=== PATIENT | male | born 1950 | race African-American/Black ===

== ENCOUNTER 2017-08-09 23:12 | Inpatient (IN) ==
[2017-08-10] MEDS ORDERED: ONDANSETRON 4 MG/2 ML VIAL IV STA (03:49)
[2017-08-10 03:51] LABS: Basophils # 0.1 10*3/uL (0.0-0.2); Basophils % 0.5 % (0.0-0.8); Eosinophils % 0.2 % (0.00-10.9); Hematocrit 39.3 VOL% (42.0-52.0); Hemoglobin 13.1 GM/DL (14.0-18.0); Immature Granulocytes % 0.5 %; Immature Granulocytes Absolute 0.07 #; Lymphocytes # 1.4 10*3/uL (1.4-4.0); Lymphocytes % 9.5 % (21.2-54.2); Mean Corpuscular HGB Conc 33.3 GM/DL (32-36); Mean Corpuscular Hemoglobin 33 PG (27-34); Mean Platelet Volume 10.8 FL (9.6-12.0); Monocytes # 1.4 10*3/uL (0.11-0.8); Monocytes % 9.2 % (1.7-12.7); Neutrophils # 12.1 10*3/uL (1.4-7.4); Neutrophils % 80.1 % (38.7-73.9); Platelet Count 334 T/CUMM (130-400); Red Blood Count 3.97 MC/CUMM (3.8-5.5); Red Cell Distribution Width 13.7 % (9.3-17.3); White Blood Count 15.1 T/CUMM (4-12)
[2017-08-10 04:19] LABS: Lactic Acid 1.2 MMOL/L (0.4-2.0)
[2017-08-10] MEDS ORDERED: MORPHINE 4 MG/1 ML VIAL IV STA (04:19)
[2017-08-10] MEDS ORDERED: ONDANSETRON 4 MG/2 ML VIAL ONE ×2 (04:25→14:38)
[2017-08-10] MEDS ORDERED: MORPHINE 4 MG/1 ML VIAL ONE (04:29)
[2017-08-10 05:28] LABS: Sedimentation Rate-Westergren 57 MM/HR (0-20)
[2017-08-10] MEDS ORDERED: ALBUTEROL/IPRATROPIUM 3 ML NEB RESP TX PRN (05:34)
[2017-08-10] MEDS ORDERED: DEXTROSE 50% 25 GM/50 ML VIAL IV PRN ×2 (05:39→14:20)
[2017-08-10] MEDS ORDERED: GLUCAGON 1 MG VIAL IM PRN ×2 (05:39→14:20)
[2017-08-10 05:41] LABS: Albumin 2.5 G/DL (3.4-5.0); Bilirubin,Total 0.5 MG/DL (0.2-1.0); Osmolality,Calculated 275.7 MOS/KG (273-304); Potassium 5.5 MMOL/L (3.5-5.1); Total Protein 8.6 G/DL (6.4-8.3)
[2017-08-10] MEDS ORDERED: LORATADINE 10 MG TABLET PO PRN (05:42)
[2017-08-10] MEDS: HEPARIN 5,000 UNIT/1 ML VIAL SUBCUT SCH ×3 (08:42→21:12)
[2017-08-10] MEDS: INSULIN LISPRO 100 UNIT/ML SUBCUT SCH ×4 (08:42→21:11)
[2017-08-10] MEDS: PIPERACILLIN/TAZOBACTAM 3,375 MG in SODIUM CHLORIDE 0.9% 100 ML IV SCH ×2 (09:07→21:12)
[2017-08-10] MEDS ORDERED: LIDOCAINE 1% 50 ML VIAL ONE (13:34)
[2017-08-10] MEDS ORDERED: BUPIVACAINE MPF 0.25% 30 ML VIAL ONE (13:34)
[2017-08-10] MEDS ORDERED: MIDAZOLAM 2 MG/2 ML VIAL ONE (14:38)
[2017-08-10] MEDS ORDERED: fentaNYL 100 MCG/2 ML VIAL ONE (14:38)
[2017-08-10] MEDS: BENZONATATE 100 MG CAPSULE PO PRN (18:27)
[2017-08-11] MEDS: BENZONATATE 100 MG CAPSULE PO PRN (03:01)
[2017-08-11] MEDS: HEPARIN 5,000 UNIT/1 ML VIAL SUBCUT SCH ×3 (05:55→22:26)
[2017-08-11 06:42] LABS: Basophils # 0.1 10*3/uL (0.0-0.2); Eosinophils # 0.2 10*3/uL (0.0-0.87); Eosinophils % 2.4 % (0.00-10.9); Hematocrit 38.1 VOL% (42.0-52.0); Hemoglobin 12.8 GM/DL (14.0-18.0); Immature Granulocytes % 0.7 %; Immature Granulocytes Absolute 0.06 #; Lymphocytes # 0.8 10*3/uL (1.4-4.0); Lymphocytes % 8.3 % (21.2-54.2); Mean Corpuscular HGB Conc 33.6 GM/DL (32-36); Mean Corpuscular Hemoglobin 33 PG (27-34); Mean Corpuscular Volume 98.2 FL (87-102); Mean Platelet Volume 10.9 FL (9.6-12.0); Monocytes # 0.9 10*3/uL (0.11-0.8); Monocytes % 9.6 % (1.7-12.7); Neutrophils # 7.2 10*3/uL (1.4-7.4); Platelet Count 330 T/CUMM (130-400); Red Blood Count 3.88 MC/CUMM (3.8-5.5); Red Cell Distribution Width 13.5 % (9.3-17.3); White Blood Count 9.2 T/CUMM (4-12)
[2017-08-11 08:50] LABS: Calcium 8.7 MG/DL (8.5-10.1); Osmolality,Calculated 288.7 MOS/KG (273-304)
[2017-08-11 08:53] LABS: Potassium 6.6 MMOL/L (3.5-5.1)
[2017-08-11] MEDS: ONDANSETRON 4 MG/2 ML VIAL IV PRN (09:33)
[2017-08-11] MEDS: PIPERACILLIN/TAZOBACTAM 3,375 MG in SODIUM CHLORIDE 0.9% 100 ML IV SCH ×2 (09:38→23:37)
[2017-08-11] MEDS: INSULIN LISPRO 100 UNIT/ML SUBCUT SCH ×4 (09:39→21:49)
[2017-08-11] MEDS ORDERED: HEPARIN 10,000 UNIT/10 ML VIAL IV SCH (15:30)
[2017-08-11] MEDS ORDERED: VANCOMYCIN INJ 1,000 MG in SODIUM CHLORIDE 0.9% 250 ML IV PRN (15:55)
[2017-08-11] MEDS ORDERED: VANCOMYCIN INJ 2,250 MG in SODIUM CHLORIDE 0.9% 500 ML IV ONE (17:00)
[2017-08-12] MEDS: HEPARIN 5,000 UNIT/1 ML VIAL SUBCUT SCH ×3 (06:50→22:10)
[2017-08-12 07:31] LABS: Basophils # 0.1 10*3/uL (0.0-0.2); Eosinophils # 0.4 10*3/uL (0.0-0.87); Eosinophils % 3.4 % (0.00-10.9); Hematocrit 36.9 VOL% (42.0-52.0); Hemoglobin 11.9 GM/DL (14.0-18.0); Immature Granulocytes % 0.6 %; Immature Granulocytes Absolute 0.08 #; Lymphocytes # 1.3 10*3/uL (1.4-4.0); Lymphocytes % 10.4 % (21.2-54.2); Mean Corpuscular HGB Conc 32.2 GM/DL (32-36); Mean Corpuscular Hemoglobin 32 PG (27-34); Mean Platelet Volume 10.8 FL (9.6-12.0); Monocytes # 1.4 10*3/uL (0.11-0.8); Monocytes % 11.3 % (1.7-12.7); Neutrophils # 9.3 10*3/uL (1.4-7.4); Neutrophils % 73.3 % (38.7-73.9); Platelet Count 336 T/CUMM (130-400); Red Blood Count 3.69 MC/CUMM (3.8-5.5); Red Cell Distribution Width 13.5 % (9.3-17.3); White Blood Count 12.6 T/CUMM (4-12)
[2017-08-12 08:00] LABS: Calcium 8.4 MG/DL (8.5-10.1)
[2017-08-12 08:03] LABS: Potassium 6.2 MMOL/L (3.5-5.1)
[2017-08-12] MEDS ORDERED: SODIUM POLYSTYRENE SULFATE 15 GM/60 ML BOTTLE PO ONE ×2 (08:39→15:00)
[2017-08-12] MEDS: INSULIN LISPRO 100 UNIT/ML SUBCUT SCH ×4 (09:09→22:22)
[2017-08-12] MEDS: PIPERACILLIN/TAZOBACTAM 3,375 MG in SODIUM CHLORIDE 0.9% 100 ML IV SCH (09:09)
[2017-08-12] MEDS: ASPIRIN EC 81 MG TABLET PO SCH (11:40)
[2017-08-12] MEDS: ERGOCALCIFEROL 50,000 UNIT CAPSULE PO SCH (11:40)
[2017-08-12] MEDS ORDERED: INSULIN GLARGINE 100 UNIT/ML SUBCUT SCH ×2 (19:00→21:00)
[2017-08-12] MEDS ORDERED: INSULIN DETEMIR 100 UNIT/ML SUBCUT SCH (19:00)
[2017-08-12] MEDS: METOPROLOL TARTRATE 25 MG TABLET PO SCH (22:10)
[2017-08-12] MEDS: GABAPENTIN 300 MG CAPSULE PO SCH (22:11)
[2017-08-13] MEDS: HEPARIN 5,000 UNIT/1 ML VIAL SUBCUT SCH ×3 (05:36→21:22)
[2017-08-13] MEDS: ASPIRIN EC 81 MG TABLET PO SCH (08:11)
[2017-08-13] MEDS: METOPROLOL TARTRATE 25 MG TABLET PO SCH ×2 (08:11→21:18)
[2017-08-13] MEDS: INSULIN GLARGINE 100 UNIT/ML SUBCUT SCH ×2 (08:13→21:21)
[2017-08-13] MEDS: INSULIN LISPRO 100 UNIT/ML SUBCUT SCH ×4 (08:13→21:20)
[2017-08-13] MEDS ORDERED: VANCOMYCIN INJ 1,000 MG in SODIUM CHLORIDE 0.9% 250 ML IV ONE (16:00)
[2017-08-13] MEDS: GABAPENTIN 300 MG CAPSULE PO SCH (21:19)
[2017-08-14] MEDS: HEPARIN 5,000 UNIT/1 ML VIAL SUBCUT SCH ×3 (06:25→22:42)
[2017-08-14] MEDS ORDERED: BUPIVACAINE MPF 0.25% 30 ML VIAL ONE (07:50)
[2017-08-14] MEDS ORDERED: LIDOCAINE 1%/EPI INJ 20 ML VIAL ONE (07:50)
[2017-08-14] MEDS: ASPIRIN EC 81 MG TABLET PO SCH (08:04)
[2017-08-14] MEDS: INSULIN LISPRO 100 UNIT/ML SUBCUT SCH ×4 (08:04→22:42)
[2017-08-14] MEDS: INSULIN GLARGINE 100 UNIT/ML SUBCUT SCH ×2 (08:04→21:53)
[2017-08-14] MEDS: METOPROLOL TARTRATE 25 MG TABLET PO SCH ×2 (08:05→21:53)
[2017-08-14] MEDS ORDERED: PROPOFOL 200 MG/20 ML VIAL IV ONE (09:36)
[2017-08-14 10:43] LABS: Basophils # 0.1 10*3/uL (0.0-0.2); Basophils % 0.8 % (0.0-0.8); Eosinophils # 0.8 10*3/uL (0.0-0.87); Eosinophils % 6.3 % (0.00-10.9); Hematocrit 37.6 VOL% (42.0-52.0); Hemoglobin 12.3 GM/DL (14.0-18.0); Immature Granulocytes % 0.6 %; Immature Granulocytes Absolute 0.07 #; Lymphocytes # 1.4 10*3/uL (1.4-4.0); Lymphocytes % 11.1 % (21.2-54.2); Mean Corpuscular HGB Conc 32.7 GM/DL (32-36); Mean Corpuscular Hemoglobin 33 PG (27-34); Mean Corpuscular Volume 99.7 FL (87-102); Mean Platelet Volume 10.8 FL (9.6-12.0); Monocytes # 1.5 10*3/uL (0.11-0.8); Monocytes % 12.3 % (1.7-12.7); Neutrophils # 8.4 10*3/uL (1.4-7.4); Neutrophils % 68.9 % (38.7-73.9); Platelet Count 363 T/CUMM (130-400); Red Blood Count 3.77 MC/CUMM (3.8-5.5); Red Cell Distribution Width 13.4 % (9.3-17.3); White Blood Count 12.2 T/CUMM (4-12)
[2017-08-14 10:53] LABS: Calcium 8.6 MG/DL (8.5-10.1)
[2017-08-14 10:54] LABS: Osmolality,Calculated 283.4 MOS/KG (273-304); Potassium 4.6 MMOL/L (3.5-5.1)
[2017-08-14] MEDS: GABAPENTIN 300 MG CAPSULE PO SCH (21:53)
[2017-08-15 04:50] LABS: Basophils # 0.1 10*3/uL (0.0-0.2); Basophils % 0.8 % (0.0-0.8); Eosinophils # 0.6 10*3/uL (0.0-0.87); Eosinophils % 6.1 % (0.00-10.9); Hematocrit 36.2 VOL% (42.0-52.0); Hemoglobin 12.3 GM/DL (14.0-18.0); Immature Granulocytes % 0.6 %; Immature Granulocytes Absolute 0.06 #; Lymphocytes # 1.5 10*3/uL (1.4-4.0); Lymphocytes % 14.3 % (21.2-54.2); Mean Corpuscular Hemoglobin 33 PG (27-34); Mean Platelet Volume 10.6 FL (9.6-12.0); Monocytes # 1.3 10*3/uL (0.11-0.8); Monocytes % 12.3 % (1.7-12.7); Neutrophils # 6.8 10*3/uL (1.4-7.4); Neutrophils % 65.9 % (38.7-73.9); Platelet Count 356 T/CUMM (130-400); Red Blood Count 3.77 MC/CUMM (3.8-5.5); Red Cell Distribution Width 13.3 % (9.3-17.3); White Blood Count 10.4 T/CUMM (4-12)
[2017-08-15 05:34] LABS: Alanine Aminotransferase 42 U/L (16-61); Albumin 1.9 G/DL (3.4-5.0); Alkaline Phosphatase 174 U/L (45-117); Aspartate Amino Transferase 51 U/L (0-37); Bilirubin,Total < 0.39 MG/DL (0.2-1.0); Blood Urea Nitrogen 56 MG/DL (7-18); Calcium 7.9 MG/DL (8.5-10.1); Total Protein 6.9 G/DL (6.4-8.3)
[2017-08-15 05:35] LABS: Glucose 205 MG/DL (74-106); Osmolality,Calculated 291.1 MOS/KG (273-304); Potassium 4.8 MMOL/L (3.5-5.1); Sodium 135 MMOL/L (136-145)
[2017-08-15] MEDS: HEPARIN 5,000 UNIT/1 ML VIAL SUBCUT SCH ×3 (06:21→21:55)
[2017-08-15] MEDS: INSULIN GLARGINE 100 UNIT/ML SUBCUT SCH (09:00)
[2017-08-15] MEDS: ASPIRIN EC 81 MG TABLET PO SCH (09:00)
[2017-08-15] MEDS: INSULIN LISPRO 100 UNIT/ML SUBCUT SCH ×4 (09:00→21:45)
[2017-08-15] MEDS: METOPROLOL TARTRATE 25 MG TABLET PO SCH ×2 (09:00→21:44)
[2017-08-15] MEDS ORDERED: INSULIN GLARGINE 100 UNIT/ML SUBCUT SCH (13:44)
[2017-08-15] MEDS: GABAPENTIN 300 MG CAPSULE PO SCH (21:44)
[2017-08-16 02:26] LABS: Basophils # 0.1 10*3/uL (0.0-0.2); Basophils % 0.9 % (0.0-0.8); Eosinophils # 0.6 10*3/uL (0.0-0.87); Eosinophils % 5.5 % (0.00-10.9); Hematocrit 33.3 VOL% (42.0-52.0); Hemoglobin 11.4 GM/DL (14.0-18.0); Immature Granulocytes % 0.6 %; Immature Granulocytes Absolute 0.06 #; Lymphocytes # 1.5 10*3/uL (1.4-4.0); Lymphocytes % 15.1 % (21.2-54.2); Mean Corpuscular HGB Conc 34.2 GM/DL (32-36); Mean Corpuscular Hemoglobin 33 PG (27-34); Mean Corpuscular Volume 95.7 FL (87-102); Mean Platelet Volume 10.6 FL (9.6-12.0); Monocytes # 1.2 10*3/uL (0.11-0.8); Neutrophils # 6.7 10*3/uL (1.4-7.4); Neutrophils % 65.9 % (38.7-73.9); Platelet Count 350 T/CUMM (130-400); Red Blood Count 3.48 MC/CUMM (3.8-5.5); Red Cell Distribution Width 13.2 % (9.3-17.3); White Blood Count 10.2 T/CUMM (4-12)
[2017-08-16 02:50] LABS: Calcium 7.7 MG/DL (8.5-10.1); Osmolality,Calculated 292.4 MOS/KG (273-304); Potassium 4.6 MMOL/L (3.5-5.1)
[2017-08-16] MEDS: HEPARIN 5,000 UNIT/1 ML VIAL SUBCUT SCH ×3 (06:00→22:03)
[2017-08-16] MEDS: INSULIN LISPRO 100 UNIT/ML SUBCUT SCH ×4 (09:17→22:04)
[2017-08-16] MEDS: ASPIRIN EC 81 MG TABLET PO SCH (09:17)
[2017-08-16] MEDS: INSULIN GLARGINE 100 UNIT/ML SUBCUT SCH ×2 (09:17→22:02)
[2017-08-16] MEDS: METOPROLOL TARTRATE 25 MG TABLET PO SCH ×2 (09:17→22:02)
[2017-08-16] MEDS: GABAPENTIN 300 MG CAPSULE PO SCH (22:02)
[2017-08-17 04:51] LABS: Basophils # 0.1 10*3/uL (0.0-0.2); Eosinophils # 0.6 10*3/uL (0.0-0.87); Eosinophils % 6.2 % (0.00-10.9); Hematocrit 33.7 VOL% (42.0-52.0); Hemoglobin 11.7 GM/DL (14.0-18.0); Immature Granulocytes % 0.9 %; Immature Granulocytes Absolute 0.08 #; Lymphocytes % 21.2 % (21.2-54.2); Mean Corpuscular HGB Conc 34.7 GM/DL (32-36); Mean Corpuscular Hemoglobin 33 PG (27-34); Mean Corpuscular Volume 95.2 FL (87-102); Mean Platelet Volume 10.6 FL (9.6-12.0); Neutrophils # 5.5 10*3/uL (1.4-7.4); Neutrophils % 59.7 % (38.7-73.9); Platelet Count 364 T/CUMM (130-400); Red Blood Count 3.54 MC/CUMM (3.8-5.5); Red Cell Distribution Width 13.2 % (9.3-17.3); White Blood Count 9.3 T/CUMM (4-12)
[2017-08-17] MEDS: HEPARIN 5,000 UNIT/1 ML VIAL SUBCUT SCH ×3 (06:26→21:26)
[2017-08-17] MEDS ORDERED: ceFAZolin 1,000 MG in SYRINGE 1 EACH IV ONE (07:17)
[2017-08-17] MEDS: INSULIN LISPRO 100 UNIT/ML SUBCUT SCH ×4 (09:15→20:50)
[2017-08-17] MEDS: INSULIN GLARGINE 100 UNIT/ML SUBCUT SCH ×2 (09:15→20:50)
[2017-08-17] MEDS: ASPIRIN EC 81 MG TABLET PO SCH (10:51)
[2017-08-17] MEDS: METOPROLOL TARTRATE 25 MG TABLET PO SCH ×3 (10:51→20:50)
[2017-08-17] MEDS ORDERED: METOPROLOL TARTRATE 25 MG TABLET ONE (12:11)
[2017-08-17] MEDS ORDERED: HEPARIN 5,000 UNIT/1 ML VIAL ONE (12:15)
[2017-08-17] MEDS ORDERED: BUPIVACAINE 0.5% /EPI 10 ML VIAL ONE (12:15)
[2017-08-17] MEDS ORDERED: LIDOCAINE 1%/EPI INJ 20 ML VIAL ONE (12:15)
[2017-08-17] MEDS ORDERED: DIAZEPAM 5 MG TABLET PO ONE (13:40)
[2017-08-17] MEDS ORDERED: PROPOFOL 200 MG/20 ML VIAL IV ONE (14:03)
[2017-08-17] MEDS ORDERED: MIDAZOLAM 2 MG/2 ML VIAL ONE (14:03)
[2017-08-17] MEDS ORDERED: fentaNYL 100 MCG/2 ML VIAL ONE (14:04)
[2017-08-17] MEDS: GABAPENTIN 300 MG CAPSULE PO SCH (20:50)
[2017-08-18] MEDS ORDERED: ceFAZolin 1,000 MG in SYRINGE 1 EACH IV ONE ×2 (00:01→13:00)
[2017-08-18] MEDS: HEPARIN 5,000 UNIT/1 ML VIAL SUBCUT SCH ×3 (05:55→21:04)
[2017-08-18] MEDS: INSULIN GLARGINE 100 UNIT/ML SUBCUT SCH ×2 (08:16→20:36)
[2017-08-18] MEDS: INSULIN LISPRO 100 UNIT/ML SUBCUT SCH ×4 (08:16→20:36)
[2017-08-18] MEDS: ASPIRIN EC 81 MG TABLET PO SCH (08:49)
[2017-08-18] MEDS: METOPROLOL TARTRATE 25 MG TABLET PO SCH ×2 (08:49→20:37)
[2017-08-18] MEDS ORDERED: TISSUE ADHESIVE 1 EACH APPLICATOR TOP ONE (13:32)
[2017-08-18] MEDS ORDERED: HEPARIN LOCK FLUSH 500 UNIT/5 ML SYRINGE IV ONE (13:40)
[2017-08-18] MEDS: MORPHINE 4 MG/1 ML VIAL IV PRN ×2 (14:55→18:27)
[2017-08-18] MEDS: GABAPENTIN 300 MG CAPSULE PO SCH (20:37)
[2017-08-19] MEDS: MORPHINE 4 MG/1 ML VIAL IV PRN ×2 (04:21→12:49)
[2017-08-19 05:13] LABS: Calcium 8.4 MG/DL (8.5-10.1); Osmolality,Calculated 294.5 MOS/KG (273-304)
[2017-08-19 05:22] LABS: Potassium 6.7 MMOL/L (3.5-5.1)
[2017-08-19] MEDS ORDERED: SODIUM POLYSTYRENE SULFATE 15 GM/60 ML BOTTLE PO ONE (05:30)
[2017-08-19] MEDS: HEPARIN 5,000 UNIT/1 ML VIAL SUBCUT SCH ×3 (05:38→22:47)
[2017-08-19] MEDS: ONDANSETRON 4 MG/2 ML VIAL IV PRN (06:15)
[2017-08-19] MEDS: INSULIN LISPRO 100 UNIT/ML SUBCUT SCH ×4 (07:30→20:00)
[2017-08-19] MEDS: INSULIN GLARGINE 100 UNIT/ML SUBCUT SCH ×2 (07:30→20:00)
[2017-08-19] MEDS: METOPROLOL TARTRATE 25 MG TABLET PO SCH ×2 (09:00→20:00)
[2017-08-19] MEDS: SODIUM HYPOCHLORITE 0.25% IRRIG 473 ML BOTTLE TOP SCH (14:15)
[2017-08-19] MEDS: ERGOCALCIFEROL 50,000 UNIT CAPSULE PO SCH (15:02)
[2017-08-19] MEDS: ASPIRIN EC 81 MG TABLET PO SCH (15:03)
[2017-08-19] MEDS: GABAPENTIN 300 MG CAPSULE PO SCH (20:00)
[2017-08-20] MEDS: MORPHINE 4 MG/1 ML VIAL IV PRN (01:45)
[2017-08-20 04:43] LABS: Basophils # 0.1 10*3/uL (0.0-0.2); Basophils % 0.8 % (0.0-0.8); Eosinophils # 0.3 10*3/uL (0.0-0.87); Eosinophils % 2.5 % (0.00-10.9); Hematocrit 32.1 VOL% (42.0-52.0); Hemoglobin 11.1 GM/DL (14.0-18.0); Immature Granulocytes % 1.1 %; Immature Granulocytes Absolute 0.14 #; Lymphocytes # 1.6 10*3/uL (1.4-4.0); Lymphocytes % 12.3 % (21.2-54.2); Mean Corpuscular HGB Conc 34.6 GM/DL (32-36); Mean Corpuscular Hemoglobin 33 PG (27-34); Mean Corpuscular Volume 93.9 FL (87-102); Mean Platelet Volume 10.2 FL (9.6-12.0); Monocytes # 1.2 10*3/uL (0.11-0.8); Neutrophils # 9.9 10*3/uL (1.4-7.4); Neutrophils % 74.3 % (38.7-73.9); Platelet Count 415 T/CUMM (130-400); Red Blood Count 3.42 MC/CUMM (3.8-5.5); Red Cell Distribution Width 13.3 % (9.3-17.3); White Blood Count 13.3 T/CUMM (4-12)
[2017-08-20 05:12] LABS: Calcium 8.3 MG/DL (8.5-10.1); Osmolality,Calculated 283.8 MOS/KG (273-304); Potassium 5.9 MMOL/L (3.5-5.1)
[2017-08-20] MEDS: HEPARIN 5,000 UNIT/1 ML VIAL SUBCUT SCH ×3 (05:28→23:16)
[2017-08-20] MEDS: ASPIRIN EC 81 MG TABLET PO SCH (08:22)
[2017-08-20] MEDS: METOPROLOL TARTRATE 25 MG TABLET PO SCH ×2 (08:22→22:29)
[2017-08-20] MEDS: INSULIN LISPRO 100 UNIT/ML SUBCUT SCH ×4 (08:24→22:28)
[2017-08-20] MEDS: INSULIN GLARGINE 100 UNIT/ML SUBCUT SCH ×2 (08:24→22:28)
[2017-08-20] MEDS: ONDANSETRON 4 MG/2 ML VIAL IV PRN (10:31)
[2017-08-20] MEDS: SODIUM HYPOCHLORITE 0.25% IRRIG 473 ML BOTTLE TOP SCH (18:30)
[2017-08-20] MEDS: GABAPENTIN 300 MG CAPSULE PO SCH (22:29)
[2017-08-21] MEDS: HEPARIN 5,000 UNIT/1 ML VIAL SUBCUT SCH ×3 (05:38→21:32)
[2017-08-21] MEDS: INSULIN LISPRO 100 UNIT/ML SUBCUT SCH ×4 (09:16→21:32)
[2017-08-21] MEDS: INSULIN GLARGINE 100 UNIT/ML SUBCUT SCH ×2 (09:41→21:32)
[2017-08-21] MEDS: METOPROLOL TARTRATE 25 MG TABLET PO SCH ×2 (09:42→21:31)
[2017-08-21] MEDS: ASPIRIN EC 81 MG TABLET PO SCH (09:42)
[2017-08-21] MEDS: SODIUM HYPOCHLORITE 0.25% IRRIG 473 ML BOTTLE TOP SCH (09:42)
[2017-08-21] MEDS: GABAPENTIN 300 MG CAPSULE PO SCH (21:31)
[2017-08-22] MEDS: HEPARIN 5,000 UNIT/1 ML VIAL SUBCUT SCH ×3 (06:26→21:21)
[2017-08-22] MEDS: INSULIN LISPRO 100 UNIT/ML SUBCUT SCH ×4 (09:16→20:28)
[2017-08-22] MEDS: INSULIN GLARGINE 100 UNIT/ML SUBCUT SCH ×2 (09:17→20:30)
[2017-08-22] MEDS: SODIUM HYPOCHLORITE 0.25% IRRIG 473 ML BOTTLE TOP SCH (09:17)
[2017-08-22] MEDS: ASPIRIN EC 81 MG TABLET PO SCH (09:17)
[2017-08-22] MEDS: METOPROLOL TARTRATE 25 MG TABLET PO SCH ×2 (09:17→20:30)
[2017-08-22] MEDS: MORPHINE 4 MG/1 ML VIAL IV PRN (14:30)
[2017-08-22] MEDS: GABAPENTIN 300 MG CAPSULE PO SCH (20:30)
[2017-08-23] MEDS: HEPARIN 5,000 UNIT/1 ML VIAL SUBCUT SCH (06:13)
[2017-08-23] MEDS: ASPIRIN EC 81 MG TABLET PO SCH (10:18)
[2017-08-23] MEDS: INSULIN LISPRO 100 UNIT/ML SUBCUT SCH ×2 (10:18→13:32)
[2017-08-23] MEDS: INSULIN GLARGINE 100 UNIT/ML SUBCUT SCH (10:18)
[2017-08-23] MEDS: SODIUM HYPOCHLORITE 0.25% IRRIG 473 ML BOTTLE TOP SCH (10:18)
[2017-08-23] MEDS: METOPROLOL TARTRATE 25 MG TABLET PO SCH (10:19)
[2017-08-23 12:51] VITALS: BP 113/49
== END 2017-08-23 13:10 | DRG 853 ==
LOC: N.ED 23:12 → SUATTDRO 08-10 05:31 → N.EDINP 08-10 05:31 → N.3E 08-10 06:58
PROVIDERS: ADMIT Family Medicine; ATTEND Hospitalist

== ENCOUNTER 2017-08-28 10:53 | Inpatient (IN) ==
[2017-08-28 11:52] LABS: Basophils % 0.5 % (0.0-0.8); Eosinophils # 0.1 10*3/uL (0.0-0.87); Eosinophils % 0.7 % (0.00-10.9); Hematocrit 36.5 VOL% (42.0-52.0); Hemoglobin 12.3 GM/DL (14.0-18.0); Lymphocytes # 0.9 10*3/uL (1.4-4.0); Lymphocytes % 11.4 % (21.2-54.2); Mean Corpuscular HGB Conc 33.7 GM/DL (32-36); Mean Corpuscular Hemoglobin 32 PG (27-34); Mean Corpuscular Volume 94.8 FL (87-102); Mean Platelet Volume 10.7 FL (9.6-12.0); Monocytes # 0.6 10*3/uL (0.11-0.8); Monocytes % 7.8 % (1.7-12.7); Neutrophils # 5.7 10*3/uL (1.4-7.4); Neutrophils % 75.6 % (38.7-73.9); Platelet Count 446 T/CUMM (130-400); Red Blood Count 3.85 MC/CUMM (3.8-5.5); Red Cell Distribution Width 13.9 % (9.3-17.3); White Blood Count 7.5 T/CUMM (4-12)
[2017-08-28 12:04] LABS: Partial Thromboplastin Time 29.4 SECS (0-40)
[2017-08-28] MEDS ORDERED: HEPARIN LOCK FLUSH 500 UNIT/5 ML SYRINGE IV ONE ×2 (12:23→13:40)
[2017-08-28 13:07] LABS: Sedimentation Rate-Westergren 30 MM/HR (0-20)
[2017-08-28 13:14] LABS: Albumin 1.8 G/DL (3.4-5.0); Bilirubin,Total 0.4 MG/DL (0.2-1.0); Calcium 7.4 MG/DL (8.5-10.1); Osmolality,Calculated 287.9 MOS/KG (273-304)
[2017-08-28 13:16] LABS: Potassium 6.2 MMOL/L (3.5-5.1)
[2017-08-28] MEDS ORDERED: CALCIUM CHLORIDE 1,000 MG/10 ML SYRINGE IV STA (13:19)
[2017-08-28] MEDS ORDERED: ALBUTEROL NEB SOLN 5 MG/ML 20 ML/BOTTLE CONT NEB STA (13:19)
[2017-08-28] MEDS ORDERED: DEXTROSE 50% 25 GM/50 ML VIAL IV STA (13:19)
[2017-08-28] MEDS ORDERED: INSULIN REGULAR 100 UNIT/ML IV STA (13:19)
[2017-08-28] MEDS ORDERED: DEXTROSE 50% 25 GM/50 ML SYRINGE IV ONE (13:39)
[2017-08-28] MEDS ORDERED: DEXTROSE 50% 25 GM/50 ML VIAL IV PRN (14:13)
[2017-08-28] MEDS ORDERED: GLUCAGON 1 MG VIAL IM PRN (14:13)
[2017-08-28] MEDS ORDERED: LORATADINE 10 MG TABLET PO PRN (14:20)
[2017-08-28] MEDS ORDERED: HEPARIN 10,000 UNIT/10 ML VIAL IV SCH (14:30)
[2017-08-28] MEDS ORDERED: MEPERIDINE 25 MG/1 ML VIAL ONE (15:14)
[2017-08-28] MEDS ORDERED: ONDANSETRON 4 MG/2 ML VIAL IV ONE (15:22)
[2017-08-28] MEDS ORDERED: MEPERIDINE 25 MG/1 ML VIAL IV ONE (15:22)
[2017-08-28] MEDS ORDERED: DAPTOmycin 500 MG VIAL IV SCH ×2 (15:30)
[2017-08-28] MEDS ORDERED: VANCOMYCIN INJ 1,000 MG in SODIUM CHLORIDE 0.9% 250 ML IV PRN (16:48)
[2017-08-28] MEDS: diphenhydrAMINE CAP 25 MG CAPSULE PO SCH ×2 (17:00→21:12)
[2017-08-28] MEDS ORDERED: CLINDAMYCIN INJ 900 MG in PREMIX 1 EACH IV SCH (17:00)
[2017-08-28] MEDS: INSULIN REGULAR 100 UNIT/ML SUBCUT SCH ×2 (17:01→21:22)
[2017-08-28] MEDS ORDERED: VANCOMYCIN INJ 2,500 MG in SODIUM CHLORIDE 0.9% 500 ML IV ONE (20:00)
[2017-08-28] MEDS ORDERED: INSULIN GLARGINE 100 UNIT/ML SUBCUT SCH (21:00)
[2017-08-28] MEDS: METOPROLOL TARTRATE 25 MG TABLET PO SCH (21:12)
[2017-08-28] MEDS: MORPHINE 4 MG/1 ML VIAL IV PRN (22:42)
[2017-08-28] MEDS ORDERED: AMIODARONE INJ 450 MG in DEXTROSE 5% 241 ML IV SCH (23:30)
[2017-08-28] MEDS ORDERED: AMIODARONE INJ 150 MG in DEXTROSE 5% 100 ML IV ONE (23:30)
[2017-08-29] MEDS ORDERED: methylPREDNISolone SOD SUC 40 MG/1 ML VIAL IV SCH
[2017-08-29] MEDS: MORPHINE 4 MG/1 ML VIAL IV PRN ×3 (01:30→16:17)
[2017-08-29] MEDS ORDERED: methylPREDNISolone SOD SUC 40 MG/1 ML VIAL IV ONE (01:30)
[2017-08-29] MEDS: CEFTAROLINE 400 MG in SODIUM CHLORIDE 0.9% 100 ML IV SCH ×2 (01:37→13:25)
[2017-08-29] MEDS ORDERED: AMIODARONE INJ 450 MG in DEXTROSE 5% 241 ML IV SCH (05:30)
[2017-08-29] MEDS ORDERED: INSULIN GLARGINE 100 UNIT/ML SUBCUT SCH (07:30)
[2017-08-29 07:56] LABS: Basophils % 0.3 % (0.0-0.8); Hematocrit 29.8 VOL% (42.0-52.0); Immature Granulocytes % 2.5 %; Immature Granulocytes Absolute 0.27 #; Lymphocytes # 0.3 10*3/uL (1.4-4.0); Lymphocytes % 2.6 % (21.2-54.2); Mean Corpuscular HGB Conc 33.6 GM/DL (32-36); Mean Corpuscular Hemoglobin 32 PG (27-34); Mean Corpuscular Volume 95.2 FL (87-102); Monocytes # 0.2 10*3/uL (0.11-0.8); Monocytes % 1.6 % (1.7-12.7); Neutrophils # 10.2 10*3/uL (1.4-7.4); Platelet Count 420 T/CUMM (130-400); Red Blood Count 3.13 MC/CUMM (3.8-5.5); Red Cell Distribution Width 13.9 % (9.3-17.3); White Blood Count 10.9 T/CUMM (4-12)
[2017-08-29 08:04] LABS: Calcium 7.5 MG/DL (8.5-10.1); Osmolality,Calculated 284.4 MOS/KG (273-304); Potassium 5.8 MMOL/L (3.5-5.1)
[2017-08-29] MEDS ORDERED: predniSONE 10 MG TABLET PO SCH (09:00)
[2017-08-29] MEDS ORDERED: CLOPIDOGREL 75 MG TABLET PO SCH (09:00)
[2017-08-29] MEDS ORDERED: ERGOCALCIFEROL 50,000 UNIT CAPSULE PO SCH (09:00)
[2017-08-29] MEDS: INSULIN REGULAR 100 UNIT/ML SUBCUT SCH ×4 (10:47→21:28)
[2017-08-29] MEDS ORDERED: EPOETIN ALFA 10,000 UNIT/1 ML VIAL IV PRN (11:16)
[2017-08-29] MEDS: INSULIN GLARGINE 100 UNIT/ML SUBCUT SCH ×2 (11:36→21:29)
[2017-08-29] MEDS: diphenhydrAMINE CAP 25 MG CAPSULE PO SCH ×3 (13:25→21:28)
[2017-08-29] MEDS: predniSONE 20 MG TABLET PO SCH ×2 (13:25→21:28)
[2017-08-29] MEDS: PANTOPRAZOLE 40 MG TABLET PO SCH (13:26)
[2017-08-29] MEDS: METOPROLOL TARTRATE 25 MG TABLET PO SCH ×2 (13:26→22:15)
[2017-08-29] MEDS: ASPIRIN EC 81 MG TABLET PO SCH (13:26)
[2017-08-29] MEDS: CALCIUM ACETATE 667 MG CAPSULE PO SCH ×2 (13:28→17:39)
[2017-08-29 13:46] LABS: Thyroid Stimulating Hormone 0.882 uIU/ml (0.358-3.74)
[2017-08-29] MEDS: ENOXAPARIN 30 MG/0.3 ML SYRINGE SUBCUT SCH (16:16)
[2017-08-29] MEDS: SODIUM HYPOCHLORITE 0.25% IRRIG 473 ML BOTTLE TOP SCH (16:46)
[2017-08-29] MEDS ORDERED: WARFARIN 5 MG TABLET PO SCH (18:00)
[2017-08-30] MEDS: ENOXAPARIN 30 MG/0.3 ML SYRINGE SUBCUT SCH ×2 (01:54→14:49)
[2017-08-30] MEDS: CEFTAROLINE 400 MG in SODIUM CHLORIDE 0.9% 100 ML IV SCH ×2 (01:54→13:08)
[2017-08-30 05:57] LABS: Basophils % 0.1 % (0.0-0.8); Eosinophils % 0.3 % (0.00-10.9); Hematocrit 29.3 VOL% (42.0-52.0); Hemoglobin 9.7 GM/DL (14.0-18.0); Immature Granulocytes % 2.4 %; Immature Granulocytes Absolute 0.31 #; Lymphocytes # 0.8 10*3/uL (1.4-4.0); Lymphocytes % 6.1 % (21.2-54.2); Mean Corpuscular HGB Conc 33.1 GM/DL (32-36); Mean Corpuscular Hemoglobin 32 PG (27-34); Mean Platelet Volume 10.1 FL (9.6-12.0); Monocytes # 0.9 10*3/uL (0.11-0.8); Monocytes % 7.2 % (1.7-12.7); Neutrophils # 10.8 10*3/uL (1.4-7.4); Neutrophils % 83.9 % (38.7-73.9); Platelet Count 446 T/CUMM (130-400); Red Blood Count 2.99 MC/CUMM (3.8-5.5); Red Cell Distribution Width 13.9 % (9.3-17.3); White Blood Count 12.9 T/CUMM (4-12)
[2017-08-30 06:30] LABS: Calcium 7.8 MG/DL (8.5-10.1); Osmolality,Calculated 291.2 MOS/KG (273-304); Potassium 5.6 MMOL/L (3.5-5.1)
[2017-08-30] MEDS: INSULIN GLARGINE 100 UNIT/ML SUBCUT SCH ×2 (08:22→22:45)
[2017-08-30] MEDS: CALCIUM ACETATE 667 MG CAPSULE PO SCH ×3 (08:23→17:25)
[2017-08-30] MEDS: INSULIN REGULAR 100 UNIT/ML SUBCUT SCH ×4 (08:23→22:45)
[2017-08-30] MEDS: ASPIRIN EC 81 MG TABLET PO SCH (08:23)
[2017-08-30] MEDS: METOPROLOL TARTRATE 25 MG TABLET PO SCH ×2 (08:24→21:41)
[2017-08-30] MEDS: predniSONE 20 MG TABLET PO SCH ×2 (08:24→21:41)
[2017-08-30] MEDS: PANTOPRAZOLE 40 MG TABLET PO SCH (08:24)
[2017-08-30] MEDS: diphenhydrAMINE CAP 25 MG CAPSULE PO SCH ×3 (08:24→21:41)
[2017-08-30] MEDS: SODIUM HYPOCHLORITE 0.25% IRRIG 473 ML BOTTLE TOP SCH (08:25)
[2017-08-30] MEDS: MORPHINE 4 MG/1 ML VIAL IV PRN ×3 (08:25→17:25)
[2017-08-30] MEDS: CALCITRIOL 0.25 MCG CAPSULE PO SCH (10:45)
[2017-08-30] MEDS: ONDANSETRON 4 MG/2 ML VIAL IV PRN ×2 (14:49→18:45)
[2017-08-31] MEDS: CEFTAROLINE 400 MG in SODIUM CHLORIDE 0.9% 100 ML IV SCH ×2 (02:01→15:51)
[2017-08-31] MEDS: ONDANSETRON 4 MG/2 ML VIAL IV PRN (07:32)
[2017-08-31] MEDS: INSULIN REGULAR 100 UNIT/ML SUBCUT SCH ×4 (09:02→21:34)
[2017-08-31] MEDS: CALCIUM ACETATE 667 MG CAPSULE PO SCH ×3 (09:03→18:03)
[2017-08-31] MEDS: INSULIN GLARGINE 100 UNIT/ML SUBCUT SCH ×2 (09:03→21:34)
[2017-08-31] MEDS: METOPROLOL TARTRATE 25 MG TABLET PO SCH ×2 (09:11→20:59)
[2017-08-31] MEDS: ASPIRIN EC 81 MG TABLET PO SCH (09:11)
[2017-08-31] MEDS: CALCITRIOL 0.25 MCG CAPSULE PO SCH (09:12)
[2017-08-31] MEDS: diphenhydrAMINE CAP 25 MG CAPSULE PO SCH ×3 (09:13→20:59)
[2017-08-31] MEDS: PANTOPRAZOLE 40 MG TABLET PO SCH (09:13)
[2017-08-31] MEDS: predniSONE 20 MG TABLET PO SCH ×2 (09:13→20:59)
[2017-08-31] MEDS: SODIUM HYPOCHLORITE 0.25% IRRIG 473 ML BOTTLE TOP SCH (10:25)
[2017-08-31] MEDS ORDERED: MIDAZOLAM 2 MG/2 ML VIAL ONE (10:29)
[2017-08-31] MEDS ORDERED: fentaNYL 100 MCG/2 ML VIAL ONE (10:29)
[2017-08-31] MEDS ORDERED: DIAZEPAM 5 MG TABLET PO ONE (10:33)
[2017-08-31] MEDS ORDERED: MIDAZOLAM 2 MG/2 ML VIAL IV ONE (10:33)
[2017-08-31] MEDS ORDERED: fentaNYL 100 MCG/2 ML VIAL IV ONE (10:33)
[2017-08-31] MEDS ORDERED: HEPARIN 5,000 UNIT/1 ML VIAL ONE (11:13)
[2017-08-31] MEDS ORDERED: HEPARIN 5,000 UNIT/1 ML VIAL IV ONE (11:18)
[2017-08-31] MEDS ORDERED: PROTAMINE SULFATE 50 MG/5 ML VIAL IV ONE (12:10)
[2017-08-31] MEDS ORDERED: HEPARIN/NACL 0.9% 2 UNITS/ML 3,000 ML IV ONE (13:11)
[2017-08-31] MEDS: ENOXAPARIN 30 MG/0.3 ML SYRINGE SUBCUT SCH (15:51)
[2017-08-31] MEDS: MORPHINE 4 MG/1 ML VIAL IV PRN (20:59)
[2017-08-31] MEDS ORDERED: VANCOMYCIN INJ 1,000 MG in SODIUM CHLORIDE 0.9% 250 ML IV ONE (21:00)
[2017-09-01] MEDS: CEFTAROLINE 400 MG in SODIUM CHLORIDE 0.9% 100 ML IV SCH ×2 (01:50→14:12)
[2017-09-01 06:07] LABS: Basophils % 0.2 % (0.0-0.8); Eosinophils % 0.1 % (0.00-10.9); Hematocrit 29.5 VOL% (42.0-52.0); Hemoglobin 9.9 GM/DL (14.0-18.0); Immature Granulocytes Absolute 0.23 #; Lymphocytes # 0.6 10*3/uL (1.4-4.0); Mean Corpuscular HGB Conc 33.6 GM/DL (32-36); Mean Corpuscular Hemoglobin 32 PG (27-34); Mean Corpuscular Volume 95.5 FL (87-102); Monocytes # 0.7 10*3/uL (0.11-0.8); Monocytes % 6.2 % (1.7-12.7); Neutrophils # 9.9 10*3/uL (1.4-7.4); Neutrophils % 86.5 % (38.7-73.9); Platelet Count 425 T/CUMM (130-400); Red Blood Count 3.09 MC/CUMM (3.8-5.5); Red Cell Distribution Width 14.1 % (9.3-17.3); White Blood Count 11.5 T/CUMM (4-12)
[2017-09-01 06:27] LABS: Calcium 7.1 MG/DL (8.5-10.1); Osmolality,Calculated 289.2 MOS/KG (273-304); Potassium 5.4 MMOL/L (3.5-5.1)
[2017-09-01] MEDS: INSULIN REGULAR 100 UNIT/ML SUBCUT SCH ×4 (08:00→21:39)
[2017-09-01] MEDS: ONDANSETRON 4 MG/2 ML VIAL IV PRN (09:22)
[2017-09-01] MEDS: INSULIN GLARGINE 100 UNIT/ML SUBCUT SCH ×2 (09:23→21:31)
[2017-09-01] MEDS: CALCIUM ACETATE 667 MG CAPSULE PO SCH ×3 (12:20→17:22)
[2017-09-01] MEDS: ASPIRIN EC 81 MG TABLET PO SCH (12:20)
[2017-09-01] MEDS: diphenhydrAMINE CAP 25 MG CAPSULE PO SCH ×3 (12:20→21:30)
[2017-09-01] MEDS: METOPROLOL TARTRATE 25 MG TABLET PO SCH ×2 (12:20→21:30)
[2017-09-01] MEDS: SODIUM HYPOCHLORITE 0.25% IRRIG 473 ML BOTTLE TOP SCH (12:20)
[2017-09-01] MEDS: PANTOPRAZOLE 40 MG TABLET PO SCH (12:21)
[2017-09-01] MEDS: CALCITRIOL 0.25 MCG CAPSULE PO SCH (12:21)
[2017-09-01] MEDS: predniSONE 20 MG TABLET PO SCH ×2 (12:21→21:30)
[2017-09-01] MEDS: ENOXAPARIN 30 MG/0.3 ML SYRINGE SUBCUT SCH (14:13)
[2017-09-01 15:51] LABS: Risk Ratio 2.75; VLDL CHOLESTEROL 19.4 MG/DL
[2017-09-01] MEDS: MORPHINE 4 MG/1 ML VIAL IV PRN ×2 (17:21→21:32)
[2017-09-02] MEDS: CEFTAROLINE 400 MG in SODIUM CHLORIDE 0.9% 100 ML IV SCH ×2 (00:38→13:04)
[2017-09-02 05:17] LABS: Basophils % 0.1 % (0.0-0.8); Eosinophils % 0.1 % (0.00-10.9); Hematocrit 28.2 VOL% (42.0-52.0); Hemoglobin 9.5 GM/DL (14.0-18.0); Immature Granulocytes % 1.2 %; Immature Granulocytes Absolute 0.14 #; Lymphocytes # 0.7 10*3/uL (1.4-4.0); Lymphocytes % 5.8 % (21.2-54.2); Mean Corpuscular HGB Conc 33.7 GM/DL (32-36); Mean Corpuscular Hemoglobin 32 PG (27-34); Mean Corpuscular Volume 94.9 FL (87-102); Mean Platelet Volume 10.1 FL (9.6-12.0); Monocytes # 0.9 10*3/uL (0.11-0.8); Monocytes % 7.7 % (1.7-12.7); Neutrophils % 85.1 % (38.7-73.9); Platelet Count 415 T/CUMM (130-400); Red Blood Count 2.97 MC/CUMM (3.8-5.5); White Blood Count 11.7 T/CUMM (4-12)
[2017-09-02 05:59] LABS: Calcium 7.2 MG/DL (8.5-10.1); Osmolality,Calculated 295.4 MOS/KG (273-304); Potassium 5.7 MMOL/L (3.5-5.1)
[2017-09-02] MEDS: INSULIN REGULAR 100 UNIT/ML SUBCUT SCH ×4 (08:07→21:52)
[2017-09-02] MEDS: CALCIUM ACETATE 667 MG CAPSULE PO SCH ×3 (08:10→16:58)
[2017-09-02] MEDS: SODIUM CHLORIDE 0.9% 250 ML IV SCH ×2 (08:10→21:52)
[2017-09-02] MEDS: diphenhydrAMINE CAP 25 MG CAPSULE PO SCH ×3 (08:10→21:35)
[2017-09-02] MEDS: INSULIN GLARGINE 100 UNIT/ML SUBCUT SCH ×2 (08:11→21:53)
[2017-09-02] MEDS ORDERED: LIDOCAINE 1% 20 ML VIAL ONE (09:41)
[2017-09-02] MEDS: PANTOPRAZOLE 40 MG TABLET PO SCH (13:04)
[2017-09-02] MEDS: METOPROLOL TARTRATE 25 MG TABLET PO SCH ×2 (13:04→21:35)
[2017-09-02] MEDS: predniSONE 20 MG TABLET PO SCH ×2 (13:04→21:35)
[2017-09-02] MEDS: SODIUM HYPOCHLORITE 0.25% IRRIG 473 ML BOTTLE TOP SCH (13:04)
[2017-09-02] MEDS: CALCITRIOL 0.25 MCG CAPSULE PO SCH (13:05)
[2017-09-02] MEDS: ASPIRIN EC 81 MG TABLET PO SCH (13:05)
[2017-09-02] MEDS: ATORVASTATIN 40 MG TABLET PO SCH (13:06)
[2017-09-02] MEDS ORDERED: PROPOFOL 200 MG/20 ML VIAL IV ONE (13:32)
[2017-09-02] MEDS ORDERED: fentaNYL 100 MCG/2 ML VIAL ONE (13:33)
[2017-09-02] MEDS ORDERED: MIDAZOLAM 2 MG/2 ML VIAL ONE (13:34)
[2017-09-02] MEDS: ONDANSETRON 4 MG/2 ML VIAL IV PRN ×2 (14:10→18:26)
[2017-09-02] MEDS: MORPHINE 4 MG/1 ML VIAL IV PRN ×3 (14:11→23:54)
[2017-09-02] MEDS: ENOXAPARIN 30 MG/0.3 ML SYRINGE SUBCUT SCH (14:12)
[2017-09-02] MEDS ORDERED: VANCOMYCIN INJ 1,000 MG in SODIUM CHLORIDE 0.9% 250 ML IV ONE (21:00)
[2017-09-03 05:38] LABS: Basophils % 0.2 % (0.0-0.8); Eosinophils # 0.2 10*3/uL (0.0-0.87); Eosinophils % 1.7 % (0.00-10.9); Hematocrit 29.7 VOL% (42.0-52.0); Hemoglobin 9.6 GM/DL (14.0-18.0); Immature Granulocytes Absolute 0.21 #; Lymphocytes # 0.8 10*3/uL (1.4-4.0); Lymphocytes % 7.8 % (21.2-54.2); Mean Corpuscular HGB Conc 32.3 GM/DL (32-36); Mean Corpuscular Hemoglobin 32 PG (27-34); Mean Corpuscular Volume 97.7 FL (87-102); Mean Platelet Volume 9.9 FL (9.6-12.0); Monocytes # 0.9 10*3/uL (0.11-0.8); Monocytes % 8.6 % (1.7-12.7); Neutrophils # 8.3 10*3/uL (1.4-7.4); Neutrophils % 79.7 % (38.7-73.9); Platelet Count 406 T/CUMM (130-400); Red Blood Count 3.04 MC/CUMM (3.8-5.5); Red Cell Distribution Width 13.9 % (9.3-17.3); White Blood Count 10.4 T/CUMM (4-12)
[2017-09-03 06:11] LABS: Calcium 7.3 MG/DL (8.5-10.1); Osmolality,Calculated 289.1 MOS/KG (273-304); Potassium 4.7 MMOL/L (3.5-5.1)
[2017-09-03] MEDS: ONDANSETRON 4 MG/2 ML VIAL IV PRN ×4 (06:24→20:14)
[2017-09-03] MEDS: INSULIN REGULAR 100 UNIT/ML SUBCUT SCH ×4 (08:02→22:26)
[2017-09-03] MEDS: CALCIUM ACETATE 667 MG CAPSULE PO SCH ×3 (09:26→17:26)
[2017-09-03] MEDS: INSULIN GLARGINE 100 UNIT/ML SUBCUT SCH ×2 (09:26→22:26)
[2017-09-03] MEDS: SODIUM CHLORIDE 0.9% 250 ML IV SCH ×2 (09:26→13:18)
[2017-09-03] MEDS: MORPHINE 4 MG/1 ML VIAL IV PRN (10:27)
[2017-09-03] MEDS: diphenhydrAMINE CAP 25 MG CAPSULE PO SCH ×3 (12:04→22:25)
[2017-09-03] MEDS ORDERED: ONDANSETRON 4 MG/2 ML VIAL ONE ×3 (12:54→16:14)
[2017-09-03] MEDS ORDERED: ONDANSETRON 4 MG/2 ML VIAL IV ONE (13:08)
[2017-09-03] MEDS: predniSONE 20 MG TABLET PO SCH ×2 (13:36→22:26)
[2017-09-03] MEDS: METOPROLOL TARTRATE 25 MG TABLET PO SCH ×2 (13:36→22:26)
[2017-09-03] MEDS: SODIUM HYPOCHLORITE 0.25% IRRIG 473 ML BOTTLE TOP SCH (13:36)
[2017-09-03] MEDS: CEFTAROLINE 400 MG in SODIUM CHLORIDE 0.9% 100 ML IV SCH ×2 (13:37)
[2017-09-03 15:15] LABS: Hematocrit 30.6 VOL% (42.0-52.0); Hemoglobin 9.7 GM/DL (14.0-18.0)
[2017-09-03] MEDS ORDERED: ALBUMIN 5% 12.5 GM/250 ML VIAL IV ONE (15:53)
[2017-09-03] MEDS ORDERED: LIDOCAINE 1% 5 ML VIAL ONE (15:53)
[2017-09-03] MEDS ORDERED: MIDAZOLAM 2 MG/2 ML VIAL ONE (15:53)
[2017-09-03] MEDS ORDERED: PROPOFOL 200 MG/20 ML VIAL IV ONE (15:53)
[2017-09-03] MEDS ORDERED: SODIUM CHLORIDE 0.9% 500 ML IV ONE (15:54)
[2017-09-03] MEDS ORDERED: PHENYLEPHRINE 10 MG/1 ML VIAL IV ONE (15:54)
[2017-09-03] MEDS ORDERED: ETOMIDATE 40 MG/20 ML VIAL IV ONE (15:54)
[2017-09-03] MEDS ORDERED: fentaNYL 100 MCG/2 ML VIAL ONE (15:54)
[2017-09-03] MEDS ORDERED: ROCURONIUM 100 MG/10 ML VIAL IV ONE (15:54)
[2017-09-03] MEDS ORDERED: GLYCOPYRROLATE 0.4 MG/2 ML VIAL ONE (15:54)
[2017-09-03] MEDS ORDERED: KETOROLAC 30 MG/1 ML VIAL ONE (15:54)
[2017-09-03] MEDS ORDERED: NEOSTIGMINE 10 MG/10 ML VIAL ONE (15:54)
[2017-09-03 16:08] LABS: Hematocrit 26.6 VOL% (42.0-52.0); Hemoglobin 8.9 GM/DL (14.0-18.0)
[2017-09-03] MEDS: ENOXAPARIN 30 MG/0.3 ML SYRINGE SUBCUT SCH (16:34)
[2017-09-03] MEDS: PANTOPRAZOLE 40 MG TABLET PO SCH (17:26)
[2017-09-03] MEDS: ASPIRIN EC 81 MG TABLET PO SCH (17:26)
[2017-09-03] MEDS: ATORVASTATIN 40 MG TABLET PO SCH (17:26)
[2017-09-03] MEDS: CALCITRIOL 0.25 MCG CAPSULE PO SCH (17:26)
[2017-09-03 17:58] LABS: Hematocrit 24.6 VOL% (42.0-52.0)
[2017-09-03] MEDS ORDERED: PHENYLEPHRINE DRIP 40 MG/250 ML PREMIX IV PRN (19:41)
[2017-09-03] MEDS ORDERED: NALOXONE 0.4 MG/ML VIAL IV ONE (19:43)
[2017-09-03] MEDS ORDERED: SODIUM CHLORIDE 0.9% 250 ML IV ONE (19:46)
[2017-09-03] MEDS ORDERED: NOREPINEPHRINE 4 MG/4 ML VIAL IV ONE (19:59)
[2017-09-03] MEDS ORDERED: NOREPINEPHRINE 8 MG in SODIUM CHLORIDE 0.9% 242 ML IV PRN (20:02)
[2017-09-03] MEDS ORDERED: NOREPINEPHRINE 16 MG in SODIUM CHLORIDE 0.9% 234 ML IV PRN (20:03)
[2017-09-03 20:23] LABS: ABG Base Excess -7.1 MMOL/L (-2.5-2.5); ABG HCO3 18.6 MMOL/L (20-26); ABG Oxygen Saturation 97.9 % (95-100); ABG PCO2 37.1 MM HG (35-48); ABG PH 7.308 (7.35-7.45); ABG TCO2 17.4 MMOL/L (23-27); Allen Test Positive
[2017-09-04] MEDS: CEFTAROLINE 400 MG in SODIUM CHLORIDE 0.9% 100 ML IV SCH ×2 (00:20→13:50)
[2017-09-04] MEDS: ONDANSETRON 4 MG/2 ML VIAL IV PRN ×3 (04:30→19:56)
[2017-09-04 05:21] LABS: Basophils % 0.1 % (0.0-0.8); Eosinophils # 0.1 10*3/uL (0.0-0.87); Eosinophils % 0.3 % (0.00-10.9); Hematocrit 23.4 VOL% (42.0-52.0); Hemoglobin 7.5 GM/DL (14.0-18.0); Immature Granulocytes % 3.1 %; Immature Granulocytes Absolute 0.55 #; Lymphocytes # 0.8 10*3/uL (1.4-4.0); Lymphocytes % 4.4 % (21.2-54.2); Mean Corpuscular HGB Conc 32.1 GM/DL (32-36); Mean Corpuscular Hemoglobin 32 PG (27-34); Mean Corpuscular Volume 98.7 FL (87-102); Mean Platelet Volume 10.3 FL (9.6-12.0); Monocytes # 1.2 10*3/uL (0.11-0.8); Monocytes % 6.9 % (1.7-12.7); Neutrophils # 15.2 10*3/uL (1.4-7.4); Neutrophils % 85.2 % (38.7-73.9); Platelet Count 356 T/CUMM (130-400); Red Blood Count 2.37 MC/CUMM (3.8-5.5); Red Cell Distribution Width 14.2 % (9.3-17.3); White Blood Count 17.8 T/CUMM (4-12)
[2017-09-04 05:33] LABS: Calcium 6.6 MG/DL (8.5-10.1); Osmolality,Calculated 300.1 MOS/KG (273-304); Potassium 5.7 MMOL/L (3.5-5.1)
[2017-09-04] MEDS: SODIUM CHLORIDE 0.9% 250 ML IV SCH ×2 (06:34→06:35)
[2017-09-04 06:54] LABS: Band Neutrophils 2 % (0-10); Hypochromasia 2+; Lymphocytes 3 % (20-55); Microcytosis 1+; Platelet Estimate Adequate; Segmented Neutrophils 92 % (50-85); Total Cells Counted 100
[2017-09-04] MEDS ORDERED: SODIUM CHLORIDE 0.9% 1,000 ML IV PRN (08:03)
[2017-09-04] MEDS ORDERED: GLUCAGON 1 MG VIAL IM PRN (08:09)
[2017-09-04] MEDS: INSULIN REGULAR 100 UNIT/ML SUBCUT SCH ×5 (10:01→22:24)
[2017-09-04] MEDS: INSULIN GLARGINE 100 UNIT/ML SUBCUT SCH ×2 (10:02→22:25)
[2017-09-04] MEDS: ASPIRIN EC 81 MG TABLET PO SCH (11:21)
[2017-09-04] MEDS: CALCIUM ACETATE 667 MG CAPSULE PO SCH ×3 (11:21→18:04)
[2017-09-04] MEDS: ATORVASTATIN 40 MG TABLET PO SCH (11:21)
[2017-09-04] MEDS: METOPROLOL TARTRATE 25 MG TABLET PO SCH ×2 (11:21→22:23)
[2017-09-04] MEDS: predniSONE 20 MG TABLET PO SCH ×2 (11:23→22:24)
[2017-09-04] MEDS: CALCITRIOL 0.25 MCG CAPSULE PO SCH (11:23)
[2017-09-04] MEDS: PANTOPRAZOLE 40 MG TABLET PO SCH (11:23)
[2017-09-04] MEDS: diphenhydrAMINE CAP 25 MG CAPSULE PO SCH ×3 (11:23→20:00)
[2017-09-04] MEDS ORDERED: CALCIUM GLUCONATE 1,000 MG/10 ML VIAL IV ONE (11:31)
[2017-09-04] MEDS: ENOXAPARIN 30 MG/0.3 ML SYRINGE SUBCUT SCH (13:44)
[2017-09-04] MEDS ORDERED: VANCOMYCIN INJ 1,000 MG in SODIUM CHLORIDE 0.9% 250 ML IV ONE (15:00)
[2017-09-04] MEDS: DEXTROSE 50% 25 GM/50 ML VIAL IV PRN ×3 (15:31→19:37)
[2017-09-04] MEDS: SODIUM HYPOCHLORITE 0.25% IRRIG 473 ML BOTTLE TOP SCH (18:04)
[2017-09-04] MEDS: MORPHINE 4 MG/1 ML VIAL IV PRN (18:11)
[2017-09-04] MEDS ORDERED: HYDROmorphone 2 MG/1 ML VIAL IV PRN (19:29)
[2017-09-04] MEDS ORDERED: MEPERIDINE 50 MG TABLET PO PRN (19:32)
[2017-09-04] MEDS ORDERED: METOPROLOL TARTRATE 5 MG/5 ML VIAL IV PRN (19:48)
[2017-09-04] MEDS ORDERED: PROMETHAZINE 25 MG/1 ML VIAL IM PRN (22:09)
[2017-09-04] MEDS: METOCLOPRAMIDE 10 MG/2 ML VIAL IV PRN (22:21)
[2017-09-04] MEDS: GABAPENTIN 100 MG CAPSULE PO SCH (22:24)
[2017-09-04] MEDS ORDERED: ONDANSETRON 4 MG/2 ML VIAL IV ONE (22:30)
[2017-09-04] MEDS ORDERED: MORPHINE 4 MG/1 ML VIAL IV ONE (22:30)
[2017-09-05] MEDS ORDERED: SODIUM CHLORIDE 0.9% 500 ML IV ONE (00:17)
[2017-09-05] MEDS ORDERED: DILTIAZEM INJ 100 MG in SODIUM CHLORIDE 0.9% 100 ML IV PRN (00:20)
[2017-09-05] MEDS: INSULIN REGULAR 100 UNIT/ML SUBCUT SCH ×6 (00:26→20:03)
[2017-09-05] MEDS: CEFTAROLINE 400 MG in SODIUM CHLORIDE 0.9% 100 ML IV SCH ×2 (01:47→16:34)
[2017-09-05] MEDS: MORPHINE 4 MG/1 ML VIAL IV PRN (05:00)
[2017-09-05] MEDS: ONDANSETRON 4 MG/2 ML VIAL IV PRN ×3 (05:00→20:28)
[2017-09-05 05:32] LABS: Basophils % 0.1 % (0.0-0.8); Eosinophils # 0.1 10*3/uL (0.0-0.87); Eosinophils % 0.8 % (0.00-10.9); Hemoglobin 7.9 GM/DL (14.0-18.0); Immature Granulocytes % 2.6 %; Immature Granulocytes Absolute 0.48 #; Lymphocytes # 0.8 10*3/uL (1.4-4.0); Lymphocytes % 4.3 % (21.2-54.2); Mean Corpuscular HGB Conc 32.9 GM/DL (32-36); Mean Corpuscular Hemoglobin 32 PG (27-34); Mean Corpuscular Volume 96.4 FL (87-102); Mean Platelet Volume 10.3 FL (9.6-12.0); Monocytes # 1.4 10*3/uL (0.11-0.8); Monocytes % 7.6 % (1.7-12.7); Neutrophils # 15.4 10*3/uL (1.4-7.4); Neutrophils % 84.6 % (38.7-73.9); Platelet Count 302 T/CUMM (130-400); Red Blood Count 2.49 MC/CUMM (3.8-5.5); Red Cell Distribution Width 15.3 % (9.3-17.3); White Blood Count 18.2 T/CUMM (4-12)
[2017-09-05 06:15] LABS: Calcium 6.9 MG/DL (8.5-10.1); Osmolality,Calculated 290.7 MOS/KG (273-304); Potassium 4.4 MMOL/L (3.5-5.1)
[2017-09-05 07:36] LABS: Eosinophils 1 % (0-10); Hypochromasia 1+; Lymphocytes 3 % (20-55); Microcytosis Slight; Platelet Estimate Adequate; Segmented Neutrophils 88 % (50-85); Total Cells Counted 100
[2017-09-05] MEDS: CALCIUM ACETATE 667 MG CAPSULE PO SCH ×3 (10:26→16:48)
[2017-09-05] MEDS: diphenhydrAMINE CAP 25 MG CAPSULE PO SCH ×3 (10:27→21:40)
[2017-09-05] MEDS: INSULIN GLARGINE 100 UNIT/ML SUBCUT SCH ×2 (10:28→20:29)
[2017-09-05] MEDS: GABAPENTIN 100 MG CAPSULE PO SCH ×3 (10:32→20:28)
[2017-09-05] MEDS: METOPROLOL TARTRATE 25 MG TABLET PO SCH ×2 (10:32→10:57)
[2017-09-05] MEDS: predniSONE 20 MG TABLET PO SCH ×2 (10:33→20:28)
[2017-09-05] MEDS: CALCITRIOL 0.25 MCG CAPSULE PO SCH (10:33)
[2017-09-05] MEDS: PANTOPRAZOLE 40 MG TABLET PO SCH (10:41)
[2017-09-05] MEDS: ATORVASTATIN 40 MG TABLET PO SCH (10:51)
[2017-09-05] MEDS: ASPIRIN EC 81 MG TABLET PO SCH (10:53)
[2017-09-05] MEDS: SODIUM HYPOCHLORITE 0.25% IRRIG 473 ML BOTTLE TOP SCH (11:03)
[2017-09-05] MEDS: MORPHINE 10 MG/1 ML VIAL IV PRN ×2 (12:18→21:40)
[2017-09-05] MEDS: METOCLOPRAMIDE 10 MG/2 ML VIAL IV PRN (12:42)
[2017-09-05] MEDS: COLLAGENASE OINT 30 GM TUBE TOP SCH (12:47)
[2017-09-05] MEDS ORDERED: MORPHINE 10 MG/1 ML VIAL IV SCH (14:00)
[2017-09-05] MEDS: ENOXAPARIN 30 MG/0.3 ML SYRINGE SUBCUT SCH (14:58)
[2017-09-05] MEDS: METOPROLOL SUCCINATE XL 25 MG TABLET PO SCH ×2 (14:58→20:28)
[2017-09-06] MEDS: INSULIN REGULAR 100 UNIT/ML SUBCUT SCH ×5 (00:35→21:12)
[2017-09-06] MEDS: CEFTAROLINE 400 MG in SODIUM CHLORIDE 0.9% 100 ML IV SCH ×3 (00:37→15:41)
[2017-09-06 05:35] LABS: Basophils % 0.1 % (0.0-0.8); Eosinophils # 0.2 10*3/uL (0.0-0.87); Eosinophils % 1.4 % (0.00-10.9); Hematocrit 23.2 VOL% (42.0-52.0); Hemoglobin 7.8 GM/DL (14.0-18.0); Immature Granulocytes Absolute 0.31 #; Lymphocytes # 0.8 10*3/uL (1.4-4.0); Lymphocytes % 5.2 % (21.2-54.2); Mean Corpuscular HGB Conc 33.6 GM/DL (32-36); Mean Corpuscular Hemoglobin 32 PG (27-34); Mean Corpuscular Volume 95.5 FL (87-102); Mean Platelet Volume 10.5 FL (9.6-12.0); Monocytes # 1.4 10*3/uL (0.11-0.8); Monocytes % 9.1 % (1.7-12.7); Neutrophils # 12.9 10*3/uL (1.4-7.4); Neutrophils % 82.2 % (38.7-73.9); Platelet Count 318 T/CUMM (130-400); Red Blood Count 2.43 MC/CUMM (3.8-5.5); Red Cell Distribution Width 15.6 % (9.3-17.3); White Blood Count 15.6 T/CUMM (4-12)
[2017-09-06 06:05] LABS: Calcium 7.4 MG/DL (8.5-10.1); Osmolality,Calculated 290.8 MOS/KG (273-304); Potassium 4.4 MMOL/L (3.5-5.1)
[2017-09-06 06:17] LABS: Albumin 1.7 G/DL (3.4-5.0); Bilirubin,Total 0.7 MG/DL (0.2-1.0); Calcium 7.3 MG/DL (8.5-10.1); Osmolality,Calculated 293.5 MOS/KG (273-304); Potassium 4.7 MMOL/L (3.5-5.1); Thyroid Stimulating Hormone 2.1 uIU/ml (0.358-3.74); Total Protein 6.1 G/DL (6.4-8.3)
[2017-09-06] MEDS: ASPIRIN EC 81 MG TABLET PO SCH (09:12)
[2017-09-06] MEDS: CALCITRIOL 0.25 MCG CAPSULE PO SCH (09:12)
[2017-09-06] MEDS: METOPROLOL SUCCINATE XL 25 MG TABLET PO SCH ×2 (09:12→21:12)
[2017-09-06] MEDS: GABAPENTIN 100 MG CAPSULE PO SCH ×3 (09:12→21:11)
[2017-09-06] MEDS: CALCIUM ACETATE 667 MG CAPSULE PO SCH ×3 (09:13→17:30)
[2017-09-06] MEDS: predniSONE 20 MG TABLET PO SCH (09:13)
[2017-09-06] MEDS: INSULIN GLARGINE 100 UNIT/ML SUBCUT SCH ×2 (09:14→21:12)
[2017-09-06] MEDS: PANTOPRAZOLE 40 MG TABLET PO SCH (09:19)
[2017-09-06] MEDS: COLLAGENASE OINT 30 GM TUBE TOP SCH (09:19)
[2017-09-06] MEDS: ROSUVASTATIN 20 MG TABLET PO SCH ×2 (09:19→21:11)
[2017-09-06] MEDS: diphenhydrAMINE CAP 25 MG CAPSULE PO SCH ×3 (09:20→21:12)
[2017-09-06] MEDS: MORPHINE 10 MG/1 ML VIAL IV PRN (09:43)
[2017-09-06] MEDS: SODIUM HYPOCHLORITE 0.25% IRRIG 473 ML BOTTLE TOP SCH (11:59)
[2017-09-06] MEDS: ENOXAPARIN 30 MG/0.3 ML SYRINGE SUBCUT SCH (14:45)
[2017-09-07] MEDS: CEFTAROLINE 400 MG in SODIUM CHLORIDE 0.9% 100 ML IV SCH ×2 (03:11→14:06)
[2017-09-07] MEDS: COLLAGENASE OINT 30 GM TUBE TOP SCH (09:30)
[2017-09-07] MEDS: INSULIN REGULAR 100 UNIT/ML SUBCUT SCH ×4 (10:52→21:23)
[2017-09-07] MEDS: CALCIUM ACETATE 667 MG CAPSULE PO SCH ×3 (10:53→16:40)
[2017-09-07] MEDS: INSULIN GLARGINE 100 UNIT/ML SUBCUT SCH ×2 (10:53→21:22)
[2017-09-07] MEDS: SODIUM HYPOCHLORITE 0.25% IRRIG 473 ML BOTTLE TOP SCH (10:53)
[2017-09-07] MEDS: ASPIRIN EC 81 MG TABLET PO SCH (10:53)
[2017-09-07] MEDS: diphenhydrAMINE CAP 25 MG CAPSULE PO SCH ×3 (10:53→21:24)
[2017-09-07] MEDS: GABAPENTIN 100 MG CAPSULE PO SCH ×3 (10:54→21:23)
[2017-09-07] MEDS: METOPROLOL SUCCINATE XL 25 MG TABLET PO SCH ×2 (10:54→21:24)
[2017-09-07] MEDS: predniSONE 20 MG TABLET PO SCH (10:54)
[2017-09-07] MEDS: SILVER SULFADIAZINE 1% CREAM 25 GM TUBE TOP SCH (10:54)
[2017-09-07] MEDS: CALCITRIOL 0.25 MCG CAPSULE PO SCH (10:54)
[2017-09-07] MEDS: PANTOPRAZOLE 40 MG TABLET PO SCH (10:54)
[2017-09-07] MEDS: ENOXAPARIN 30 MG/0.3 ML SYRINGE SUBCUT SCH (14:05)
[2017-09-07] MEDS ORDERED: VANCOMYCIN INJ 1,000 MG in SODIUM CHLORIDE 0.9% 250 ML IV ONE (21:00)
[2017-09-07] MEDS: ZINC OXIDE PASTE 113 GM TUBE TOP SCH (21:23)
[2017-09-07] MEDS: ROSUVASTATIN 20 MG TABLET PO SCH (21:24)
[2017-09-08] MEDS: CEFTAROLINE 400 MG in SODIUM CHLORIDE 0.9% 100 ML IV SCH ×4 (03:28→23:42)
[2017-09-08 05:38] LABS: Calcium 7.4 MG/DL (8.5-10.1); Osmolality,Calculated 287.5 MOS/KG (273-304); Potassium 4.9 MMOL/L (3.5-5.1)
[2017-09-08 06:53] LABS: Basophils % 0.1 % (0.0-0.8); Eosinophils # 0.1 10*3/uL (0.0-0.87); Eosinophils % 1.3 % (0.00-10.9); Hematocrit 24.9 VOL% (42.0-52.0); Immature Granulocytes % 1.8 %; Immature Granulocytes Absolute 0.18 #; Lymphocytes # 0.9 10*3/uL (1.4-4.0); Lymphocytes % 8.6 % (21.2-54.2); Mean Corpuscular HGB Conc 32.1 GM/DL (32-36); Mean Corpuscular Hemoglobin 32 PG (27-34); Mean Corpuscular Volume 98.8 FL (87-102); Mean Platelet Volume 10.4 FL (9.6-12.0); Monocytes # 1.1 10*3/uL (0.11-0.8); Monocytes % 10.7 % (1.7-12.7); Neutrophils # 7.8 10*3/uL (1.4-7.4); Neutrophils % 77.5 % (38.7-73.9); Platelet Count 299 T/CUMM (130-400); Red Blood Count 2.52 MC/CUMM (3.8-5.5); Red Cell Distribution Width 15.8 % (9.3-17.3); White Blood Count 10.1 T/CUMM (4-12)
[2017-09-08] MEDS: INSULIN REGULAR 100 UNIT/ML SUBCUT SCH ×4 (07:30→21:43)
[2017-09-08] MEDS: CALCIUM ACETATE 667 MG CAPSULE PO SCH ×3 (08:30→17:10)
[2017-09-08] MEDS: CALCITRIOL 0.25 MCG CAPSULE PO SCH (08:30)
[2017-09-08] MEDS: diphenhydrAMINE CAP 25 MG CAPSULE PO SCH ×3 (08:30→22:27)
[2017-09-08] MEDS: predniSONE 20 MG TABLET PO SCH (08:30)
[2017-09-08] MEDS: METOPROLOL SUCCINATE XL 25 MG TABLET PO SCH ×2 (08:30→22:27)
[2017-09-08] MEDS: GABAPENTIN 100 MG CAPSULE PO SCH ×3 (08:30→22:27)
[2017-09-08] MEDS: INSULIN GLARGINE 100 UNIT/ML SUBCUT SCH ×2 (08:30→22:26)
[2017-09-08] MEDS: PANTOPRAZOLE 40 MG TABLET PO SCH (08:30)
[2017-09-08] MEDS: ASPIRIN EC 81 MG TABLET PO SCH (08:30)
[2017-09-08] MEDS: ENOXAPARIN 30 MG/0.3 ML SYRINGE SUBCUT SCH (13:10)
[2017-09-08] MEDS: ZINC OXIDE PASTE 113 GM TUBE TOP SCH ×2 (17:10→22:32)
[2017-09-08] MEDS: SODIUM HYPOCHLORITE 0.25% IRRIG 473 ML BOTTLE TOP SCH (17:10)
[2017-09-08] MEDS: SILVER SULFADIAZINE 1% CREAM 25 GM TUBE TOP SCH (17:10)
[2017-09-08] MEDS: COLLAGENASE OINT 30 GM TUBE TOP SCH (17:10)
[2017-09-08] MEDS: oxyCODONE/ACETAMINOPHEN 5-325 MG TABLET PO PRN (17:10)
[2017-09-08] MEDS: ROSUVASTATIN 20 MG TABLET PO SCH (22:27)
[2017-09-09] MEDS: CEFTAROLINE 400 MG in SODIUM CHLORIDE 0.9% 100 ML IV SCH ×2 (03:10→18:32)
[2017-09-09] MEDS: ZINC OXIDE PASTE 113 GM TUBE TOP SCH ×2 (09:00→20:31)
[2017-09-09] MEDS: INSULIN REGULAR 100 UNIT/ML SUBCUT SCH ×4 (09:07→20:30)
[2017-09-09] MEDS: CALCITRIOL 0.25 MCG CAPSULE PO SCH (11:05)
[2017-09-09] MEDS: PANTOPRAZOLE 40 MG TABLET PO SCH (11:06)
[2017-09-09] MEDS: CALCIUM ACETATE 667 MG CAPSULE PO SCH ×3 (11:06→17:00)
[2017-09-09] MEDS: METOPROLOL SUCCINATE XL 25 MG TABLET PO SCH ×2 (11:07→20:32)
[2017-09-09] MEDS: GABAPENTIN 100 MG CAPSULE PO SCH ×3 (11:07→20:30)
[2017-09-09] MEDS: predniSONE 20 MG TABLET PO SCH (11:07)
[2017-09-09] MEDS: INSULIN GLARGINE 100 UNIT/ML SUBCUT SCH ×2 (11:08→21:30)
[2017-09-09] MEDS: ASPIRIN EC 81 MG TABLET PO SCH (11:08)
[2017-09-09] MEDS: diphenhydrAMINE CAP 25 MG CAPSULE PO SCH ×3 (11:08→20:30)
[2017-09-09] MEDS: SILVER SULFADIAZINE 1% CREAM 25 GM TUBE TOP SCH (12:10)
[2017-09-09] MEDS: COLLAGENASE OINT 30 GM TUBE TOP SCH (13:31)
[2017-09-09] MEDS: SODIUM HYPOCHLORITE 0.25% IRRIG 473 ML BOTTLE TOP SCH (13:32)
[2017-09-09] MEDS: ENOXAPARIN 30 MG/0.3 ML SYRINGE SUBCUT SCH (14:00)
[2017-09-09] MEDS: ROSUVASTATIN 20 MG TABLET PO SCH (20:30)
[2017-09-09] MEDS ORDERED: VANCOMYCIN INJ 1,000 MG in SODIUM CHLORIDE 0.9% 250 ML IV ONE (21:00)
[2017-09-10] MEDS: CEFTAROLINE 400 MG in SODIUM CHLORIDE 0.9% 100 ML IV SCH (07:42)
[2017-09-10] MEDS: INSULIN REGULAR 100 UNIT/ML SUBCUT SCH ×2 (09:07→13:13)
[2017-09-10] MEDS ORDERED: MICAFUNGIN 100 MG in SODIUM CHLORIDE 0.9% 100 ML IV SCH (10:00)
[2017-09-10] MEDS ORDERED: FLUCONAZOLE INJ 200 MG in PREMIX 1 EACH IV SCH (10:00)
[2017-09-10] MEDS: diphenhydrAMINE CAP 25 MG CAPSULE PO SCH (10:14)
[2017-09-10] MEDS: GABAPENTIN 100 MG CAPSULE PO SCH (10:14)
[2017-09-10] MEDS: ASPIRIN EC 81 MG TABLET PO SCH (10:15)
[2017-09-10] MEDS: INSULIN GLARGINE 100 UNIT/ML SUBCUT SCH (10:15)
[2017-09-10] MEDS: CALCITRIOL 0.25 MCG CAPSULE PO SCH (10:15)
[2017-09-10] MEDS: PANTOPRAZOLE 40 MG TABLET PO SCH (10:15)
[2017-09-10] MEDS: ZINC OXIDE PASTE 113 GM TUBE TOP SCH (10:15)
[2017-09-10] MEDS: CALCIUM ACETATE 667 MG CAPSULE PO SCH ×2 (10:15→13:14)
[2017-09-10] MEDS: predniSONE 20 MG TABLET PO SCH (10:15)
[2017-09-10] MEDS: METOPROLOL SUCCINATE XL 25 MG TABLET PO SCH (10:15)
[2017-09-10] MEDS: oxyCODONE/ACETAMINOPHEN 5-325 MG TABLET PO PRN (10:16)
[2017-09-10 12:00] VITALS: BP 111/43
[2017-09-10] MEDS: ENOXAPARIN 30 MG/0.3 ML SYRINGE SUBCUT SCH (13:10)
[2017-09-10] MEDS: SILVER SULFADIAZINE 1% CREAM 25 GM TUBE TOP SCH (15:02)
[2017-09-10] MEDS: SODIUM HYPOCHLORITE 0.25% IRRIG 473 ML BOTTLE TOP SCH (15:17)
[2017-09-10] MEDS: COLLAGENASE OINT 30 GM TUBE TOP SCH (15:17)
== END 2017-09-10 15:50 | DRG 239 ==
LOC: N.ED 10:53 → SUATTDRO 14:13 → N.EDINP 14:13 → N.3E 14:59 → N.TELEN 23:33 → N.CC 09-03 17:26 → N.3E 09-06 20:40

== ENCOUNTER 2017-09-22 16:42 | Inpatient (IN) ==
[2017-09-23 05:55] LABS: Basophils % 0.3 % (0.0-0.8); Eosinophils # 0.2 10*3/uL (0.0-0.87); Eosinophils % 2.2 % (0.00-10.9); Hematocrit 19.2 VOL% (42.0-52.0); Immature Granulocytes % 0.5 %; Immature Granulocytes Absolute 0.04 #; Lymphocytes # 1.2 10*3/uL (1.4-4.0); Lymphocytes % 15.5 % (21.2-54.2); Mean Corpuscular HGB Conc 32.3 GM/DL (32-36); Mean Corpuscular Hemoglobin 31 PG (27-34); Mean Corpuscular Volume 94.6 FL (87-102); Mean Platelet Volume 10.8 FL (9.6-12.0); Monocytes # 0.7 10*3/uL (0.11-0.8); Monocytes % 8.9 % (1.7-12.7); Neutrophils # 5.7 10*3/uL (1.4-7.4); Neutrophils % 72.6 % (38.7-73.9); Platelet Count 238 T/CUMM (130-400); Red Blood Count 2.03 MC/CUMM (3.8-5.5); Red Cell Distribution Width 14.5 % (9.3-17.3); White Blood Count 7.8 T/CUMM (4-12)
[2017-09-23 06:07] LABS: Calcium 7.8 MG/DL (8.5-10.1); Osmolality,Calculated 296.5 MOS/KG (273-304)
[2017-09-23 16:45] LABS: Hematocrit 23.4 VOL% (42.0-52.0); Hemoglobin 7.4 GM/DL (14.0-18.0)
[2017-09-23 17:31] LABS: Basophils # 0.1 10*3/uL (0.0-0.2); Basophils % 0.6 % (0.0-0.8); Eosinophils # 0.2 10*3/uL (0.0-0.87); Eosinophils % 1.9 % (0.00-10.9); Hematocrit 23.7 VOL% (42.0-52.0); Hemoglobin 7.4 GM/DL (14.0-18.0); Immature Granulocytes % 0.9 %; Immature Granulocytes Absolute 0.07 #; Lymphocytes % 12.6 % (21.2-54.2); Mean Corpuscular HGB Conc 31.2 GM/DL (32-36); Mean Corpuscular Hemoglobin 29 PG (27-34); Mean Corpuscular Volume 92.6 FL (87-102); Mean Platelet Volume 10.9 FL (9.6-12.0); Monocytes # 0.7 10*3/uL (0.11-0.8); Monocytes % 9.1 % (1.7-12.7); Neutrophils % 74.9 % (38.7-73.9); Platelet Count 190 T/CUMM (130-400); Red Blood Count 2.56 MC/CUMM (3.8-5.5); Red Cell Distribution Width 16.4 % (9.3-17.3)
[2017-09-23 18:12] LABS: Basophils # 0.1 10*3/uL (0.0-0.2); Basophils % 0.7 % (0.0-0.8); Eosinophils # 0.1 10*3/uL (0.0-0.87); Eosinophils % 1.4 % (0.00-10.9); Hematocrit 23.1 VOL% (42.0-52.0); Hemoglobin 7.4 GM/DL (14.0-18.0); Immature Granulocytes % 0.7 %; Immature Granulocytes Absolute 0.06 #; Lymphocytes % 11.6 % (21.2-54.2); Mean Corpuscular Hemoglobin 30 PG (27-34); Mean Corpuscular Volume 92.4 FL (87-102); Mean Platelet Volume 10.2 FL (9.6-12.0); Monocytes # 0.6 10*3/uL (0.11-0.8); Monocytes % 7.2 % (1.7-12.7); Neutrophils # 6.8 10*3/uL (1.4-7.4); Neutrophils % 78.4 % (38.7-73.9); Platelet Count 194 T/CUMM (130-400); Red Cell Distribution Width 16.6 % (9.3-17.3); White Blood Count 8.7 T/CUMM (4-12)
[2017-09-23 23:45] LABS: Basophils # 0.1 10*3/uL (0.0-0.2); Basophils % 0.6 % (0.0-0.8); Eosinophils # 0.1 10*3/uL (0.0-0.87); Eosinophils % 0.8 % (0.00-10.9); Hematocrit 27.6 VOL% (42.0-52.0); Hemoglobin 8.9 GM/DL (14.0-18.0); Immature Granulocytes % 0.8 %; Immature Granulocytes Absolute 0.09 #; Lymphocytes # 0.7 10*3/uL (1.4-4.0); Lymphocytes % 6.3 % (21.2-54.2); Mean Corpuscular HGB Conc 32.2 GM/DL (32-36); Mean Corpuscular Hemoglobin 29 PG (27-34); Mean Corpuscular Volume 89.6 FL (87-102); Mean Platelet Volume 10.8 FL (9.6-12.0); Monocytes # 0.8 10*3/uL (0.11-0.8); Monocytes % 7.6 % (1.7-12.7); Neutrophils # 8.9 10*3/uL (1.4-7.4); Neutrophils % 83.9 % (38.7-73.9); Platelet Count 170 T/CUMM (130-400); Red Blood Count 3.08 MC/CUMM (3.8-5.5); Red Cell Distribution Width 16.2 % (9.3-17.3); White Blood Count 10.6 T/CUMM (4-12)
[2017-09-24 06:00] LABS: Basophils # 0.1 10*3/uL (0.0-0.2); Basophils % 0.5 % (0.0-0.8); Eosinophils # 0.3 10*3/uL (0.0-0.87); Eosinophils % 2.4 % (0.00-10.9); Hematocrit 36.9 VOL% (42.0-52.0); Hemoglobin 12.2 GM/DL (14.0-18.0); Immature Granulocytes % 0.8 %; Lymphocytes # 1.7 10*3/uL (1.4-4.0); Lymphocytes % 12.9 % (21.2-54.2); Mean Corpuscular HGB Conc 33.1 GM/DL (32-36); Mean Corpuscular Hemoglobin 29 PG (27-34); Mean Corpuscular Volume 87.2 FL (87-102); Mean Platelet Volume 10.6 FL (9.6-12.0); Monocytes # 1.5 10*3/uL (0.11-0.8); Monocytes % 11.5 % (1.7-12.7); NRBC # 0.02 10*3/uL; Neutrophils # 9.6 10*3/uL (1.4-7.4); Neutrophils % 71.9 % (38.7-73.9); Platelet Count 190 T/CUMM (130-400); Red Blood Count 4.23 MC/CUMM (3.8-5.5); Red Cell Distribution Width 15.9 % (9.3-17.3); White Blood Count 13.3 T/CUMM (4-12)
[2017-09-24 06:20] LABS: Calcium 7.6 MG/DL (8.5-10.1); Osmolality,Calculated 299.4 MOS/KG (273-304); Potassium 4.1 MMOL/L (3.5-5.1)
[2017-09-24 15:06] LABS: Hematocrit 33.1 VOL% (42.0-52.0); Hemoglobin 11.2 GM/DL (14.0-18.0)
[2017-09-25 03:58] LABS: Basophils # 0.1 10*3/uL (0.0-0.2); Basophils % 0.6 % (0.0-0.8); Eosinophils # 0.2 10*3/uL (0.0-0.87); Eosinophils % 2.6 % (0.00-10.9); Hematocrit 32.6 VOL% (42.0-52.0); Hemoglobin 10.7 GM/DL (14.0-18.0); Immature Granulocytes % 1.3 %; Immature Granulocytes Absolute 0.11 #; Lymphocytes # 0.9 10*3/uL (1.4-4.0); Lymphocytes % 10.6 % (21.2-54.2); Mean Corpuscular HGB Conc 32.8 GM/DL (32-36); Mean Corpuscular Hemoglobin 29 PG (27-34); Mean Corpuscular Volume 88.8 FL (87-102); Mean Platelet Volume 10.5 FL (9.6-12.0); Monocytes # 0.8 10*3/uL (0.11-0.8); Monocytes % 9.4 % (1.7-12.7); Neutrophils # 6.6 10*3/uL (1.4-7.4); Neutrophils % 75.5 % (38.7-73.9); Platelet Count 154 T/CUMM (130-400); Red Blood Count 3.67 MC/CUMM (3.8-5.5); Red Cell Distribution Width 16.3 % (9.3-17.3); White Blood Count 8.8 T/CUMM (4-12)
[2017-09-25 04:20] LABS: Albumin 1.5 G/DL (3.4-5.0); Bilirubin,Total 0.4 MG/DL (0.2-1.0); Calcium 7.3 MG/DL (8.5-10.1); Osmolality,Calculated 307.3 MOS/KG (273-304); Potassium 4.8 MMOL/L (3.5-5.1); Total Protein 5.2 G/DL (6.4-8.3)
[2017-09-26 05:15] LABS: Basophils # 0.1 10*3/uL (0.0-0.2); Basophils % 0.7 % (0.0-0.8); Eosinophils # 0.4 10*3/uL (0.0-0.87); Eosinophils % 5.1 % (0.00-10.9); Hematocrit 32.8 VOL% (42.0-52.0); Hemoglobin 10.7 GM/DL (14.0-18.0); Immature Granulocytes % 0.7 %; Immature Granulocytes Absolute 0.06 #; Lymphocytes # 1.1 10*3/uL (1.4-4.0); Lymphocytes % 12.5 % (21.2-54.2); Mean Corpuscular HGB Conc 32.6 GM/DL (32-36); Mean Corpuscular Hemoglobin 29 PG (27-34); Mean Corpuscular Volume 88.2 FL (87-102); Mean Platelet Volume 10.7 FL (9.6-12.0); Monocytes # 0.7 10*3/uL (0.11-0.8); Monocytes % 8.1 % (1.7-12.7); Neutrophils # 6.2 10*3/uL (1.4-7.4); Neutrophils % 72.9 % (38.7-73.9); Platelet Count 182 T/CUMM (130-400); Red Blood Count 3.72 MC/CUMM (3.8-5.5); Red Cell Distribution Width 16.5 % (9.3-17.3); White Blood Count 8.5 T/CUMM (4-12)
[2017-09-26 19:55] LABS: Hematocrit 32.9 VOL% (42.0-52.0); Hemoglobin 10.4 GM/DL (14.0-18.0)
[2017-09-26 19:59] LABS: Basophils % 0.3 % (0.0-0.8); Eosinophils % 0.3 % (0.00-10.9); Immature Granulocytes Absolute 0.09 #; Lymphocytes # 0.3 10*3/uL (1.4-4.0); Lymphocytes % 3.1 % (21.2-54.2); Mean Corpuscular HGB Conc 32.1 GM/DL (32-36); Mean Corpuscular Hemoglobin 29 PG (27-34); Mean Corpuscular Volume 91.3 FL (87-102); Mean Platelet Volume 10.6 FL (9.6-12.0); Monocytes # 0.5 10*3/uL (0.11-0.8); Monocytes % 5.2 % (1.7-12.7); Neutrophils # 7.9 10*3/uL (1.4-7.4); Neutrophils % 90.1 % (38.7-73.9); Platelet Count 178 T/CUMM (130-400); Red Blood Count 3.58 MC/CUMM (3.8-5.5); Red Cell Distribution Width 16.2 % (9.3-17.3); White Blood Count 8.8 T/CUMM (4-12)
[2017-09-26 20:12] LABS: Albumin 1.5 G/DL (3.4-5.0); Bilirubin,Total 0.5 MG/DL (0.2-1.0); Calcium 7.8 MG/DL (8.5-10.1); Osmolality,Calculated 290.4 MOS/KG (273-304); Potassium 4.3 MMOL/L (3.5-5.1); Total Protein 5.9 G/DL (6.4-8.3)
[2017-09-26 20:22] LABS: Basophils % 0.3 % (0.0-0.8); Eosinophils % 0.2 % (0.00-10.9); Hematocrit 31.1 VOL% (42.0-52.0); Immature Granulocytes % 1.1 %; Lymphocytes # 0.4 10*3/uL (1.4-4.0); Lymphocytes % 4.4 % (21.2-54.2); Mean Corpuscular HGB Conc 32.2 GM/DL (32-36); Mean Corpuscular Hemoglobin 29 PG (27-34); Mean Corpuscular Volume 90.9 FL (87-102); Mean Platelet Volume 10.3 FL (9.6-12.0); Monocytes # 0.6 10*3/uL (0.11-0.8); Monocytes % 6.4 % (1.7-12.7); Neutrophils # 7.9 10*3/uL (1.4-7.4); Neutrophils % 87.6 % (38.7-73.9); Platelet Count 174 T/CUMM (130-400); Red Blood Count 3.42 MC/CUMM (3.8-5.5); Red Cell Distribution Width 16.3 % (9.3-17.3); White Blood Count 9.1 T/CUMM (4-12)
[2017-09-26 20:35] LABS: Anisocytosis 1+; Lymphocytes 2 % (20-55); Poikilocytosis 1+; Segmented Neutrophils 95 % (50-85); Total Cells Counted 100
[2017-09-26 20:36] LABS: Acanthocytes 2+; Platelet Estimate Adequate; Polychromasia Few
[2017-09-26 20:37] LABS: Anisocytosis 1+; Lymphocytes 5 % (20-55); Poikilocytosis 1+; Segmented Neutrophils 93 % (50-85); Total Cells Counted 100
[2017-09-26 20:38] LABS: Acanthocytes 1+; Ovalocytes Few; Platelet Estimate Adequate; Polychromasia Slight
[2017-09-26 20:43] LABS: Troponin I Only 0.034 NG/ML (0.00-0.045)
[2017-09-28 04:49] LABS: Basophils % 0.5 % (0.0-0.8); Eosinophils # 0.4 10*3/uL (0.0-0.87); Eosinophils % 4.8 % (0.00-10.9); Hematocrit 28.4 VOL% (42.0-52.0); Hemoglobin 8.9 GM/DL (14.0-18.0); Immature Granulocytes % 0.6 %; Immature Granulocytes Absolute 0.05 #; Lymphocytes % 13.4 % (21.2-54.2); Mean Corpuscular HGB Conc 31.3 GM/DL (32-36); Mean Corpuscular Hemoglobin 29 PG (27-34); Mean Corpuscular Volume 91.6 FL (87-102); Monocytes # 0.6 10*3/uL (0.11-0.8); Monocytes % 7.8 % (1.7-12.7); Neutrophils # 5.6 10*3/uL (1.4-7.4); Neutrophils % 72.9 % (38.7-73.9); Platelet Count 177 T/CUMM (130-400); Red Cell Distribution Width 16.5 % (9.3-17.3); White Blood Count 7.7 T/CUMM (4-12)
[2017-09-28 05:04] LABS: Calcium 8.1 MG/DL (8.5-10.1); Osmolality,Calculated 301.3 MOS/KG (273-304); Potassium 4.5 MMOL/L (3.5-5.1)
[2017-09-29 04:38] LABS: Basophils % 0.5 % (0.0-0.8); Eosinophils # 0.3 10*3/uL (0.0-0.87); Eosinophils % 4.3 % (0.00-10.9); Hematocrit 28.8 VOL% (42.0-52.0); Hemoglobin 8.9 GM/DL (14.0-18.0); Immature Granulocytes % 0.9 %; Immature Granulocytes Absolute 0.07 #; Lymphocytes # 0.8 10*3/uL (1.4-4.0); Lymphocytes % 10.9 % (21.2-54.2); Mean Corpuscular HGB Conc 30.9 GM/DL (32-36); Mean Corpuscular Hemoglobin 29 PG (27-34); Mean Corpuscular Volume 93.8 FL (87-102); Mean Platelet Volume 10.3 FL (9.6-12.0); Monocytes # 0.7 10*3/uL (0.11-0.8); Monocytes % 8.5 % (1.7-12.7); Neutrophils # 5.8 10*3/uL (1.4-7.4); Neutrophils % 74.9 % (38.7-73.9); Platelet Count 169 T/CUMM (130-400); Red Blood Count 3.07 MC/CUMM (3.8-5.5); Red Cell Distribution Width 16.8 % (9.3-17.3); White Blood Count 7.7 T/CUMM (4-12)
[2017-09-29 05:23] LABS: Albumin 1.7 G/DL (3.4-5.0); Bilirubin,Direct 0.24 MG/DL (0.0-0.20); Bilirubin,Indirect 1.1 MG/DL (0.0-1.0); Bilirubin,Total 1.3 MG/DL (0.2-1.0); Calcium 8.2 MG/DL (8.5-10.1); Osmolality,Calculated 305.3 MOS/KG (273-304); Potassium 4.7 MMOL/L (3.5-5.1); Total Protein 5.4 G/DL (6.4-8.3)
[2017-09-29 05:44] LABS: Vitamin B12 1925 PG/ML (211-911)
[2017-09-30 05:00] LABS: Basophils % 0.4 % (0.0-0.8); Eosinophils # 0.2 10*3/uL (0.0-0.87); Eosinophils % 2.8 % (0.00-10.9); Hematocrit 28.9 VOL% (42.0-52.0); Hemoglobin 8.9 GM/DL (14.0-18.0); Immature Granulocytes Absolute 0.08 #; Lymphocytes # 0.8 10*3/uL (1.4-4.0); Mean Corpuscular HGB Conc 30.8 GM/DL (32-36); Mean Corpuscular Hemoglobin 29 PG (27-34); Mean Corpuscular Volume 93.2 FL (87-102); Mean Platelet Volume 10.5 FL (9.6-12.0); Monocytes # 0.7 10*3/uL (0.11-0.8); Monocytes % 8.6 % (1.7-12.7); Neutrophils # 6.4 10*3/uL (1.4-7.4); Neutrophils % 77.2 % (38.7-73.9); Platelet Count 175 T/CUMM (130-400); Red Cell Distribution Width 16.5 % (9.3-17.3); White Blood Count 8.3 T/CUMM (4-12)
[2017-09-30 05:30] LABS: Albumin 1.5 G/DL (3.4-5.0); Bilirubin,Direct 0.22 MG/DL (0.0-0.20); Bilirubin,Indirect 0.8 MG/DL (0.0-1.0); Calcium 8.2 MG/DL (8.5-10.1); Osmolality,Calculated 292.4 MOS/KG (273-304); Potassium 4.2 MMOL/L (3.5-5.1)
[2017-10-01 05:02] LABS: Potassium 3.9 MMOL/L (3.5-5.1); Prealbumin 11.7 MG/DL (20-40)
[2017-10-02 04:03] LABS: Basophils % 0.5 % (0.0-0.8); Eosinophils # 0.5 10*3/uL (0.0-0.87); Eosinophils % 6.6 % (0.00-10.9); Hematocrit 28.8 VOL% (42.0-52.0); Hemoglobin 9.2 GM/DL (14.0-18.0); Immature Granulocytes % 0.5 %; Immature Granulocytes Absolute 0.04 #; Lymphocytes # 0.9 10*3/uL (1.4-4.0); Lymphocytes % 12.3 % (21.2-54.2); Mean Corpuscular HGB Conc 31.9 GM/DL (32-36); Mean Corpuscular Hemoglobin 29 PG (27-34); Mean Corpuscular Volume 91.1 FL (87-102); Mean Platelet Volume 10.3 FL (9.6-12.0); Monocytes # 0.6 10*3/uL (0.11-0.8); Monocytes % 8.6 % (1.7-12.7); Neutrophils # 5.3 10*3/uL (1.4-7.4); Neutrophils % 71.5 % (38.7-73.9); Platelet Count 167 T/CUMM (130-400); Red Blood Count 3.16 MC/CUMM (3.8-5.5); Red Cell Distribution Width 16.3 % (9.3-17.3); White Blood Count 7.4 T/CUMM (4-12)
[2017-10-02 04:20] LABS: Calcium 7.9 MG/DL (8.5-10.1); Osmolality,Calculated 284.5 MOS/KG (273-304); Potassium 4.2 MMOL/L (3.5-5.1)
[2017-10-04 03:48] LABS: Basophils % 0.5 % (0.0-0.8); Eosinophils # 0.3 10*3/uL (0.0-0.87); Eosinophils % 3.4 % (0.00-10.9); Hematocrit 26.8 VOL% (42.0-52.0); Hemoglobin 8.8 GM/DL (14.0-18.0); Immature Granulocytes % 0.9 %; Immature Granulocytes Absolute 0.08 #; Lymphocytes % 11.6 % (21.2-54.2); Mean Corpuscular HGB Conc 32.8 GM/DL (32-36); Mean Corpuscular Hemoglobin 29 PG (27-34); Mean Corpuscular Volume 88.7 FL (87-102); Mean Platelet Volume 10.8 FL (9.6-12.0); Monocytes # 0.7 10*3/uL (0.11-0.8); Monocytes % 8.2 % (1.7-12.7); Neutrophils # 6.6 10*3/uL (1.4-7.4); Neutrophils % 75.4 % (38.7-73.9); Platelet Count 185 T/CUMM (130-400); Red Blood Count 3.02 MC/CUMM (3.8-5.5); Red Cell Distribution Width 16.3 % (9.3-17.3); White Blood Count 8.7 T/CUMM (4-12)
[2017-10-04 04:10] LABS: Calcium 7.7 MG/DL (8.5-10.1); Osmolality,Calculated 285.5 MOS/KG (273-304); Potassium 3.7 MMOL/L (3.5-5.1)
[2017-10-04 08:59] LABS: Hemoglobin 6.2 GM/DL (14.0-18.0)
[2017-10-05 16:12] LABS: Basophils % 0.5 % (0.0-0.8); Eosinophils % 0.4 % (0.00-10.9); Hematocrit 26.4 VOL% (42.0-52.0); Hemoglobin 8.4 GM/DL (14.0-18.0); Immature Granulocytes % 1.1 %; Immature Granulocytes Absolute 0.09 #; Lymphocytes # 0.7 10*3/uL (1.4-4.0); Mean Corpuscular HGB Conc 31.8 GM/DL (32-36); Mean Corpuscular Hemoglobin 29 PG (27-34); Mean Corpuscular Volume 90.7 FL (87-102); Mean Platelet Volume 11.2 FL (9.6-12.0); Monocytes # 0.7 10*3/uL (0.11-0.8); Monocytes % 8.8 % (1.7-12.7); Neutrophils # 6.3 10*3/uL (1.4-7.4); Neutrophils % 80.2 % (38.7-73.9); Platelet Count 217 T/CUMM (130-400); Red Blood Count 2.91 MC/CUMM (3.8-5.5); Red Cell Distribution Width 16.9 % (9.3-17.3); White Blood Count 7.9 T/CUMM (4-12)
[2017-10-05 16:38] LABS: Calcium 8.1 MG/DL (8.5-10.1); Osmolality,Calculated 301.5 MOS/KG (273-304); Potassium 4.3 MMOL/L (3.5-5.1)
[2017-10-06 06:28] LABS: Basophils # 0.1 10*3/uL (0.0-0.2); Basophils % 0.6 % (0.0-0.8); Eosinophils # 0.2 10*3/uL (0.0-0.87); Eosinophils % 2.5 % (0.00-10.9); Hematocrit 26.2 VOL% (42.0-52.0); Hemoglobin 8.2 GM/DL (14.0-18.0); Immature Granulocytes % 0.8 %; Immature Granulocytes Absolute 0.07 #; Lymphocytes # 1.1 10*3/uL (1.4-4.0); Lymphocytes % 13.4 % (21.2-54.2); Mean Corpuscular HGB Conc 31.3 GM/DL (32-36); Mean Corpuscular Hemoglobin 29 PG (27-34); Mean Corpuscular Volume 91.6 FL (87-102); Mean Platelet Volume 11.2 FL (9.6-12.0); Monocytes # 0.9 10*3/uL (0.11-0.8); Monocytes % 11.2 % (1.7-12.7); Neutrophils # 5.9 10*3/uL (1.4-7.4); Neutrophils % 71.5 % (38.7-73.9); Platelet Count 197 T/CUMM (130-400); Red Blood Count 2.86 MC/CUMM (3.8-5.5); Red Cell Distribution Width 16.7 % (9.3-17.3); White Blood Count 8.3 T/CUMM (4-12)
[2017-10-06 06:36] LABS: INR 1.1
[2017-10-06 06:53] LABS: Calcium 7.8 MG/DL (8.5-10.1); Osmolality,Calculated 302.3 MOS/KG (273-304); Potassium 4.3 MMOL/L (3.5-5.1)
[2017-10-07 05:57] LABS: Basophils % 0.5 % (0.0-0.8); Eosinophils # 0.5 10*3/uL (0.0-0.87); Eosinophils % 6.4 % (0.00-10.9); Hematocrit 25.5 VOL% (42.0-52.0); Hemoglobin 8.1 GM/DL (14.0-18.0); Immature Granulocytes % 0.9 %; Immature Granulocytes Absolute 0.07 #; Lymphocytes # 0.9 10*3/uL (1.4-4.0); Lymphocytes % 11.4 % (21.2-54.2); Mean Corpuscular HGB Conc 31.8 GM/DL (32-36); Mean Corpuscular Hemoglobin 29 PG (27-34); Mean Corpuscular Volume 90.1 FL (87-102); Monocytes # 0.9 10*3/uL (0.11-0.8); Monocytes % 12.5 % (1.7-12.7); Neutrophils # 5.2 10*3/uL (1.4-7.4); Neutrophils % 68.3 % (38.7-73.9); Platelet Count 176 T/CUMM (130-400); Red Blood Count 2.83 MC/CUMM (3.8-5.5); Red Cell Distribution Width 16.7 % (9.3-17.3); White Blood Count 7.6 T/CUMM (4-12)
[2017-10-07 06:22] LABS: Calcium 7.8 MG/DL (8.5-10.1); Osmolality,Calculated 280.7 MOS/KG (273-304); Potassium 3.7 MMOL/L (3.5-5.1)
[2017-10-08 06:52] LABS: Basophils % 0.6 % (0.0-0.8); Eosinophils # 0.4 10*3/uL (0.0-0.87); Eosinophils % 6.1 % (0.00-10.9); Hematocrit 25.4 VOL% (42.0-52.0); Hemoglobin 7.9 GM/DL (14.0-18.0); Immature Granulocytes Absolute 0.07 #; Lymphocytes # 1.1 10*3/uL (1.4-4.0); Lymphocytes % 15.8 % (21.2-54.2); Mean Corpuscular HGB Conc 31.1 GM/DL (32-36); Mean Corpuscular Hemoglobin 29 PG (27-34); Mean Platelet Volume 11.1 FL (9.6-12.0); Monocytes # 0.7 10*3/uL (0.11-0.8); Monocytes % 10.2 % (1.7-12.7); Neutrophils # 4.7 10*3/uL (1.4-7.4); Neutrophils % 66.3 % (38.7-73.9); Platelet Count 173 T/CUMM (130-400); Red Blood Count 2.76 MC/CUMM (3.8-5.5); Red Cell Distribution Width 17.1 % (9.3-17.3); White Blood Count 7.1 T/CUMM (4-12)
[2017-10-08 07:08] LABS: Albumin 1.2 G/DL (3.4-5.0); Calcium 7.9 MG/DL (8.5-10.1); Osmolality,Calculated 289.3 MOS/KG (273-304); Potassium 3.9 MMOL/L (3.5-5.1)
[2017-10-08 12:17] LABS: ABG HCO3 13.1 MMOL/L (20-26); ABG PCO2 31.1 MM HG (35-48); ABG PH 7.243 (7.35-7.45); ABG PO2 200.8 MM HG (80-95); ABG TCO2 14.1 MMOL/L (23-27)
[2017-10-09 04:26] LABS: Pt O2 Delivery Device Ventilator
[2017-10-09 04:27] LABS: ABG Base Excess -3.2 MMOL/L (-2.5-2.5); ABG HCO3 19.8 MMOL/L (20-26); ABG PCO2 26.5 MM HG (35-48); ABG PH 7.491 (7.35-7.45); ABG PO2 186.3 MM HG (80-95); ABG TCO2 20.6 MMOL/L (23-27)
[2017-10-09 04:28] LABS: Basophils # 0.1 10*3/uL (0.0-0.2); Basophils % 0.7 % (0.0-0.8); Eosinophils # 0.4 10*3/uL (0.0-0.87); Eosinophils % 5.5 % (0.00-10.9); Hematocrit 23.9 VOL% (42.0-52.0); Hemoglobin 7.5 GM/DL (14.0-18.0); Immature Granulocytes Absolute 0.08 #; Lymphocytes # 0.9 10*3/uL (1.4-4.0); Lymphocytes % 11.9 % (21.2-54.2); Mean Corpuscular HGB Conc 31.4 GM/DL (32-36); Mean Corpuscular Hemoglobin 29 PG (27-34); Mean Corpuscular Volume 91.2 FL (87-102); Mean Platelet Volume 11.1 FL (9.6-12.0); Monocytes # 0.8 10*3/uL (0.11-0.8); Monocytes % 10.2 % (1.7-12.7); Neutrophils # 5.4 10*3/uL (1.4-7.4); Neutrophils % 70.7 % (38.7-73.9); Platelet Count 184 T/CUMM (130-400); Red Blood Count 2.62 MC/CUMM (3.8-5.5); Red Cell Distribution Width 17.2 % (9.3-17.3); White Blood Count 7.6 T/CUMM (4-12)
[2017-10-09 05:03] LABS: Albumin 1.2 G/DL (3.4-5.0); Calcium 8.2 MG/DL (8.5-10.1); Osmolality,Calculated 292.1 MOS/KG (273-304); Potassium 3.6 MMOL/L (3.5-5.1); Potassium 3.7 MMOL/L (3.5-5.1)
[2017-10-10 03:40] LABS: ABG Base Excess -0.9 MMOL/L (-2.5-2.5); ABG HCO3 23.7 MMOL/L (20-26); ABG Oxygen Saturation 96.5 % (95-100); ABG PH 7.463 (7.35-7.45); ABG PO2 79.7 MM HG (80-95); Allen Test Positive; Pt O2 Delivery Device Ventilator
[2017-10-10 03:53] LABS: Basophils # 0.1 10*3/uL (0.0-0.2); Basophils % 0.7 % (0.0-0.8); Eosinophils # 0.2 10*3/uL (0.0-0.87); Eosinophils % 2.5 % (0.00-10.9); Immature Granulocytes % 1.1 %; Lymphocytes # 1.2 10*3/uL (1.4-4.0); Lymphocytes % 12.5 % (21.2-54.2); Mean Corpuscular HGB Conc 33.2 GM/DL (32-36); Mean Corpuscular Hemoglobin 29 PG (27-34); Mean Corpuscular Volume 88.2 FL (87-102); Mean Platelet Volume 10.8 FL (9.6-12.0); Monocytes # 0.6 10*3/uL (0.11-0.8); Monocytes % 6.3 % (1.7-12.7); Neutrophils # 7.1 10*3/uL (1.4-7.4); Neutrophils % 76.9 % (38.7-73.9); Platelet Count 159 T/CUMM (130-400); Red Cell Distribution Width 16.6 % (9.3-17.3); White Blood Count 9.2 T/CUMM (4-12)
[2017-10-10 03:55] LABS: Hemoglobin 10.4 GM/DL (14.0-18.0); Red Blood Count 3.55 MC/CUMM (3.8-5.5)
[2017-10-10 03:56] LABS: Hematocrit 31.3 VOL% (42.0-52.0)
[2017-10-10 04:09] LABS: Albumin 1.3 G/DL (3.4-5.0); Calcium 7.6 MG/DL (8.5-10.1); Osmolality,Calculated 286.5 MOS/KG (273-304); Potassium 3.5 MMOL/L (3.5-5.1)
[2017-10-10 10:32] LABS: ABG Base Excess -5.2 MMOL/L (-2.5-2.5); ABG HCO3 20.1 MMOL/L (20-26); ABG Oxygen Saturation 96.6 % (95-100); ABG PCO2 36.1 MM HG (35-48); ABG PH 7.349 (7.35-7.45); ABG PO2 87.9 MM HG (80-95)
[2017-10-10 12:49] LABS: ABG Base Excess -1.9 MMOL/L (-2.5-2.5); ABG HCO3 22.5 MMOL/L (20-26); ABG Oxygen Saturation 98.2 % (95-100); ABG PCO2 37.1 MM HG (35-48); ABG PH 7.401 (7.35-7.45); ABG PO2 122.8 MM HG (80-95); ABG TCO2 23.7 MMOL/L (23-27)
[2017-10-11 04:03] LABS: ABG Base Excess -1.1 MMOL/L (-2.5-2.5); ABG HCO3 23.5 MMOL/L (20-26); ABG Oxygen Saturation 98.3 % (95-100); ABG TCO2 21.2 MMOL/L (23-27)
[2017-10-11 04:20] LABS: Basophils # 0.1 10*3/uL (0.0-0.2); Basophils % 0.8 % (0.0-0.8); Eosinophils # 0.4 10*3/uL (0.0-0.87); Eosinophils % 4.7 % (0.00-10.9); Hematocrit 33.2 VOL% (42.0-52.0); Hemoglobin 10.6 GM/DL (14.0-18.0); Immature Granulocytes % 1.1 %; Lymphocytes # 0.9 10*3/uL (1.4-4.0); Lymphocytes % 9.9 % (21.2-54.2); Mean Corpuscular HGB Conc 31.9 GM/DL (32-36); Mean Corpuscular Hemoglobin 29 PG (27-34); Mean Corpuscular Volume 89.5 FL (87-102); Mean Platelet Volume 11.1 FL (9.6-12.0); Monocytes # 0.5 10*3/uL (0.11-0.8); Monocytes % 5.2 % (1.7-12.7); Neutrophils # 6.9 10*3/uL (1.4-7.4); Neutrophils % 78.3 % (38.7-73.9); Platelet Count 189 T/CUMM (130-400); Red Blood Count 3.71 MC/CUMM (3.8-5.5); Red Cell Distribution Width 16.9 % (9.3-17.3); White Blood Count 8.8 T/CUMM (4-12)
[2017-10-11 04:47] LABS: Calcium 7.5 MG/DL (8.5-10.1); Osmolality,Calculated 284.7 MOS/KG (273-304); Potassium 3.4 MMOL/L (3.5-5.1)
[2017-10-11 04:49] LABS: Albumin 1.2 G/DL (3.4-5.0); Calcium 7.4 MG/DL (8.5-10.1); Osmolality,Calculated 286.5 MOS/KG (273-304); Potassium 3.5 MMOL/L (3.5-5.1)
[2017-10-12 05:23] LABS: Basophils # 0.1 10*3/uL (0.0-0.2); Basophils % 0.8 % (0.0-0.8); Eosinophils # 0.2 10*3/uL (0.0-0.87); Eosinophils % 2.4 % (0.00-10.9); Hematocrit 30.4 VOL% (42.0-52.0); Hemoglobin 9.8 GM/DL (14.0-18.0); Immature Granulocytes % 0.9 %; Immature Granulocytes Absolute 0.06 #; Lymphocytes # 0.6 10*3/uL (1.4-4.0); Lymphocytes % 8.9 % (21.2-54.2); Mean Corpuscular HGB Conc 32.2 GM/DL (32-36); Mean Corpuscular Hemoglobin 29 PG (27-34); Mean Corpuscular Volume 89.4 FL (87-102); Mean Platelet Volume 11.1 FL (9.6-12.0); Monocytes # 0.5 10*3/uL (0.11-0.8); Neutrophils # 5.3 10*3/uL (1.4-7.4); Platelet Count 172 T/CUMM (130-400); Red Cell Distribution Width 17.2 % (9.3-17.3); White Blood Count 6.6 T/CUMM (4-12)
[2017-10-12 06:11] LABS: Albumin 1.2 G/DL (3.4-5.0); Calcium 7.4 MG/DL (8.5-10.1); Osmolality,Calculated 289.7 MOS/KG (273-304); Potassium 3.3 MMOL/L (3.5-5.1)
[2017-10-12 06:17] LABS: Calcium 7.4 MG/DL (8.5-10.1); Osmolality,Calculated 287.8 MOS/KG (273-304); Potassium 3.4 MMOL/L (3.5-5.1); Prealbumin 10.1 MG/DL (20-40)
[2017-10-14 07:59] LABS: Basophils % 0.5 % (0.0-0.8); Eosinophils # 0.3 10*3/uL (0.0-0.87); Eosinophils % 5.3 % (0.00-10.9); Hematocrit 28.8 VOL% (42.0-52.0); Hemoglobin 9.4 GM/DL (14.0-18.0); Immature Granulocytes % 0.6 %; Immature Granulocytes Absolute 0.04 #; Lymphocytes # 1.1 10*3/uL (1.4-4.0); Lymphocytes % 16.7 % (21.2-54.2); Mean Corpuscular HGB Conc 32.6 GM/DL (32-36); Mean Corpuscular Hemoglobin 29 PG (27-34); Mean Corpuscular Volume 89.2 FL (87-102); Mean Platelet Volume 11.4 FL (9.6-12.0); Monocytes # 0.6 10*3/uL (0.11-0.8); NRBC # 0.02 10*3/uL; Neutrophils # 4.4 10*3/uL (1.4-7.4); Neutrophils % 67.9 % (38.7-73.9); Platelet Count 133 T/CUMM (130-400); Red Blood Count 3.23 MC/CUMM (3.8-5.5); Red Cell Distribution Width 16.9 % (9.3-17.3); White Blood Count 6.5 T/CUMM (4-12)
[2017-10-14 08:11] LABS: Band Neutrophils 1 % (0-10); Hypochromasia 1+; Lymphocytes 17 % (20-55); Platelet Estimate Normal; Segmented Neutrophils 78 % (50-85); Total Cells Counted 100
[2017-10-15 07:09] LABS: Calcium 7.7 MG/DL (8.5-10.1); Osmolality,Calculated 285.7 MOS/KG (273-304); Potassium 3.5 MMOL/L (3.5-5.1); Prealbumin 10.1 MG/DL (20-40)
[2017-10-17 11:13] LABS: Basophils # 0.1 10*3/uL (0.0-0.2); Basophils % 0.7 % (0.0-0.8); Eosinophils # 0.2 10*3/uL (0.0-0.87); Eosinophils % 3.2 % (0.00-10.9); Hematocrit 29.2 VOL% (42.0-52.0); Hemoglobin 9.4 GM/DL (14.0-18.0); Immature Granulocytes % 1.1 %; Immature Granulocytes Absolute 0.08 #; Lymphocytes # 1.3 10*3/uL (1.4-4.0); Lymphocytes % 16.4 % (21.2-54.2); Mean Corpuscular HGB Conc 32.2 GM/DL (32-36); Mean Corpuscular Hemoglobin 29 PG (27-34); Mean Corpuscular Volume 89.6 FL (87-102); Mean Platelet Volume 11.8 FL (9.6-12.0); Monocytes # 0.5 10*3/uL (0.11-0.8); Monocytes % 6.4 % (1.7-12.7); Neutrophils # 5.5 10*3/uL (1.4-7.4); Neutrophils % 72.2 % (38.7-73.9); Red Blood Count 3.26 MC/CUMM (3.8-5.5); Red Cell Distribution Width 16.7 % (9.3-17.3); White Blood Count 7.6 T/CUMM (4-12)
[2017-10-17 11:17] LABS: Platelet Count 96 T/CUMM (130-400)
[2017-10-17 11:35] LABS: Eosinophils 4 % (0-10); Hypochromasia 1+; Lymphocytes 12 % (20-55); Platelet Estimate Decreased; Segmented Neutrophils 79 % (50-85); Total Cells Counted 100
[2017-10-17 11:48] LABS: Calcium 7.1 MG/DL (8.5-10.1); Osmolality,Calculated 286.8 MOS/KG (273-304); Potassium 4.1 MMOL/L (3.5-5.1)
[2017-10-19 04:53] LABS: Basophils # 0.1 10*3/uL (0.0-0.2); Eosinophils # 0.6 10*3/uL (0.0-0.87); Eosinophils % 8.4 % (0.00-10.9); Hematocrit 24.8 VOL% (42.0-52.0); Hemoglobin 7.7 GM/DL (14.0-18.0); Immature Granulocytes % 1.7 %; Immature Granulocytes Absolute 0.12 #; Lymphocytes # 1.5 10*3/uL (1.4-4.0); Lymphocytes % 20.9 % (21.2-54.2); Mean Corpuscular Hemoglobin 28 PG (27-34); Mean Corpuscular Volume 90.8 FL (87-102); Mean Platelet Volume 12.1 FL (9.6-12.0); Monocytes # 0.7 10*3/uL (0.11-0.8); Monocytes % 9.5 % (1.7-12.7); NRBC # 0.02 10*3/uL; Neutrophils # 4.1 10*3/uL (1.4-7.4); Neutrophils % 58.5 % (38.7-73.9); Platelet Count 65 T/CUMM (130-400); Red Blood Count 2.73 MC/CUMM (3.8-5.5); Red Cell Distribution Width 16.5 % (9.3-17.3); White Blood Count 6.9 T/CUMM (4-12)
[2017-10-19 05:16] LABS: Albumin 1.1 G/DL (3.4-5.0); Calcium 7.4 MG/DL (8.5-10.1); Osmolality,Calculated 296.7 MOS/KG (273-304); Potassium 5.1 MMOL/L (3.5-5.1)
[2017-10-19 05:21] LABS: Prealbumin 12.9 MG/DL (20-40)
[2017-10-19 05:29] LABS: Anisocytosis 1+; Band Neutrophils 21 % (0-10); Eosinophils 11 % (0-10); Lymphocytes 8 % (20-55); Platelet Estimate Decreased; Segmented Neutrophils 52 % (50-85); Total Cells Counted 100
[2017-10-20 01:48] LABS: Basophils # 0.1 10*3/uL (0.0-0.2); Basophils % 0.7 % (0.0-0.8); Eosinophils # 0.7 10*3/uL (0.0-0.87); Eosinophils % 9.6 % (0.00-10.9); Hemoglobin 8.1 GM/DL (14.0-18.0); Immature Granulocytes % 1.9 %; Immature Granulocytes Absolute 0.13 #; Lymphocytes % 14.7 % (21.2-54.2); Mean Corpuscular HGB Conc 32.4 GM/DL (32-36); Mean Corpuscular Hemoglobin 29 PG (27-34); Mean Corpuscular Volume 89.6 FL (87-102); Mean Platelet Volume 12.1 FL (9.6-12.0); Monocytes # 0.6 10*3/uL (0.11-0.8); Monocytes % 8.4 % (1.7-12.7); Neutrophils # 4.5 10*3/uL (1.4-7.4); Neutrophils % 64.7 % (38.7-73.9); Platelet Count 68 T/CUMM (130-400); Red Blood Count 2.79 MC/CUMM (3.8-5.5); Red Cell Distribution Width 16.1 % (9.3-17.3); White Blood Count 6.9 T/CUMM (4-12)
[2017-10-20 02:11] LABS: Albumin 1.1 G/DL (3.4-5.0); Calcium 7.2 MG/DL (8.5-10.1); Osmolality,Calculated 284.5 MOS/KG (273-304); Potassium 4.2 MMOL/L (3.5-5.1)
[2017-10-20 02:24] LABS: Band Neutrophils 1 % (0-10); Eosinophils 12 % (0-10); Lymphocytes 10 % (20-55); Platelet Estimate Decreased; Segmented Neutrophils 75 % (50-85); Total Cells Counted 100
[2017-10-20 02:26] LABS: Microcytosis Slight; Target Cells Slight
[2017-10-20 10:06] LABS: Basophils # 0.1 10*3/uL (0.0-0.2); Eosinophils # 0.7 10*3/uL (0.0-0.87); Eosinophils % 9.2 % (0.00-10.9); Immature Granulocytes Absolute 0.16 #; Lymphocytes # 1.2 10*3/uL (1.4-4.0); Mean Corpuscular Hemoglobin 29 PG (27-34); Mean Corpuscular Volume 90.9 FL (87-102); Mean Platelet Volume 12.3 FL (9.6-12.0); Monocytes # 0.6 10*3/uL (0.11-0.8); Monocytes % 7.8 % (1.7-12.7); Neutrophils # 5.1 10*3/uL (1.4-7.4); Platelet Count 75 T/CUMM (130-400); Red Blood Count 2.75 MC/CUMM (3.8-5.5); Red Cell Distribution Width 16.2 % (9.3-17.3); White Blood Count 7.8 T/CUMM (4-12)
[2017-10-20 10:24] LABS: Band Neutrophils 3 % (0-10); Eosinophils 9 % (0-10); Hypochromasia 1+; Lymphocytes 9 % (20-55); Platelet Estimate Decreased; Segmented Neutrophils 68 % (50-85); Total Cells Counted 100
[2017-10-20 10:25] LABS: Microcytosis Slight
[2017-10-20 12:38] VITALS: BP 126/69
== END 2017-10-20 15:10 | DRG 239 ==
LOC: SUATTDRO 16:42 → N.3E 16:42 → EDSTATUS 09-23 07:30 → N.ICU 09-23 15:05 → N.3E 09-25 17:03 → N.CC 09-26 20:07 → N.5E 10-02 16:16 → N.ICU 10-08 12:49 → N.3E 10-13 19:32
PROVIDERS: ADMIT Surgery; ATTEND Internal Medicine

== ENCOUNTER 2019-01-23 15:25 | Inpatient (IN) ==
[2019-01-23 16:25] LABS: Basophils # 0.1 10*3/uL (0.0-0.2); Eosinophils # 0.4 10*3/uL (0.0-0.87); Eosinophils % 3.4 % (0.00-10.9); Hematocrit 32.1 VOL% (42.0-52.0); Hemoglobin 9.9 GM/DL (14.0-18.0); Immature Granulocytes % 1.4 %; Immature Granulocytes Absolute 0.17 #; Lymphocytes # 2.5 10*3/uL (1.4-4.0); Lymphocytes % 20.9 % (21.2-54.2); Mean Corpuscular HGB Conc 30.8 GM/DL (32-36); Mean Corpuscular Volume 100.3 FL (87-102); Mean Platelet Volume 10.7 FL (9.6-12.0); Monocytes % 10.2 % (1.7-12.7); Neutrophils % 63.1 % (38.7-73.9); Platelet Count 313 T/CUMM (130-400); Red Cell Distribution Width 15.1 % (9.3-17.3); White Blood Count 11.7 T/CUMM (4-12)
[2019-01-23 16:32] LABS: INR 1.1; PT Patient Result 11.9 SECS (9.6-12.2)
[2019-01-23 17:01] LABS: Apearance,Urine CLOUDY (Clear); Bacteria,Urine Moderate /HPF (Few); Bilirubin,Urine Negative (Negative); Blood, Urine Large mg/dL (Negative); Glucose,Urine (UA) Negative (Negative); Ketones,Urine Negative (Negative); Nitrite,Urine Negative (Negative); Protein,Urine >=500 MG/DL; RBC,Urine 264 /HPF (0-4); Urine Color Amber (Yellow); Urine Specific Gravity 1.011 (1.001-1.035); Urine Urobilinogen < 2.0 EU/DL (0.2-1.0)
[2019-01-23 17:03] LABS: Alanine Aminotransferase 199 U/L (16-61); Alkaline Phosphatase 419 U/L (45-117); Aspartate Amino Transferase 237 U/L (0-37); Bilirubin,Total < 0.39 MG/DL (0.2-1.0); Blood Urea Nitrogen 94 MG/DL (7-18); Calcium 9.2 MG/DL (8.5-10.1); Estimated Glom Filtration Rate 15 ML/MIN; Glucose 179 MG/DL (74-106); Osmolality,Calculated 300.2 MOS/KG (273-304); Total Protein 8.6 G/DL (6.4-8.3)
[2019-01-23] MEDS ORDERED: SODIUM CHLORIDE 0.9% 1,000 ML IV SCH (18:00)
[2019-01-23] MEDS: ALBUTEROL/IPRATROPIUM 3 ML NEB RESP TX SCH ×2 (19:54→23:41)
[2019-01-23] MEDS ORDERED: APIXABAN 2.5 MG TABLET PEG SCH (21:00)
[2019-01-23] MEDS ORDERED: ENOXAPARIN 40 MG/0.4 ML SYRINGE SUBCUT SCH (21:00)
[2019-01-23] MEDS: cefTRIAXone 1,000 MG in SYRINGE 1 EACH IV SCH (21:14)
[2019-01-23] MEDS: METOPROLOL TARTRATE 25 MG TABLET PEG SCH (21:14)
[2019-01-23] MEDS: AMIODARONE 200 MG TABLET PEG SCH (21:15)
[2019-01-23] MEDS: METOCLOPRAMIDE 10 MG TABLET PEG SCH (21:15)
[2019-01-24] MEDS: ALBUTEROL/IPRATROPIUM 3 ML NEB RESP TX SCH ×6 (03:20→23:20)
[2019-01-24 05:35] LABS: Hematocrit 29.3 VOL% (42.0-52.0); Hemoglobin 9.3 GM/DL (14.0-18.0); Red Blood Count 2.96 MC/CUMM (3.8-5.5); White Blood Count 13.1 T/CUMM (4-12)
[2019-01-24 05:36] LABS: Basophils # 0.1 10*3/uL (0.0-0.2); Basophils % 0.6 % (0.0-0.8); Eosinophils # 0.3 10*3/uL (0.0-0.87); Eosinophils % 2.5 % (0.00-10.9); Immature Granulocytes % 1.1 %; Immature Granulocytes Absolute 0.15 #; Lymphocytes # 2.4 10*3/uL (1.4-4.0); Mean Corpuscular HGB Conc 31.7 GM/DL (32-36); Mean Platelet Volume 10.4 FL (9.6-12.0); Monocytes % 11.6 % (1.7-12.7); Neutrophils % 66.2 % (38.7-73.9); Platelet Count 311 T/CUMM (130-400); Red Cell Distribution Width 15.1 % (9.3-17.3)
[2019-01-24 06:05] LABS: Albumin 1.9 G/DL (3.4-5.0); Bilirubin,Total 0.5 MG/DL (0.2-1.0); Calcium 9.3 MG/DL (8.5-10.1); Osmolality,Calculated 304.7 MOS/KG (273-304); Risk Ratio 1.73; Thyroid Stimulating Hormone 92.2 uIU/ml (0.358-3.74); Total Protein 8.4 G/DL (6.4-8.3)
[2019-01-24] MEDS ORDERED: DESITIN 4OZ/NYSTATIN 15 GRAM MIXTURE PASTE TOP SCH (09:00)
[2019-01-24] MEDS ORDERED: [UNRECOGNIZED DRUG - OTHER] TOP SCH (09:00)
[2019-01-24] MEDS ORDERED: DEXTROSE 50% 25 GM/50 ML VIAL IV PRN (09:13)
[2019-01-24] MEDS ORDERED: GLUCAGON 1 MG VIAL IM PRN (09:13)
[2019-01-24] MEDS: METOPROLOL TARTRATE 25 MG TABLET PEG SCH ×2 (09:45→21:31)
[2019-01-24] MEDS: AMIODARONE 200 MG TABLET PEG SCH ×2 (09:45→21:31)
[2019-01-24] MEDS: METOCLOPRAMIDE 10 MG TABLET PEG SCH ×4 (09:45→21:31)
[2019-01-24] MEDS ORDERED: HEPARIN 10,000 UNIT/10 ML VIAL IV SCH (12:00)
[2019-01-24] MEDS: INSULIN REGULAR 100 UNIT/ML SUBCUT SCH ×2 (15:50→18:35)
[2019-01-24] MEDS: SODIUM HYPOCHLORITE 0.25% IRRIG 473 ML BOTTLE TOP SCH (15:55)
[2019-01-24 16:00] LABS: Hepatitis B Core IgM Quant 0.09 Index; Hepatitis B Surface Ag Quant < 0.10 Index; Hepatitis B Surface Ag Result Negative (Negative); Hepatitis C Virus Ab Quant < 0.02 Index; Hepatitis C Virus Ab Result Negative (Negative)
[2019-01-24] MEDS: PANTOPRAZOLE 40 MG VIAL IV SCH (21:30)
[2019-01-24] MEDS: cefTRIAXone 1,000 MG in SYRINGE 1 EACH IV SCH (21:31)
[2019-01-25] MEDS: INSULIN REGULAR 100 UNIT/ML SUBCUT SCH ×4 (00:33→17:58)
[2019-01-25] MEDS: ALBUTEROL/IPRATROPIUM 3 ML NEB RESP TX SCH ×5 (03:15→19:18)
[2019-01-25 05:11] LABS: Basophils # 0.1 10*3/uL (0.0-0.2); Basophils % 0.7 % (0.0-0.8); Eosinophils # 0.1 10*3/uL (0.0-0.87); Hematocrit 31.4 VOL% (42.0-52.0); Hemoglobin 9.7 GM/DL (14.0-18.0); Immature Granulocytes % 1.4 %; Immature Granulocytes Absolute 0.14 #; Lymphocytes # 1.7 10*3/uL (1.4-4.0); Lymphocytes % 16.8 % (21.2-54.2); Mean Corpuscular HGB Conc 30.9 GM/DL (32-36); Mean Corpuscular Volume 101.6 FL (87-102); Mean Platelet Volume 10.2 FL (9.6-12.0); Monocytes % 12.1 % (1.7-12.7); Platelet Count 303 T/CUMM (130-400); Red Blood Count 3.09 MC/CUMM (3.8-5.5); Red Cell Distribution Width 15.6 % (9.3-17.3); White Blood Count 10.3 T/CUMM (4-12)
[2019-01-25 05:35] LABS: Albumin 1.9 G/DL (3.4-5.0); Bilirubin,Total 0.9 MG/DL (0.2-1.0); Calcium 8.8 MG/DL (8.5-10.1); Osmolality,Calculated 299.4 MOS/KG (273-304); Total Protein 8.4 G/DL (6.4-8.3)
[2019-01-25 05:43] LABS: Alanine Aminotransferase 190 U/L (16-61); Albumin 1.9 G/DL (3.4-5.0); Alkaline Phosphatase 423 U/L (45-117); Aspartate Amino Transferase 246 U/L (0-37); Bilirubin,Indirect 0.3 MG/DL (0.0-1.0); Bilirubin,Total < 0.39 MG/DL (0.2-1.0); Total Protein 8.4 G/DL (6.4-8.3)
[2019-01-25] MEDS ORDERED: INSULIN REGULAR 100 UNIT/ML IV ONE (08:54)
[2019-01-25] MEDS: AMIODARONE 200 MG TABLET PEG SCH ×2 (09:45→21:01)
[2019-01-25] MEDS: METOPROLOL TARTRATE 25 MG TABLET PEG SCH ×2 (09:45→21:01)
[2019-01-25] MEDS: PANTOPRAZOLE 40 MG VIAL IV SCH ×2 (09:45→21:01)
[2019-01-25] MEDS: METOCLOPRAMIDE 10 MG TABLET PEG SCH ×4 (09:45→21:02)
[2019-01-25] MEDS: SODIUM HYPOCHLORITE 0.25% IRRIG 473 ML BOTTLE TOP SCH (09:46)
[2019-01-25 12:00] LABS: Free T4 (Free Thyroxine) 0.28 NG/DL (0.76-1.46)
[2019-01-25] MEDS ORDERED: INSULIN NPH 100 UNIT/ML SUBCUT ONE (18:00)
[2019-01-25] MEDS ORDERED: POLYETHYLENE GLYCOL 3350/ELECTROLYTES 4,000 ML BOTTLE PEG ONE (18:00)
[2019-01-25] MEDS: cefTRIAXone 1,000 MG in SYRINGE 1 EACH IV SCH (21:02)
[2019-01-26] MEDS: ALBUTEROL/IPRATROPIUM 3 ML NEB RESP TX SCH ×5 (00:09→15:54)
[2019-01-26] MEDS: INSULIN REGULAR 100 UNIT/ML SUBCUT SCH ×3 (00:19→13:09)
[2019-01-26 04:24] LABS: Basophils # 0.1 10*3/uL (0.0-0.2); Eosinophils # 0.3 10*3/uL (0.0-0.87); Eosinophils % 2.6 % (0.00-10.9); Hematocrit 31.1 VOL% (42.0-52.0); Hemoglobin 9.6 GM/DL (14.0-18.0); Immature Granulocytes Absolute 0.12 #; Lymphocytes # 1.9 10*3/uL (1.4-4.0); Lymphocytes % 16.5 % (21.2-54.2); Mean Corpuscular HGB Conc 30.9 GM/DL (32-36); Mean Platelet Volume 9.9 FL (9.6-12.0); Monocytes % 10.3 % (1.7-12.7); Neutrophils % 68.6 % (38.7-73.9); Platelet Count 324 T/CUMM (130-400); Red Blood Count 3.11 MC/CUMM (3.8-5.5); Red Cell Distribution Width 15.5 % (9.3-17.3); White Blood Count 11.7 T/CUMM (4-12)
[2019-01-26 04:48] LABS: Albumin 1.9 G/DL (3.4-5.0); Bilirubin,Total 0.7 MG/DL (0.2-1.0); Calcium 9.2 MG/DL (8.5-10.1); Osmolality,Calculated 299.7 MOS/KG (273-304); Total Protein 8.4 G/DL (6.4-8.3)
[2019-01-26 06:09] LABS: Bilirubin,Direct 0.11 MG/DL (0.0-0.20); Bilirubin,Indirect 0.6 MG/DL (0.0-1.0); Bilirubin,Total 0.7 MG/DL (0.2-1.0); Total Protein 7.6 G/DL (6.4-8.3)
[2019-01-26] MEDS ORDERED: LEVOTHYROXINE 100 MCG TABLET PO SCH (06:30)
[2019-01-26] MEDS ORDERED: LACTATED RINGERS 1,000 ML IV SCH (07:00)
[2019-01-26] MEDS ORDERED: KETAMINE 500 MG/10 ML VIAL ONE (07:47)
[2019-01-26] MEDS ORDERED: SODIUM CHLORIDE 0.9% 1,000 ML IV SCH (08:00)
[2019-01-26] MEDS ORDERED: LANSOPRAZOLE ODT 30 MG TABLET PEG SCH (09:00)
[2019-01-26] MEDS ORDERED: PROPOFOL 200 MG/20 ML VIAL IV ONE (09:00)
[2019-01-26] MEDS ORDERED: ETOMIDATE 20 MG/10 ML VIAL IV ONE (09:00)
[2019-01-26] MEDS ORDERED: POLYETHYLENE GLYCOL POWDER 17 GM PACK PEG SCH (09:00)
[2019-01-26] MEDS ORDERED: PHENYLEPHRINE 1 MG/10 ML SYRINGE IV ONE (09:00)
[2019-01-26] MEDS ORDERED: LIDOCAINE 2% 5 ML VIAL ONE (09:00)
[2019-01-26] MEDS: METOPROLOL TARTRATE 25 MG TABLET PEG SCH (09:08)
[2019-01-26] MEDS: AMIODARONE 200 MG TABLET PEG SCH (09:08)
[2019-01-26] MEDS: METOCLOPRAMIDE 10 MG TABLET PEG SCH ×2 (10:52→17:59)
[2019-01-26] MEDS: SODIUM HYPOCHLORITE 0.25% IRRIG 473 ML BOTTLE TOP SCH (13:08)
[2019-01-26 17:51] VITALS: BP 115/55
== END 2019-01-26 17:58 | disposition home or self-care (01) | DRG 441 ==
LOC: EDUNIT# → EDBD → N.ED 15:25 → N.EDINP 17:44 → N.5E 18:53
PROVIDERS: ADMIT Internal Medicine; ATTEND Internal Medicine
PROC: COLONBX (2019-01-26 06:35)

== ENCOUNTER 2019-02-01 18:41 | Inpatient (IN) ==
[2019-02-01] MEDS ORDERED: PIPERACILLIN/TAZOBACTAM 3,375 MG in SODIUM CHLORIDE 0.9% 100 ML IV STA (19:06)
[2019-02-01] MEDS ORDERED: INSULIN REGULAR 100 UNIT/ML IV STA (19:06)
[2019-02-01 19:22] LABS: Basophils # 0.1 10*3/uL (0.0-0.2); Basophils % 0.6 % (0.0-0.8); Eosinophils # 0.2 10*3/uL (0.0-0.87); Eosinophils % 1.6 % (0.00-10.9); Hematocrit 29.4 VOL% (42.0-52.0); Immature Granulocytes % 1.1 %; Immature Granulocytes Absolute 0.13 #; Lymphocytes # 1.5 10*3/uL (1.4-4.0); Lymphocytes % 12.7 % (21.2-54.2); Mean Corpuscular HGB Conc 30.6 GM/DL (32-36); Mean Corpuscular Volume 98.3 FL (87-102); Mean Platelet Volume 10.1 FL (9.6-12.0); Monocytes % 8.2 % (1.7-12.7); Neutrophils % 75.8 % (38.7-73.9); Platelet Count 260 T/CUMM (130-400); Red Blood Count 2.99 MC/CUMM (3.8-5.5); White Blood Count 12.1 T/CUMM (4-12)
[2019-02-01 19:33] LABS: PT Patient Result 10.9 SECS (9.6-12.2)
[2019-02-01 19:42] LABS: Alanine Aminotransferase 76 U/L (16-61); Albumin 1.7 G/DL (3.4-5.0); Alkaline Phosphatase 293 U/L (45-117); Aspartate Amino Transferase 74 U/L (0-37); Bilirubin,Total < 0.39 MG/DL (0.2-1.0); Blood Urea Nitrogen 67 MG/DL (7-18); Calcium 9.2 MG/DL (8.5-10.1); Glucose 450 MG/DL (74-106); Osmolality,Calculated 308.1 MOS/KG (273-304); Total Protein 8.4 G/DL (6.4-8.3)
[2019-02-01 19:46] LABS: Estimated Glom Filtration Rate 0 ML/MIN
[2019-02-01 20:13] LABS: ABG Base Excess 3.8 MMOL/L (-2.5-2.5); ABG HCO3 27.9 MMOL/L (20-26); ABG Oxygen Saturation 98.5 % (95-100); ABG PCO2 33.7 MM HG (35-48); ABG PH 7.508 (7.35-7.45); ABG TCO2 24.7 MMOL/L (23-27); Allen Test Positive; Pt O2 Delivery Device Room Air
[2019-02-01 20:47] LABS: Sedimentation Rate-Westergren 120 MM/HR (0-20)
[2019-02-01] MEDS ORDERED: INSULIN REGULAR 100 UNIT/ML SUBCUT STA (22:04)
[2019-02-01] MEDS ORDERED: ALBUTEROL/IPRATROPIUM 3 ML NEB RESP TX PRN (23:05)
[2019-02-01] MEDS ORDERED: ACETAMINOPHEN 325 MG TABLET PO PRN (23:05)
[2019-02-01] MEDS ORDERED: ONDANSETRON 4 MG/2 ML VIAL IV PRN (23:05)
[2019-02-01] MEDS ORDERED: VANCOMYCIN INJ 2,000 MG in SODIUM CHLORIDE 0.9% 500 ML IV ONE (23:30)
[2019-02-01] MEDS ORDERED: GLUCAGON 1 MG VIAL IM PRN (23:32)
[2019-02-01] MEDS ORDERED: DEXTROSE 50% 25 GM/50 ML VIAL IV PRN (23:32)
[2019-02-02] MEDS: INSULIN REGULAR 100 UNIT/ML SUBCUT SCH ×4 (00:09→19:47)
[2019-02-02] MEDS: METOPROLOL TARTRATE 25 MG TABLET PEG SCH ×3 (00:38→20:52)
[2019-02-02] MEDS ORDERED: INFLUENZA VIRUS VACCINE 0.5 ML SYRINGE IM ONE (00:56)
[2019-02-02] MEDS ORDERED: MEROPENEM 500 MG in SODIUM CHLORIDE 0.9% 100 ML IV SCH (03:00)
[2019-02-02] MEDS: LEVOTHYROXINE 100 MCG TABLET PEG SCH (05:36)
[2019-02-02 05:49] LABS: Basophils # 0.1 10*3/uL (0.0-0.2); Basophils % 0.5 % (0.0-0.8); Eosinophils # 0.3 10*3/uL (0.0-0.87); Eosinophils % 2.3 % (0.00-10.9); Hemoglobin 8.8 GM/DL (14.0-18.0); Immature Granulocytes % 1.1 %; Immature Granulocytes Absolute 0.13 #; Lymphocytes # 1.6 10*3/uL (1.4-4.0); Lymphocytes % 13.5 % (21.2-54.2); Mean Corpuscular HGB Conc 31.4 GM/DL (32-36); Mean Corpuscular Volume 97.6 FL (87-102); Mean Platelet Volume 10.5 FL (9.6-12.0); Neutrophils % 73.6 % (38.7-73.9); Platelet Count 247 T/CUMM (130-400); Red Blood Count 2.87 MC/CUMM (3.8-5.5); Red Cell Distribution Width 15.9 % (9.3-17.3); White Blood Count 11.7 T/CUMM (4-12)
[2019-02-02 06:16] LABS: Calcium 8.8 MG/DL (8.5-10.1)
[2019-02-02] MEDS ORDERED: NON-FORMULARY MEDICATION (Dexlansoprazole [Dexilant] 30 MG) PEG SCH (09:00)
[2019-02-02] MEDS ORDERED: APIXABAN 2.5 MG TABLET PEG SCH (09:00)
[2019-02-02] MEDS ORDERED: MULTIVITAMIN (CENTRUM) TABLET PO SCH (09:00)
[2019-02-02] MEDS: POLYETHYLENE GLYCOL POWDER 17 GM PACK PEG SCH ×2 (09:20→20:52)
[2019-02-02] MEDS: AMIODARONE 200 MG TABLET PEG SCH ×2 (09:20→20:52)
[2019-02-02] MEDS: glipiZIDE 10 MG TABLET PEG SCH ×2 (09:20→18:21)
[2019-02-02] MEDS: LACTULOSE 20 GM/30 ML UDCUP PO SCH (09:20)
[2019-02-02] MEDS: LANSOPRAZOLE ODT 30 MG TABLET PEG SCH (09:20)
[2019-02-02] MEDS: METOCLOPRAMIDE 10 MG TABLET PEG SCH ×4 (09:21→20:52)
[2019-02-02] MEDS: SKIN HEALING OINT (AQUAPHOR) 50 GM TUBE TOP SCH (10:36)
[2019-02-02] MEDS: DESITIN 4OZ/NYSTATIN 15 GRAM MIXTURE PASTE TOP SCH (10:36)
[2019-02-02] MEDS ORDERED: VANCOMYCIN INJ 1,000 MG in SODIUM CHLORIDE 0.9% 250 ML IV PRN (15:00)
[2019-02-02] MEDS ORDERED: VANCOMYCIN INJ 750 MG in SODIUM CHLORIDE 0.9% 250 ML IV ONE (17:00)
[2019-02-02] MEDS ORDERED: HEPARIN 10,000 UNIT/10 ML VIAL IV SCH (18:00)
[2019-02-02] MEDS: INSULIN GLARGINE 100 UNIT/ML SUBCUT SCH (20:52)
[2019-02-03] MEDS: INSULIN REGULAR 100 UNIT/ML SUBCUT SCH ×5 (02:37→18:29)
[2019-02-03 05:40] LABS: Basophils # 0.1 10*3/uL (0.0-0.2); Basophils % 0.6 % (0.0-0.8); Eosinophils # 0.4 10*3/uL (0.0-0.87); Eosinophils % 3.2 % (0.00-10.9); Hematocrit 29.3 VOL% (42.0-52.0); Hemoglobin 9.1 GM/DL (14.0-18.0); Immature Granulocytes % 1.2 %; Immature Granulocytes Absolute 0.13 #; Lymphocytes # 1.1 10*3/uL (1.4-4.0); Lymphocytes % 10.5 % (21.2-54.2); Mean Corpuscular HGB Conc 31.1 GM/DL (32-36); Mean Corpuscular Volume 98.7 FL (87-102); Mean Platelet Volume 10.5 FL (9.6-12.0); Monocytes % 9.5 % (1.7-12.7); Platelet Count 274 T/CUMM (130-400); Red Blood Count 2.97 MC/CUMM (3.8-5.5); Red Cell Distribution Width 16.1 % (9.3-17.3); White Blood Count 10.9 T/CUMM (4-12)
[2019-02-03 06:04] LABS: Prealbumin 13.6 MG/DL (20-40)
[2019-02-03] MEDS: LEVOTHYROXINE 100 MCG TABLET PEG SCH (07:04)
[2019-02-03 08:11] LABS: Calcium 8.8 MG/DL (8.5-10.1)
[2019-02-03] MEDS: MEROPENEM 500 MG in SODIUM CHLORIDE 0.9% 100 ML IV SCH (09:48)
[2019-02-03] MEDS ORDERED: LIDOCAINE 1%/EPI INJ 20 ML VIAL ONE (14:31)
[2019-02-03] MEDS ORDERED: BUPIVACAINE MPF 0.25% 30 ML VIAL ONE (14:31)
[2019-02-03] MEDS ORDERED: LIDOCAINE 2% 5 ML VIAL ONE (15:58)
[2019-02-03] MEDS ORDERED: PROPOFOL 200 MG/20 ML VIAL IV ONE (15:58)
[2019-02-03] MEDS ORDERED: SODIUM CHLORIDE 0.9% 250 ML IV ONE (15:59)
[2019-02-03] MEDS ORDERED: fentaNYL 100 MCG/2 ML VIAL ONE (15:59)
[2019-02-03] MEDS ORDERED: MIDAZOLAM 2 MG/2 ML VIAL ONE (15:59)
[2019-02-03] MEDS ORDERED: PHENYLEPHRINE 1 MG/10 ML SYRINGE IV ONE (15:59)
[2019-02-03] MEDS: POLYETHYLENE GLYCOL POWDER 17 GM PACK PEG SCH ×2 (16:55→21:16)
[2019-02-03] MEDS: LACTULOSE 20 GM/30 ML UDCUP PO SCH (16:56)
[2019-02-03] MEDS: SENNA 8.6 MG TABLET PO SCH (16:58)
[2019-02-03] MEDS: METOPROLOL TARTRATE 25 MG TABLET PEG SCH ×2 (16:58→21:17)
[2019-02-03] MEDS: METOCLOPRAMIDE 10 MG TABLET PEG SCH ×4 (16:58→21:17)
[2019-02-03] MEDS: AMIODARONE 200 MG TABLET PEG SCH ×2 (16:59→21:16)
[2019-02-03] MEDS: LANSOPRAZOLE ODT 30 MG TABLET PEG SCH (16:59)
[2019-02-03] MEDS: glipiZIDE 10 MG TABLET PEG SCH ×2 (16:59→17:56)
[2019-02-03] MEDS: SKIN HEALING OINT (AQUAPHOR) 50 GM TUBE TOP SCH (17:00)
[2019-02-03] MEDS: MULTIVITAMIN LIQUID (CENTRUM) 60 ML BOTTLE PEG SCH (17:01)
[2019-02-03] MEDS: DESITIN 4OZ/NYSTATIN 15 GRAM MIXTURE PASTE TOP SCH (17:02)
[2019-02-03] MEDS: POTASSIUM PHOS/SOD PHOS POWDER 250 MG PACK PEG SCH ×2 (17:17→21:16)
[2019-02-03] MEDS: INSULIN GLARGINE 100 UNIT/ML SUBCUT SCH (21:17)
[2019-02-04] MEDS ORDERED: SODIUM CHLORIDE 0.9% 250 ML IV ONE ×2 (01:10→02:17)
[2019-02-04] MEDS ORDERED: NOREPINEPHRINE 8 MG in SODIUM CHLORIDE 0.9% 242 ML IV PRN (02:15)
[2019-02-04] MEDS: INSULIN REGULAR 100 UNIT/ML SUBCUT SCH ×4 (02:22→17:28)
[2019-02-04 02:46] LABS: Calcium 8.4 MG/DL (8.5-10.1)
[2019-02-04 02:53] LABS: Hematocrit 28.4 VOL% (42.0-52.0); Hemoglobin 8.6 GM/DL (14.0-18.0)
[2019-02-04] MEDS: LEVOTHYROXINE 100 MCG TABLET PEG SCH (06:27)
[2019-02-04] MEDS: AMIODARONE 200 MG TABLET PEG SCH ×2 (08:50→20:55)
[2019-02-04] MEDS: glipiZIDE 10 MG TABLET PEG SCH ×2 (08:50→16:02)
[2019-02-04] MEDS: METOPROLOL TARTRATE 25 MG TABLET PEG SCH ×2 (08:51→20:55)
[2019-02-04] MEDS: METOCLOPRAMIDE 10 MG TABLET PEG SCH ×4 (09:38→20:56)
[2019-02-04] MEDS: LANSOPRAZOLE ODT 30 MG TABLET PEG SCH (09:39)
[2019-02-04] MEDS: POTASSIUM PHOS/SOD PHOS POWDER 250 MG PACK PEG SCH ×3 (09:39→20:56)
[2019-02-04] MEDS: LACTULOSE 20 GM/30 ML UDCUP PO SCH (09:39)
[2019-02-04] MEDS: SENNA 8.6 MG TABLET PO SCH (09:39)
[2019-02-04] MEDS: SKIN HEALING OINT (AQUAPHOR) 50 GM TUBE TOP SCH (09:40)
[2019-02-04] MEDS: POLYETHYLENE GLYCOL POWDER 17 GM PACK PEG SCH ×2 (09:40→20:55)
[2019-02-04] MEDS: DESITIN 4OZ/NYSTATIN 15 GRAM MIXTURE PASTE TOP SCH (09:40)
[2019-02-04] MEDS: MULTIVITAMIN LIQUID (CENTRUM) 60 ML BOTTLE PEG SCH (09:52)
[2019-02-04] MEDS ORDERED: BUPIVACAINE 0.25% /EPI 10 ML VIAL ONE (12:50)
[2019-02-04] MEDS ORDERED: LIDOCAINE 1%/EPI INJ 20 ML VIAL ONE (12:50)
[2019-02-04] MEDS ORDERED: BUPIVACAINE 0.5% /EPI 10 ML VIAL ONE (12:52)
[2019-02-04] MEDS ORDERED: LIDOCAINE 2% 5 ML VIAL ONE (13:41)
[2019-02-04] MEDS ORDERED: PROPOFOL 200 MG/20 ML VIAL IV ONE (13:41)
[2019-02-04] MEDS ORDERED: MIDAZOLAM 2 MG/2 ML VIAL ONE (13:42)
[2019-02-04] MEDS ORDERED: PHENYLEPHRINE 1 MG/10 ML SYRINGE IV ONE (13:42)
[2019-02-04] MEDS ORDERED: ONDANSETRON 4 MG/2 ML VIAL ONE (13:42)
[2019-02-04] MEDS ORDERED: DEXAMETHASONE 4 MG/1 ML VIAL ONE (13:42)
[2019-02-04] MEDS ORDERED: fentaNYL 100 MCG/2 ML VIAL ONE (13:42)
[2019-02-04] MEDS ORDERED: NALOXONE 0.4 MG/ML VIAL IV ONE (14:45)
[2019-02-04 15:03] LABS: ABG Base Excess 0.1 MMOL/L (-2.5-2.5); ABG HCO3 24.5 MMOL/L (20-26); ABG Oxygen Saturation 99.7 % (95-100); ABG PCO2 37.1 MM HG (35-48); ABG PH 7.424 (7.35-7.45); ABG TCO2 22.4 MMOL/L (23-27); Allen Test Positive; Pt O2 Delivery Device CPAP
[2019-02-04] MEDS ORDERED: VANCOMYCIN INJ 1,000 MG in SODIUM CHLORIDE 0.9% 250 ML IV ONE (17:00)
[2019-02-04] MEDS: MEROPENEM 500 MG in SODIUM CHLORIDE 0.9% 100 ML IV SCH (17:28)
[2019-02-04] MEDS: INSULIN GLARGINE 100 UNIT/ML SUBCUT SCH (20:55)
[2019-02-05] MEDS: INSULIN REGULAR 100 UNIT/ML SUBCUT SCH ×4 (00:24→17:30)
[2019-02-05] MEDS: LEVOTHYROXINE 100 MCG TABLET PEG SCH (06:20)
[2019-02-05] MEDS: POTASSIUM PHOS/SOD PHOS POWDER 250 MG PACK PEG SCH (08:22)
[2019-02-05] MEDS: METOCLOPRAMIDE 10 MG TABLET PEG SCH ×4 (08:22→20:29)
[2019-02-05] MEDS: glipiZIDE 10 MG TABLET PEG SCH ×2 (08:22→17:29)
[2019-02-05] MEDS: DESITIN 4OZ/NYSTATIN 15 GRAM MIXTURE PASTE TOP SCH (08:23)
[2019-02-05] MEDS: POLYETHYLENE GLYCOL POWDER 17 GM PACK PEG SCH (08:23)
[2019-02-05] MEDS: SENNA 8.6 MG TABLET PO SCH (08:23)
[2019-02-05] MEDS: LACTULOSE 20 GM/30 ML UDCUP PO SCH (08:23)
[2019-02-05] MEDS: SKIN HEALING OINT (AQUAPHOR) 50 GM TUBE TOP SCH (08:23)
[2019-02-05] MEDS: LANSOPRAZOLE ODT 30 MG TABLET PEG SCH (08:29)
[2019-02-05] MEDS: MULTIVITAMIN LIQUID (CENTRUM) 60 ML BOTTLE PEG SCH (08:29)
[2019-02-05] MEDS: AMIODARONE 200 MG TABLET PEG SCH (09:31)
[2019-02-05] MEDS: METOPROLOL TARTRATE 25 MG TABLET PEG SCH (09:31)
[2019-02-05 10:08] LABS: Basophils % 0.1 % (0.0-0.8); Eosinophils % 0.2 % (0.00-10.9); Hematocrit 26.1 VOL% (42.0-52.0); Hemoglobin 7.9 GM/DL (14.0-18.0); Immature Granulocytes % 1.2 %; Immature Granulocytes Absolute 0.15 #; Lymphocytes # 1.3 10*3/uL (1.4-4.0); Lymphocytes % 10.5 % (21.2-54.2); Mean Corpuscular HGB Conc 30.3 GM/DL (32-36); Mean Corpuscular Volume 100.8 FL (87-102); Mean Platelet Volume 10.4 FL (9.6-12.0); Monocytes % 10.2 % (1.7-12.7); Neutrophils % 77.8 % (38.7-73.9); Platelet Count 292 T/CUMM (130-400); Red Blood Count 2.59 MC/CUMM (3.8-5.5); Red Cell Distribution Width 16.7 % (9.3-17.3); White Blood Count 12.6 T/CUMM (4-12)
[2019-02-05] MEDS: HEPARIN 5,000 UNIT/1 ML VIAL SUBCUT SCH ×2 (10:25→17:31)
[2019-02-05 10:29] LABS: Allen Test Positive; Pt O2 Delivery Device BIPAP
[2019-02-05 10:30] LABS: ABG Base Excess -0.2 MMOL/L (-2.5-2.5); ABG HCO3 24.3 MMOL/L (20-26); ABG Oxygen Saturation 98.3 % (95-100); ABG PCO2 36.4 MM HG (35-48); ABG PH 7.426 (7.35-7.45); ABG TCO2 22.3 MMOL/L (23-27)
[2019-02-05 10:34] LABS: Alanine Aminotransferase 75 U/L (16-61); Albumin 1.6 G/DL (3.4-5.0); Alkaline Phosphatase 290 U/L (45-117); Aspartate Amino Transferase 84 U/L (0-37); Bilirubin,Total < 0.39 MG/DL (0.2-1.0); Blood Urea Nitrogen 41 MG/DL (7-18); Estimated Glom Filtration Rate 23 ML/MIN; Glucose 300 MG/DL (74-106); Osmolality,Calculated 297.5 MOS/KG (273-304)
[2019-02-05] MEDS ORDERED: MORPHINE 4 MG/1 ML VIAL IV PRN (14:46)
[2019-02-05] MEDS: INSULIN GLARGINE 100 UNIT/ML SUBCUT SCH ×2 (15:26→20:29)
[2019-02-05] MEDS: LEVOTHYROXINE 100 MCG VIAL IV SCH (15:26)
[2019-02-05] MEDS: ASPIRIN EC 81 MG TABLET PO SCH (15:26)
[2019-02-05] MEDS: ALBUMIN 25% 25 GM in PREMIX 1 EACH IV SCH ×2 (15:28→22:30)
[2019-02-05] MEDS: MEROPENEM 500 MG in SODIUM CHLORIDE 0.9% 100 ML IV SCH (17:30)
[2019-02-06] MEDS: INSULIN REGULAR 100 UNIT/ML SUBCUT SCH ×5 (00:12→23:44)
[2019-02-06] MEDS: HEPARIN 5,000 UNIT/1 ML VIAL SUBCUT SCH ×3 (02:31→17:50)
[2019-02-06 04:16] LABS: Basophils % 0.4 % (0.0-0.8); Eosinophils # 0.3 10*3/uL (0.0-0.87); Eosinophils % 3.3 % (0.00-10.9); Hematocrit 26.8 VOL% (42.0-52.0); Hemoglobin 7.7 GM/DL (14.0-18.0); Immature Granulocytes % 1.6 %; Immature Granulocytes Absolute 0.13 #; Lymphocytes # 1.8 10*3/uL (1.4-4.0); Lymphocytes % 22.3 % (21.2-54.2); Mean Corpuscular HGB Conc 28.7 GM/DL (32-36); Mean Corpuscular Volume 103.9 FL (87-102); Mean Platelet Volume 10.3 FL (9.6-12.0); Monocytes % 8.5 % (1.7-12.7); Neutrophils % 63.9 % (38.7-73.9); Platelet Count 274 T/CUMM (130-400); Red Blood Count 2.58 MC/CUMM (3.8-5.5); Red Cell Distribution Width 16.6 % (9.3-17.3); White Blood Count 7.9 T/CUMM (4-12)
[2019-02-06 04:34] LABS: Calcium 7.4 MG/DL (8.5-10.1); Osmolality,Calculated 295.8 MOS/KG (273-304)
[2019-02-06] MEDS: ALBUMIN 25% 25 GM in PREMIX 1 EACH IV SCH ×3 (06:03→23:44)
[2019-02-06] MEDS: LEVOTHYROXINE 100 MCG VIAL IV SCH (06:03)
[2019-02-06] MEDS ORDERED: SODIUM HYPOCHLORITE 0.25% IRRIG 473 ML BOTTLE TOP PRN (07:00)
[2019-02-06] MEDS: glipiZIDE 10 MG TABLET PEG SCH ×2 (09:30→17:48)
[2019-02-06] MEDS: METOCLOPRAMIDE 10 MG TABLET PEG SCH ×4 (09:31→20:45)
[2019-02-06] MEDS: INSULIN GLARGINE 100 UNIT/ML SUBCUT SCH ×2 (09:31→20:46)
[2019-02-06] MEDS: SENNA 8.6 MG TABLET PO SCH (09:31)
[2019-02-06] MEDS: LANSOPRAZOLE ODT 30 MG TABLET PEG SCH (09:31)
[2019-02-06] MEDS: POLYETHYLENE GLYCOL POWDER 17 GM PACK PEG SCH (09:31)
[2019-02-06] MEDS: ASPIRIN EC 81 MG TABLET PO SCH (09:31)
[2019-02-06] MEDS: DESITIN 4OZ/NYSTATIN 15 GRAM MIXTURE PASTE TOP SCH (09:32)
[2019-02-06] MEDS: SKIN HEALING OINT (AQUAPHOR) 50 GM TUBE TOP SCH (09:32)
[2019-02-06] MEDS: MULTIVITAMIN LIQUID (CENTRUM) 60 ML BOTTLE PEG SCH (09:33)
[2019-02-06] MEDS ORDERED: SODIUM CHLORIDE 0.9% 1,000 ML IV PRN (11:59)
[2019-02-06] MEDS: MEROPENEM 500 MG in SODIUM CHLORIDE 0.9% 100 ML IV SCH (17:49)
[2019-02-07] MEDS: HEPARIN 5,000 UNIT/1 ML VIAL SUBCUT SCH ×3 (02:44→17:36)
[2019-02-07 04:56] LABS: Basophils # 0.1 10*3/uL (0.0-0.2); Basophils % 0.6 % (0.0-0.8); Eosinophils # 0.5 10*3/uL (0.0-0.87); Eosinophils % 5.7 % (0.00-10.9); Hematocrit 24.5 VOL% (42.0-52.0); Hemoglobin 7.4 GM/DL (14.0-18.0); Immature Granulocytes % 2.1 %; Immature Granulocytes Absolute 0.17 #; Lymphocytes # 2.3 10*3/uL (1.4-4.0); Lymphocytes % 27.7 % (21.2-54.2); Mean Corpuscular HGB Conc 30.2 GM/DL (32-36); Mean Corpuscular Volume 102.5 FL (87-102); Mean Platelet Volume 9.7 FL (9.6-12.0); Monocytes % 7.4 % (1.7-12.7); Neutrophils % 56.5 % (38.7-73.9); Platelet Count 293 T/CUMM (130-400); Red Blood Count 2.39 MC/CUMM (3.8-5.5); Red Cell Distribution Width 16.7 % (9.3-17.3); White Blood Count 8.3 T/CUMM (4-12)
[2019-02-07 05:08] LABS: Calcium 7.7 MG/DL (8.5-10.1); Osmolality,Calculated 297.5 MOS/KG (273-304)
[2019-02-07 05:40] LABS: Prealbumin 17.4 MG/DL (20-40)
[2019-02-07] MEDS: INSULIN REGULAR 100 UNIT/ML SUBCUT SCH ×3 (06:00→17:36)
[2019-02-07] MEDS: ALBUMIN 25% 25 GM in PREMIX 1 EACH IV SCH ×3 (06:34→23:45)
[2019-02-07] MEDS: LEVOTHYROXINE 100 MCG VIAL IV SCH (06:36)
[2019-02-07] MEDS: ASPIRIN EC 81 MG TABLET PO SCH (09:38)
[2019-02-07] MEDS: glipiZIDE 10 MG TABLET PEG SCH ×2 (09:38→16:52)
[2019-02-07] MEDS: POLYETHYLENE GLYCOL POWDER 17 GM PACK PEG SCH (09:38)
[2019-02-07] MEDS: LANSOPRAZOLE ODT 30 MG TABLET PEG SCH (09:38)
[2019-02-07] MEDS: SENNA 8.6 MG TABLET PO SCH (09:38)
[2019-02-07] MEDS: MULTIVITAMIN LIQUID (CENTRUM) 60 ML BOTTLE PEG SCH (09:39)
[2019-02-07] MEDS: METOCLOPRAMIDE 10 MG TABLET PEG SCH ×4 (09:39→20:21)
[2019-02-07] MEDS: DESITIN 4OZ/NYSTATIN 15 GRAM MIXTURE PASTE TOP SCH (09:39)
[2019-02-07] MEDS: INSULIN GLARGINE 100 UNIT/ML SUBCUT SCH ×2 (09:39→20:21)
[2019-02-07] MEDS: SKIN HEALING OINT (AQUAPHOR) 50 GM TUBE TOP SCH (09:39)
[2019-02-07] MEDS: LEVOTHYROXINE 150 MCG TABLET PER TUBE SCH (13:25)
[2019-02-07] MEDS: MEROPENEM 500 MG in SODIUM CHLORIDE 0.9% 100 ML IV SCH (16:52)
[2019-02-08] MEDS: INSULIN REGULAR 100 UNIT/ML SUBCUT SCH ×4 (00:32→17:50)
[2019-02-08] MEDS: HEPARIN 5,000 UNIT/1 ML VIAL SUBCUT SCH ×3 (01:46→18:05)
[2019-02-08 05:08] LABS: Basophils # 0.1 10*3/uL (0.0-0.2); Eosinophils # 0.4 10*3/uL (0.0-0.87); Eosinophils % 5.7 % (0.00-10.9); Hemoglobin 9.1 GM/DL (14.0-18.0); Immature Granulocytes % 3.2 %; Immature Granulocytes Absolute 0.23 #; Lymphocytes # 1.8 10*3/uL (1.4-4.0); Lymphocytes % 25.5 % (21.2-54.2); Mean Corpuscular HGB Conc 29.4 GM/DL (32-36); Mean Platelet Volume 10.5 FL (9.6-12.0); Monocytes % 8.7 % (1.7-12.7); Neutrophils % 55.9 % (38.7-73.9); Platelet Count 263 T/CUMM (130-400); Red Blood Count 3.07 MC/CUMM (3.8-5.5); Red Cell Distribution Width 17.5 % (9.3-17.3); White Blood Count 7.2 T/CUMM (4-12)
[2019-02-08 05:41] LABS: Calcium 8.4 MG/DL (8.5-10.1); Osmolality,Calculated 294.5 MOS/KG (273-304)
[2019-02-08] MEDS: LEVOTHYROXINE 150 MCG TABLET PER TUBE SCH (06:36)
[2019-02-08] MEDS: ALBUMIN 25% 25 GM in PREMIX 1 EACH IV SCH ×2 (06:36→15:21)
[2019-02-08] MEDS: METOCLOPRAMIDE 10 MG TABLET PEG SCH ×4 (09:07→21:01)
[2019-02-08] MEDS: DESITIN 4OZ/NYSTATIN 15 GRAM MIXTURE PASTE TOP SCH (09:13)
[2019-02-08] MEDS: SKIN HEALING OINT (AQUAPHOR) 50 GM TUBE TOP SCH (09:13)
[2019-02-08] MEDS: glipiZIDE 10 MG TABLET PEG SCH ×2 (11:16→18:06)
[2019-02-08] MEDS: INSULIN GLARGINE 100 UNIT/ML SUBCUT SCH ×2 (11:49→21:01)
[2019-02-08] MEDS: ERGOCALCIFEROL 50,000 UNIT CAPSULE PO SCH (11:49)
[2019-02-08] MEDS: LANSOPRAZOLE ODT 30 MG TABLET PEG SCH (11:50)
[2019-02-08] MEDS: ASPIRIN EC 81 MG TABLET PO SCH (11:50)
[2019-02-08] MEDS: SENNA 8.6 MG TABLET PO SCH (11:50)
[2019-02-08] MEDS: POLYETHYLENE GLYCOL POWDER 17 GM PACK PEG SCH (11:50)
[2019-02-08] MEDS: MULTIVITAMIN LIQUID (CENTRUM) 60 ML BOTTLE PEG SCH (11:51)
[2019-02-08] MEDS: MEROPENEM 500 MG in SODIUM CHLORIDE 0.9% 100 ML IV SCH (18:04)
[2019-02-09] MEDS: ALBUMIN 25% 25 GM in PREMIX 1 EACH IV SCH ×3 (00:30→18:25)
[2019-02-09] MEDS: INSULIN REGULAR 100 UNIT/ML SUBCUT SCH ×4 (00:58→17:41)
[2019-02-09] MEDS: HEPARIN 5,000 UNIT/1 ML VIAL SUBCUT SCH (01:19)
[2019-02-09] MEDS: LEVOTHYROXINE 150 MCG TABLET PER TUBE SCH (05:32)
[2019-02-09 06:17] LABS: Basophils # 0.1 10*3/uL (0.0-0.2); Basophils % 0.9 % (0.0-0.8); Eosinophils # 0.5 10*3/uL (0.0-0.87); Eosinophils % 5.5 % (0.00-10.9); Hematocrit 28.6 VOL% (42.0-52.0); Hemoglobin 8.8 GM/DL (14.0-18.0); Immature Granulocytes % 1.9 %; Immature Granulocytes Absolute 0.18 #; Lymphocytes # 2.7 10*3/uL (1.4-4.0); Lymphocytes % 28.4 % (21.2-54.2); Mean Corpuscular HGB Conc 30.8 GM/DL (32-36); Mean Platelet Volume 10.7 FL (9.6-12.0); Neutrophils % 51.3 % (38.7-73.9); Platelet Count 269 T/CUMM (130-400); Red Blood Count 2.89 MC/CUMM (3.8-5.5); Red Cell Distribution Width 17.2 % (9.3-17.3); White Blood Count 9.7 T/CUMM (4-12)
[2019-02-09 06:37] LABS: Calcium 8.6 MG/DL (8.5-10.1); Osmolality,Calculated 295.8 MOS/KG (273-304)
[2019-02-09] MEDS: INSULIN GLARGINE 100 UNIT/ML SUBCUT SCH ×2 (10:34→21:11)
[2019-02-09] MEDS: SENNA 8.6 MG TABLET PO SCH (10:35)
[2019-02-09] MEDS: ASPIRIN EC 81 MG TABLET PO SCH (10:35)
[2019-02-09] MEDS: LANSOPRAZOLE ODT 30 MG TABLET PEG SCH (10:38)
[2019-02-09] MEDS: SKIN HEALING OINT (AQUAPHOR) 50 GM TUBE TOP SCH (10:38)
[2019-02-09] MEDS: POLYETHYLENE GLYCOL POWDER 17 GM PACK PEG SCH (10:38)
[2019-02-09] MEDS: DESITIN 4OZ/NYSTATIN 15 GRAM MIXTURE PASTE TOP SCH (10:38)
[2019-02-09] MEDS: glipiZIDE 10 MG TABLET PEG SCH ×2 (10:54→17:22)
[2019-02-09] MEDS: METOCLOPRAMIDE 10 MG TABLET PEG SCH ×4 (10:55→21:12)
[2019-02-09] MEDS: MULTIVITAMIN LIQUID (CENTRUM) 60 ML BOTTLE PEG SCH (11:02)
[2019-02-09] MEDS ORDERED: VANCOMYCIN INJ 1,000 MG in SODIUM CHLORIDE 0.9% 250 ML IV ONE (17:00)
[2019-02-09] MEDS: MEROPENEM 500 MG in SODIUM CHLORIDE 0.9% 100 ML IV SCH (17:08)
[2019-02-10] MEDS: ALBUMIN 25% 25 GM in PREMIX 1 EACH IV SCH ×3 (01:11→16:53)
[2019-02-10] MEDS: INSULIN REGULAR 100 UNIT/ML SUBCUT SCH ×4 (01:38→18:28)
[2019-02-10 03:55] LABS: Basophils # 0.1 10*3/uL (0.0-0.2); Eosinophils # 0.5 10*3/uL (0.0-0.87); Eosinophils % 6.6 % (0.00-10.9); Hemoglobin 8.1 GM/DL (14.0-18.0); Immature Granulocytes % 1.7 %; Immature Granulocytes Absolute 0.12 #; Lymphocytes % 27.8 % (21.2-54.2); Mean Corpuscular HGB Conc 31.2 GM/DL (32-36); Mean Corpuscular Volume 97.4 FL (87-102); Monocytes % 11.1 % (1.7-12.7); Neutrophils % 51.8 % (38.7-73.9); Platelet Count 269 T/CUMM (130-400); Red Blood Count 2.67 MC/CUMM (3.8-5.5); Red Cell Distribution Width 17.2 % (9.3-17.3); White Blood Count 7.1 T/CUMM (4-12)
[2019-02-10 04:19] LABS: Albumin 3.7 G/DL (3.4-5.0); Bilirubin,Total 0.6 MG/DL (0.2-1.0); Calcium 9.2 MG/DL (8.5-10.1); Osmolality,Calculated 284.5 MOS/KG (273-304); Total Protein 7.8 G/DL (6.4-8.3)
[2019-02-10] MEDS: LEVOTHYROXINE 150 MCG TABLET PER TUBE SCH (06:14)
[2019-02-10] MEDS ORDERED: GABAPENTIN 400 MG CAPSULE PO ONE (06:53)
[2019-02-10] MEDS ORDERED: DIAZEPAM 5 MG TABLET PO ONE (06:53)
[2019-02-10] MEDS ORDERED: FAMOTIDINE 20 MG TABLET PO ONE (06:53)
[2019-02-10] MEDS ORDERED: LACTATED RINGERS 1,000 ML IV SCH (07:00)
[2019-02-10] MEDS ORDERED: DEXTROSE 10% 250 ML IV ONE (11:34)
[2019-02-10] MEDS ORDERED: DEXTROSE 10% 250 ML IV PRN (12:03)
[2019-02-10] MEDS ORDERED: LIDOCAINE 1%/EPI INJ 20 ML VIAL ONE (12:20)
[2019-02-10] MEDS ORDERED: BUPIVACAINE 0.5% 50 ML VIAL ONE (12:22)
[2019-02-10] MEDS ORDERED: MIDAZOLAM 2 MG/2 ML VIAL ONE (13:58)
[2019-02-10] MEDS ORDERED: KETAMINE 500 MG/10 ML VIAL ONE (13:58)
[2019-02-10] MEDS: METOCLOPRAMIDE 10 MG TABLET PEG SCH ×3 (14:56→21:40)
[2019-02-10] MEDS: glipiZIDE 10 MG TABLET PEG SCH ×2 (14:56→15:30)
[2019-02-10] MEDS: ASPIRIN EC 81 MG TABLET PO SCH (14:56)
[2019-02-10] MEDS: INSULIN GLARGINE 100 UNIT/ML SUBCUT SCH (14:57)
[2019-02-10] MEDS: POLYETHYLENE GLYCOL POWDER 17 GM PACK PEG SCH (15:29)
[2019-02-10] MEDS: LANSOPRAZOLE ODT 30 MG TABLET PEG SCH (15:29)
[2019-02-10] MEDS ORDERED: INSULIN GLARGINE 100 UNIT/ML SUBCUT SCH ×2 (15:29→15:30)
[2019-02-10] MEDS: SKIN HEALING OINT (AQUAPHOR) 50 GM TUBE TOP SCH (15:30)
[2019-02-10] MEDS: MULTIVITAMIN LIQUID (CENTRUM) 60 ML BOTTLE PEG SCH (15:30)
[2019-02-10] MEDS: SENNA 8.6 MG TABLET PO SCH (15:30)
[2019-02-10] MEDS: DESITIN 4OZ/NYSTATIN 15 GRAM MIXTURE PASTE TOP SCH (15:30)
[2019-02-10] MEDS: MEROPENEM 500 MG in SODIUM CHLORIDE 0.9% 100 ML IV SCH (18:03)
[2019-02-11] MEDS: ALBUMIN 25% 25 GM in PREMIX 1 EACH IV SCH ×3 (00:52→20:00)
[2019-02-11] MEDS: INSULIN REGULAR 100 UNIT/ML SUBCUT SCH ×4 (00:52→18:48)
[2019-02-11] MEDS: LEVOTHYROXINE 150 MCG TABLET PER TUBE SCH (05:41)
[2019-02-11 06:16] LABS: Basophils # 0.1 10*3/uL (0.0-0.2); Basophils % 1.3 % (0.0-0.8); Eosinophils # 0.4 10*3/uL (0.0-0.87); Eosinophils % 4.8 % (0.00-10.9); Hematocrit 27.4 VOL% (42.0-52.0); Hemoglobin 8.2 GM/DL (14.0-18.0); Immature Granulocytes Absolute 0.08 #; Lymphocytes # 1.9 10*3/uL (1.4-4.0); Lymphocytes % 24.2 % (21.2-54.2); Mean Corpuscular HGB Conc 29.9 GM/DL (32-36); Mean Corpuscular Volume 100.7 FL (87-102); Mean Platelet Volume 10.3 FL (9.6-12.0); Monocytes % 11.9 % (1.7-12.7); Neutrophils % 56.8 % (38.7-73.9); Platelet Count 292 T/CUMM (130-400); Red Blood Count 2.72 MC/CUMM (3.8-5.5); Red Cell Distribution Width 17.1 % (9.3-17.3)
[2019-02-11] MEDS: SODIUM HYPOCHLORITE 0.25% IRRIG 473 ML BOTTLE TOP SCH (08:30)
[2019-02-11] MEDS: POLYETHYLENE GLYCOL POWDER 17 GM PACK PEG SCH (10:16)
[2019-02-11] MEDS: SENNA 8.6 MG TABLET PO SCH (10:16)
[2019-02-11] MEDS: LANSOPRAZOLE ODT 30 MG TABLET PEG SCH (10:16)
[2019-02-11] MEDS: glipiZIDE 10 MG TABLET PEG SCH ×2 (10:16→18:47)
[2019-02-11] MEDS: ASPIRIN EC 81 MG TABLET PO SCH (10:17)
[2019-02-11] MEDS: METOCLOPRAMIDE 10 MG TABLET PEG SCH ×2 (10:17→12:23)
[2019-02-11] MEDS: SKIN HEALING OINT (AQUAPHOR) 50 GM TUBE TOP SCH (10:38)
[2019-02-11] MEDS: MULTIVITAMIN LIQUID (CENTRUM) 60 ML BOTTLE PEG SCH (12:22)
[2019-02-11] MEDS: DESITIN 4OZ/NYSTATIN 15 GRAM MIXTURE PASTE TOP SCH (12:23)
[2019-02-11] MEDS ORDERED: VANCOMYCIN INJ 1,000 MG in SODIUM CHLORIDE 0.9% 250 ML IV ONE (17:00)
[2019-02-11] MEDS: METOCLOPRAMIDE 10 MG/10 ML UDCUP PEG SCH ×2 (18:47→21:28)
[2019-02-11] MEDS: HEPARIN 5,000 UNIT/1 ML VIAL SUBCUT SCH (18:48)
[2019-02-11] MEDS: MEROPENEM 500 MG in SODIUM CHLORIDE 0.9% 100 ML IV SCH (21:28)
[2019-02-11] MEDS: INSULIN GLARGINE 100 UNIT/ML SUBCUT SCH (21:29)
[2019-02-12] MEDS: INSULIN REGULAR 100 UNIT/ML SUBCUT SCH ×4 (00:48→17:43)
[2019-02-12] MEDS: ALBUMIN 25% 25 GM in PREMIX 1 EACH IV SCH ×3 (01:54→18:02)
[2019-02-12] MEDS: HEPARIN 5,000 UNIT/1 ML VIAL SUBCUT SCH ×3 (01:55→17:43)
[2019-02-12 04:52] LABS: Basophils # 0.1 10*3/uL (0.0-0.2); Basophils % 0.8 % (0.0-0.8); Eosinophils # 0.4 10*3/uL (0.0-0.87); Eosinophils % 5.1 % (0.00-10.9); Hematocrit 25.8 VOL% (42.0-52.0); Hemoglobin 7.9 GM/DL (14.0-18.0); Immature Granulocytes % 1.3 %; Immature Granulocytes Absolute 0.11 #; Lymphocytes # 2.8 10*3/uL (1.4-4.0); Lymphocytes % 32.8 % (21.2-54.2); Mean Corpuscular HGB Conc 30.6 GM/DL (32-36); Mean Corpuscular Volume 100.4 FL (87-102); Mean Platelet Volume 10.5 FL (9.6-12.0); Monocytes % 14.2 % (1.7-12.7); Neutrophils % 45.8 % (38.7-73.9); Platelet Count 281 T/CUMM (130-400); Red Blood Count 2.57 MC/CUMM (3.8-5.5); Red Cell Distribution Width 17.1 % (9.3-17.3); White Blood Count 8.6 T/CUMM (4-12)
[2019-02-12 05:49] LABS: Bilirubin,Total 0.4 MG/DL (0.2-1.0); Calcium 9.3 MG/DL (8.5-10.1); Osmolality,Calculated 283.2 MOS/KG (273-304); Total Protein 7.9 G/DL (6.4-8.3)
[2019-02-12] MEDS: METOCLOPRAMIDE 10 MG/10 ML UDCUP PEG SCH ×4 (06:40→21:11)
[2019-02-12] MEDS: LEVOTHYROXINE 150 MCG TABLET PER TUBE SCH (06:40)
[2019-02-12] MEDS: glipiZIDE 10 MG TABLET PEG SCH ×2 (09:05→17:42)
[2019-02-12] MEDS: SENNA 8.6 MG TABLET PO SCH (09:06)
[2019-02-12] MEDS: ASPIRIN CHEW 81 MG TABLET PO SCH (09:06)
[2019-02-12] MEDS: LANSOPRAZOLE ODT 30 MG TABLET PEG SCH (09:06)
[2019-02-12] MEDS: MULTIVITAMIN LIQUID (CENTRUM) 60 ML BOTTLE PEG SCH (09:07)
[2019-02-12] MEDS: INSULIN GLARGINE 100 UNIT/ML SUBCUT SCH ×2 (09:07→21:11)
[2019-02-12] MEDS: POLYETHYLENE GLYCOL POWDER 17 GM PACK PEG SCH (09:07)
[2019-02-12] MEDS: SKIN HEALING OINT (AQUAPHOR) 50 GM TUBE TOP SCH (09:08)
[2019-02-12] MEDS: DESITIN 4OZ/NYSTATIN 15 GRAM MIXTURE PASTE TOP SCH (09:08)
[2019-02-12] MEDS: SODIUM HYPOCHLORITE 0.25% IRRIG 473 ML BOTTLE TOP SCH (09:32)
[2019-02-12] MEDS ORDERED: SODIUM CHLORIDE 0.9% 1,000 ML IV PRN (12:35)
[2019-02-12] MEDS: MEROPENEM 500 MG in SODIUM CHLORIDE 0.9% 100 ML IV SCH (19:17)
[2019-02-13] MEDS: ALBUMIN 25% 25 GM in PREMIX 1 EACH IV SCH ×3 (00:29→17:51)
[2019-02-13] MEDS: INSULIN REGULAR 100 UNIT/ML SUBCUT SCH ×4 (04:23→17:36)
[2019-02-13] MEDS: glipiZIDE 10 MG TABLET PEG SCH (06:43)
[2019-02-13] MEDS: LEVOTHYROXINE 150 MCG TABLET PER TUBE SCH (06:43)
[2019-02-13] MEDS: METOCLOPRAMIDE 10 MG/10 ML UDCUP PEG SCH ×4 (06:43→22:27)
[2019-02-13] MEDS: LANSOPRAZOLE ODT 30 MG TABLET PEG SCH (08:58)
[2019-02-13] MEDS: ASPIRIN CHEW 81 MG TABLET PO SCH (08:58)
[2019-02-13] MEDS: SENNA 8.6 MG TABLET PO SCH (08:58)
[2019-02-13] MEDS: POLYETHYLENE GLYCOL POWDER 17 GM PACK PEG SCH (08:58)
[2019-02-13] MEDS: SKIN HEALING OINT (AQUAPHOR) 50 GM TUBE TOP SCH (08:59)
[2019-02-13] MEDS: HEPARIN 5,000 UNIT/1 ML VIAL SUBCUT SCH ×2 (08:59→22:28)
[2019-02-13] MEDS: MULTIVITAMIN LIQUID (CENTRUM) 60 ML BOTTLE PEG SCH (08:59)
[2019-02-13] MEDS: DESITIN 4OZ/NYSTATIN 15 GRAM MIXTURE PASTE TOP SCH (08:59)
[2019-02-13] MEDS: INSULIN GLARGINE 100 UNIT/ML SUBCUT SCH ×2 (08:59→22:27)
[2019-02-13] MEDS: MEROPENEM 500 MG in SODIUM CHLORIDE 0.9% 100 ML IV SCH (17:14)
[2019-02-13] MEDS: SODIUM HYPOCHLORITE 0.25% IRRIG 473 ML BOTTLE TOP SCH (17:52)
[2019-02-14] MEDS: INSULIN REGULAR 100 UNIT/ML SUBCUT SCH ×4 (00:52→17:47)
[2019-02-14] MEDS: ALBUMIN 25% 25 GM in PREMIX 1 EACH IV SCH ×2 (00:54→10:21)
[2019-02-14] MEDS: METOCLOPRAMIDE 10 MG/10 ML UDCUP PEG SCH ×5 (06:13→21:59)
[2019-02-14] MEDS: LEVOTHYROXINE 150 MCG TABLET PER TUBE SCH (06:13)
[2019-02-14] MEDS ORDERED: VANCOMYCIN INJ 1,000 MG in SODIUM CHLORIDE 0.9% 250 ML IV PRN (10:00)
[2019-02-14] MEDS: ASPIRIN CHEW 81 MG TABLET PO SCH (10:21)
[2019-02-14] MEDS: DESITIN 4OZ/NYSTATIN 15 GRAM MIXTURE PASTE TOP SCH (10:21)
[2019-02-14] MEDS: HEPARIN 5,000 UNIT/1 ML VIAL SUBCUT SCH ×2 (10:22→21:59)
[2019-02-14] MEDS: INSULIN GLARGINE 100 UNIT/ML SUBCUT SCH ×2 (10:22→21:59)
[2019-02-14] MEDS: POLYETHYLENE GLYCOL POWDER 17 GM PACK PEG SCH (10:22)
[2019-02-14] MEDS: SENNA 8.6 MG TABLET PO SCH (10:22)
[2019-02-14] MEDS: LANSOPRAZOLE ODT 30 MG TABLET PEG SCH (10:22)
[2019-02-14] MEDS: MULTIVITAMIN LIQUID (CENTRUM) 60 ML BOTTLE PEG SCH (10:23)
[2019-02-14] MEDS: SKIN HEALING OINT (AQUAPHOR) 50 GM TUBE TOP SCH (10:23)
[2019-02-14] MEDS: SODIUM HYPOCHLORITE 0.25% IRRIG 473 ML BOTTLE TOP SCH (10:23)
[2019-02-14 14:28] LABS: Basophils # 0.1 10*3/uL (0.0-0.2); Basophils % 0.7 % (0.0-0.8); Eosinophils # 0.6 10*3/uL (0.0-0.87); Eosinophils % 7.8 % (0.00-10.9); Hematocrit 25.4 VOL% (42.0-52.0); Hemoglobin 7.9 GM/DL (14.0-18.0); Immature Granulocytes % 0.9 %; Immature Granulocytes Absolute 0.07 #; Lymphocytes # 1.8 10*3/uL (1.4-4.0); Lymphocytes % 22.3 % (21.2-54.2); Mean Corpuscular HGB Conc 31.1 GM/DL (32-36); Mean Corpuscular Volume 98.4 FL (87-102); Mean Platelet Volume 10.7 FL (9.6-12.0); Monocytes % 8.7 % (1.7-12.7); Neutrophils % 59.6 % (38.7-73.9); Platelet Count 304 T/CUMM (130-400); Red Blood Count 2.58 MC/CUMM (3.8-5.5); Red Cell Distribution Width 16.8 % (9.3-17.3); White Blood Count 8.2 T/CUMM (4-12)
[2019-02-14 14:52] LABS: Albumin 4.4 G/DL (3.4-5.0); Bilirubin,Direct 0.17 MG/DL (0.0-0.20); Bilirubin,Total 1.2 MG/DL (0.2-1.0); Calcium 9.3 MG/DL (8.5-10.1); Osmolality,Calculated 287.7 MOS/KG (273-304); Total Protein 8.1 G/DL (6.4-8.3)
[2019-02-14] MEDS ORDERED: VANCOMYCIN INJ 1,000 MG in SODIUM CHLORIDE 0.9% 250 ML IV ONE (17:00)
[2019-02-14] MEDS: MEROPENEM 500 MG in SODIUM CHLORIDE 0.9% 100 ML IV SCH (17:46)
[2019-02-15] MEDS: INSULIN REGULAR 100 UNIT/ML SUBCUT SCH ×3 (01:24→12:29)
[2019-02-15] MEDS: LEVOTHYROXINE 150 MCG TABLET PER TUBE SCH (07:00)
[2019-02-15] MEDS: INSULIN GLARGINE 100 UNIT/ML SUBCUT SCH (08:53)
[2019-02-15] MEDS: POLYETHYLENE GLYCOL POWDER 17 GM PACK PEG SCH (08:54)
[2019-02-15] MEDS: SKIN HEALING OINT (AQUAPHOR) 50 GM TUBE TOP SCH (08:54)
[2019-02-15] MEDS: ASPIRIN CHEW 81 MG TABLET PO SCH (08:54)
[2019-02-15] MEDS: METOCLOPRAMIDE 10 MG/10 ML UDCUP PEG SCH ×2 (08:54→12:29)
[2019-02-15] MEDS: HEPARIN 5,000 UNIT/1 ML VIAL SUBCUT SCH (08:54)
[2019-02-15] MEDS: ERGOCALCIFEROL 50,000 UNIT CAPSULE PO SCH (08:54)
[2019-02-15] MEDS: MULTIVITAMIN LIQUID (CENTRUM) 60 ML BOTTLE PEG SCH (08:54)
[2019-02-15] MEDS: SENNA 8.6 MG TABLET PO SCH (08:54)
[2019-02-15] MEDS: LANSOPRAZOLE ODT 30 MG TABLET PEG SCH (08:54)
[2019-02-15] MEDS: SODIUM HYPOCHLORITE 0.25% IRRIG 473 ML BOTTLE TOP SCH (08:55)
[2019-02-15 11:59] VITALS: BP 123/46
[2019-02-15] MEDS: DESITIN 4OZ/NYSTATIN 15 GRAM MIXTURE PASTE TOP SCH (12:29)
== END 2019-02-15 14:59 | DRG 853 ==
LOC: EDBD → EDUNIT# → N.ED 18:41 → SUATTDRO 21:41 → N.EDINP 21:41 → N.2E 22:11 → N.CC 02-04 02:08 → N.2E 02-08 16:19
PROVIDERS: ADMIT Internal Medicine; ATTEND Internal Medicine

== ENCOUNTER 2019-11-19 14:02 | Inpatient (IN) ==
[2019-11-19] MEDS ORDERED: ONDANSETRON 4 MG/2 ML VIAL IV STA (14:36)
[2019-11-19 15:26] LABS: Basophils # 0.1 10*3/uL (0.0-0.2); Basophils % 1.1 % (0.0-0.8); Eosinophils # 0.5 10*3/uL (0.0-0.87); Eosinophils % 6.4 % (0.00-10.9); Hematocrit 34.9 VOL% (42.0-52.0); Hemoglobin 10.6 GM/DL (14.0-18.0); Immature Granulocytes % 0.7 %; Immature Granulocytes Absolute 0.06 #; Lymphocytes # 0.9 10*3/uL (1.4-4.0); Lymphocytes % 11.2 % (21.2-54.2); Mean Corpuscular HGB Conc 30.4 GM/DL (32-36); Mean Corpuscular Volume 87.5 FL (87-102); Mean Platelet Volume 11.6 FL (9.6-12.0); Monocytes % 11.2 % (1.7-12.7); Neutrophils % 69.4 % (38.7-73.9); Platelet Count 322 T/CUMM (130-400); Red Blood Count 3.99 MC/CUMM (3.8-5.5); Red Cell Distribution Width 18.6 % (9.3-17.3); White Blood Count 8.2 T/CUMM (4-12)
[2019-11-19 15:36] LABS: Alanine Aminotransferase 39 U/L (16-61); Albumin 1.9 G/DL (3.4-5.0); Alkaline Phosphatase 504 U/L (45-117); Aspartate Amino Transferase 75 U/L (0-37); Bilirubin,Total < 0.39 MG/DL (0.2-1.0); Blood Urea Nitrogen 66 MG/DL (7-18); Calcium 8.9 MG/DL (8.5-10.1); Estimated Glom Filtration Rate 23 ML/MIN; Glucose 65 MG/DL (74-106); Osmolality,Calculated 278.7 MOS/KG (273-304); Total Protein 9.3 G/DL (6.4-8.3)
[2019-11-19] MEDS ORDERED: GLUCAGON 1 MG VIAL IM PRN ×2 (18:41→18:49)
[2019-11-19] MEDS ORDERED: DEXTROSE 50% 25 GM/50 ML VIAL IV PRN ×2 (18:41→18:49)
[2019-11-19] MEDS ORDERED: ALBUTEROL/IPRATROPIUM 3 ML NEB RESP TX ONE (18:50)
[2019-11-19] MEDS: ALBUTEROL 2.5 MG/3 ML NEB RESP TX SCH (18:59)
[2019-11-19] MEDS ORDERED: VANCOMYCIN INJ 1,000 MG in SODIUM CHLORIDE 0.9% 250 ML IV ONE (20:00)
[2019-11-19] MEDS ORDERED: VANCOMYCIN INJ 1,000 MG in SODIUM CHLORIDE 0.9% 250 ML IV PRN (20:04)
[2019-11-19] MEDS ORDERED: VANCOMYCIN INJ 2,000 MG in SODIUM CHLORIDE 0.9% 500 ML IV ONE (20:30)
[2019-11-19] MEDS: INSULIN REGULAR 100 UNIT/ML SUBCUT SCH (21:33)
[2019-11-19] MEDS: HEPARIN 5,000 UNIT/1 ML VIAL SUBCUT SCH (22:04)
[2019-11-19] MEDS: cefTRIAXone 2,000 MG in SYRINGE 1 EACH IV SCH (23:55)
[2019-11-20] MEDS ORDERED: ACETAMINOPHEN 650 MG SUPP RECTAL PRN (00:21)
[2019-11-20] MEDS ORDERED: SODIUM CHLORIDE 0.9% 250 ML IV ONE (00:24)
[2019-11-20] MEDS: ALBUTEROL 2.5 MG/3 ML NEB RESP TX SCH ×4 (00:54→20:05)
[2019-11-20] MEDS ORDERED: METOPROLOL TARTRATE 5 MG/5 ML VIAL IV ONE (02:27)
[2019-11-20] MEDS: HEPARIN 5,000 UNIT/1 ML VIAL SUBCUT SCH ×3 (03:37→20:42)
[2019-11-20 06:04] LABS: Eosinophils % 1.2 % (0.00-10.9); Hemoglobin 9.8 GM/DL (14.0-18.0)
[2019-11-20 06:11] LABS: Basophils # 0.1 10*3/uL (0.0-0.2); Basophils % 0.5 % (0.0-0.8); Eosinophils # 0.3 10*3/uL (0.0-0.87); Hematocrit 32.7 VOL% (42.0-52.0); Immature Granulocytes % 0.8 %; Immature Granulocytes Absolute 0.17 #; Lymphocytes # 1.7 10*3/uL (1.4-4.0); Lymphocytes % 7.8 % (21.2-54.2); Mean Corpuscular Volume 88.1 FL (87-102); Mean Platelet Volume 10.9 FL (9.6-12.0); Neutrophils % 82.7 % (38.7-73.9); Platelet Count 328 T/CUMM (130-400); Red Blood Count 3.71 MC/CUMM (3.8-5.5); Red Cell Distribution Width 18.3 % (9.3-17.3); White Blood Count 22.1 T/CUMM (4-12)
[2019-11-20 06:25] LABS: Calcium 8.4 MG/DL (8.5-10.1); Osmolality,Calculated 288.5 MOS/KG (273-304)
[2019-11-20 06:57] LABS: Anisocytosis 1+; Band Neutrophils 3 % (0-10); Eosinophils 1 % (0-10); Hypochromasia 1+; Lymphocytes 7 % (20-55); Macrocytosis 1+; Platelet Estimate Normal; Polychromasia 2+; Segmented Neutrophils 83 % (50-85); Total Cells Counted 100
[2019-11-20] MEDS: PANTOPRAZOLE 40 MG TABLET PO SCH (11:19)
[2019-11-20] MEDS: INSULIN REGULAR 100 UNIT/ML SUBCUT SCH ×4 (11:20→21:19)
[2019-11-20] MEDS ORDERED: LEVOTHYROXINE 175 MCG TABLET PEG SCH (16:00)
[2019-11-20] MEDS: cefTRIAXone 2,000 MG in SYRINGE 1 EACH IV SCH (23:18)
[2019-11-21] MEDS: ALBUTEROL 2.5 MG/3 ML NEB RESP TX SCH ×4 (01:37→19:40)
[2019-11-21] MEDS: HEPARIN 5,000 UNIT/1 ML VIAL SUBCUT SCH ×3 (04:18→21:04)
[2019-11-21 07:12] LABS: Basophils # 0.2 10*3/uL (0.0-0.2); Basophils % 0.8 % (0.0-0.8); Eosinophils # 0.2 10*3/uL (0.0-0.87); Eosinophils % 1.2 % (0.00-10.9); Hemoglobin 10.2 GM/DL (14.0-18.0); Immature Granulocytes % 0.7 %; Immature Granulocytes Absolute 0.14 #; Lymphocytes # 1.1 10*3/uL (1.4-4.0); Lymphocytes % 5.8 % (21.2-54.2); Mean Platelet Volume 10.7 FL (9.6-12.0); Monocytes % 6.5 % (1.7-12.7); Platelet Count 377 T/CUMM (130-400); Red Blood Count 3.82 MC/CUMM (3.8-5.5); Red Cell Distribution Width 18.4 % (9.3-17.3); White Blood Count 19.3 T/CUMM (4-12)
[2019-11-21 07:32] LABS: Osmolality,Calculated 298.7 MOS/KG (273-304)
[2019-11-21] MEDS: ONDANSETRON 4 MG/2 ML VIAL IV PRN ×2 (09:03→16:01)
[2019-11-21 09:23] LABS: Risk Ratio 2.73
[2019-11-21] MEDS: INSULIN REGULAR 100 UNIT/ML SUBCUT SCH ×4 (10:27→21:04)
[2019-11-21] MEDS: PANTOPRAZOLE 40 MG TABLET PO SCH (10:32)
[2019-11-21] MEDS: POLYETHYLENE GLYCOL POWDER 17 GM PACK PEG SCH (10:32)
[2019-11-21] MEDS: METOCLOPRAMIDE 10 MG TABLET PEG SCH ×4 (10:32→21:04)
[2019-11-21] MEDS: ZINC OXIDE PASTE 113 GM TUBE TOP SCH (10:34)
[2019-11-21] MEDS ORDERED: traMADol 50 MG TABLET PO PRN (11:36)
[2019-11-21] MEDS ORDERED: HYDROmorphone 2 MG/1 ML VIAL IV PRN (11:46)
[2019-11-21 12:27] LABS: Free T4 (Free Thyroxine) 1.21 NG/DL (0.76-1.46); Thyroid Stimulating Hormone 11.8 uIU/ml (0.358-3.74)
[2019-11-21] MEDS: LEVOTHYROXINE 200 MCG TABLET PEG SCH (16:30)
[2019-11-21] MEDS: SODIUM HYPOCHLORITE 0.25% IRRIG 473 ML BOTTLE TOP SCH (18:42)
[2019-11-21] MEDS ORDERED: INSULIN DETEMIR 100 UNIT/ML SUBCUT SCH (21:00)
[2019-11-21] MEDS ORDERED: INSULIN GLARGINE 100 UNIT/ML SUBCUT SCH (21:00)
[2019-11-22] MEDS: ALBUTEROL 2.5 MG/3 ML NEB RESP TX SCH ×4 (00:10→18:40)
[2019-11-22] MEDS: cefTRIAXone 2,000 MG in SYRINGE 1 EACH IV SCH (00:12)
[2019-11-22] MEDS: METOPROLOL TARTRATE 25 MG TABLET PEG SCH ×2 (00:12→11:12)
[2019-11-22] MEDS: HEPARIN 5,000 UNIT/1 ML VIAL SUBCUT SCH ×3 (04:48→22:13)
[2019-11-22] MEDS: INSULIN REGULAR 100 UNIT/ML SUBCUT SCH ×4 (08:21→22:14)
[2019-11-22 08:26] LABS: Basophils # 0.2 10*3/uL (0.0-0.2); Basophils % 0.9 % (0.0-0.8); Eosinophils # 0.6 10*3/uL (0.0-0.87); Eosinophils % 3.4 % (0.00-10.9); Hematocrit 32.8 VOL% (42.0-52.0); Hemoglobin 9.7 GM/DL (14.0-18.0); Immature Granulocytes % 0.8 %; Immature Granulocytes Absolute 0.15 #; Lymphocytes # 2.2 10*3/uL (1.4-4.0); Lymphocytes % 12.1 % (21.2-54.2); Mean Corpuscular HGB Conc 29.6 GM/DL (32-36); Mean Corpuscular Volume 89.4 FL (87-102); Mean Platelet Volume 10.2 FL (9.6-12.0); Monocytes % 9.6 % (1.7-12.7); Neutrophils % 73.2 % (38.7-73.9); Platelet Count 394 T/CUMM (130-400); Red Blood Count 3.67 MC/CUMM (3.8-5.5); Red Cell Distribution Width 18.1 % (9.3-17.3); White Blood Count 18.2 T/CUMM (4-12)
[2019-11-22 08:39] LABS: Calcium 8.5 MG/DL (8.5-10.1); Osmolality,Calculated 307.1 MOS/KG (273-304)
[2019-11-22 08:44] LABS: Prealbumin 11.8 MG/DL (20-40)
[2019-11-22] MEDS ORDERED: HEPARIN 10,000 UNIT/10 ML VIAL IV SCH (11:30)
[2019-11-22] MEDS: METOCLOPRAMIDE 10 MG TABLET PEG SCH ×4 (14:21→22:13)
[2019-11-22] MEDS: PANTOPRAZOLE 40 MG TABLET PO SCH (14:29)
[2019-11-22] MEDS: POLYETHYLENE GLYCOL POWDER 17 GM PACK PEG SCH (14:29)
[2019-11-22] MEDS: AZITHROMYCIN 250 MG TABLET PO SCH (14:29)
[2019-11-22] MEDS: ZINC OXIDE PASTE 113 GM TUBE TOP SCH (14:30)
[2019-11-22] MEDS: SODIUM HYPOCHLORITE 0.25% IRRIG 473 ML BOTTLE TOP SCH (14:30)
[2019-11-22] MEDS ORDERED: VANCOMYCIN INJ 750 MG in SODIUM CHLORIDE 0.9% 250 ML IV ONE (17:00)
[2019-11-22] MEDS: LEVOTHYROXINE 200 MCG TABLET PEG SCH (17:07)
[2019-11-22] MEDS: INSULIN GLARGINE 100 UNIT/ML SUBCUT SCH (22:15)
[2019-11-23] MEDS: cefTRIAXone 2,000 MG in SYRINGE 1 EACH IV SCH ×2 (00:34→23:33)
[2019-11-23] MEDS: HEPARIN 5,000 UNIT/1 ML VIAL SUBCUT SCH ×3 (02:59→21:30)
[2019-11-23] MEDS: ALBUTEROL 2.5 MG/3 ML NEB RESP TX SCH ×4 (06:43→19:47)
[2019-11-23] MEDS: INSULIN REGULAR 100 UNIT/ML SUBCUT SCH ×4 (09:18→21:25)
[2019-11-23] MEDS: AZITHROMYCIN 250 MG TABLET PO SCH (12:43)
[2019-11-23] MEDS: METOPROLOL TARTRATE 25 MG TABLET PEG SCH (12:43)
[2019-11-23] MEDS: PANTOPRAZOLE 40 MG TABLET PO SCH (12:43)
[2019-11-23] MEDS: METOCLOPRAMIDE 10 MG TABLET PEG SCH ×4 (12:44→21:25)
[2019-11-23] MEDS: POLYETHYLENE GLYCOL POWDER 17 GM PACK PEG SCH (12:49)
[2019-11-23] MEDS: ZINC OXIDE PASTE 113 GM TUBE TOP SCH (12:50)
[2019-11-23] MEDS: SODIUM HYPOCHLORITE 0.25% IRRIG 473 ML BOTTLE TOP SCH (14:00)
[2019-11-23] MEDS: LEVOTHYROXINE 200 MCG TABLET PEG SCH (17:34)
[2019-11-23] MEDS: INSULIN GLARGINE 100 UNIT/ML SUBCUT SCH (21:26)
[2019-11-24] MEDS: ALBUTEROL 2.5 MG/3 ML NEB RESP TX SCH ×4 (01:18→19:29)
[2019-11-24] MEDS: HEPARIN 5,000 UNIT/1 ML VIAL SUBCUT SCH ×3 (03:19→21:13)
[2019-11-24 07:15] LABS: Calcium 9.1 MG/DL (8.5-10.1)
[2019-11-24] MEDS: INSULIN REGULAR 100 UNIT/ML SUBCUT SCH ×4 (08:12→21:06)
[2019-11-24] MEDS: POLYETHYLENE GLYCOL POWDER 17 GM PACK PEG SCH (08:17)
[2019-11-24] MEDS: METOCLOPRAMIDE 10 MG TABLET PEG SCH ×4 (10:04→21:13)
[2019-11-24] MEDS: AZITHROMYCIN 250 MG TABLET PO SCH (10:05)
[2019-11-24] MEDS: PANTOPRAZOLE 40 MG TABLET PO SCH (10:05)
[2019-11-24] MEDS: METOPROLOL TARTRATE 25 MG TABLET PEG SCH (10:15)
[2019-11-24] MEDS: ZINC OXIDE PASTE 113 GM TUBE TOP SCH (13:15)
[2019-11-24] MEDS: SODIUM HYPOCHLORITE 0.25% IRRIG 473 ML BOTTLE TOP SCH (13:15)
[2019-11-24] MEDS: LEVOTHYROXINE 200 MCG TABLET PEG SCH (16:38)
[2019-11-24] MEDS ORDERED: VANCOMYCIN INJ 1,000 MG in SODIUM CHLORIDE 0.9% 250 ML IV ONE (17:00)
[2019-11-24] MEDS: INSULIN GLARGINE 100 UNIT/ML SUBCUT SCH (21:06)
[2019-11-25] MEDS: ALBUTEROL 2.5 MG/3 ML NEB RESP TX SCH ×4 (01:31→19:46)
[2019-11-25] MEDS ORDERED: cefTRIAXone 2,000 MG VIAL IM SCH (02:00)
[2019-11-25] MEDS: HEPARIN 5,000 UNIT/1 ML VIAL SUBCUT SCH ×3 (06:08→18:16)
[2019-11-25] MEDS: cefTRIAXone 2,000 MG in SYRINGE 1 EACH IV SCH (07:57)
[2019-11-25] MEDS ORDERED: INSULIN GLARGINE 100 UNIT/ML SUBCUT SCH (09:00)
[2019-11-25] MEDS: METOPROLOL TARTRATE 25 MG TABLET PEG SCH (09:36)
[2019-11-25] MEDS: INSULIN REGULAR 100 UNIT/ML SUBCUT SCH ×4 (09:36→21:51)
[2019-11-25] MEDS: AZITHROMYCIN 250 MG TABLET PO SCH (09:36)
[2019-11-25] MEDS: PANTOPRAZOLE 40 MG TABLET PO SCH (09:36)
[2019-11-25] MEDS: METOCLOPRAMIDE 10 MG TABLET PEG SCH ×4 (09:36→21:52)
[2019-11-25] MEDS: SODIUM HYPOCHLORITE 0.25% IRRIG 473 ML BOTTLE TOP SCH (09:36)
[2019-11-25] MEDS: ZINC OXIDE PASTE 113 GM TUBE TOP SCH (09:37)
[2019-11-25] MEDS: POLYETHYLENE GLYCOL POWDER 17 GM PACK PEG SCH (09:37)
[2019-11-25] MEDS ORDERED: LEVOFLOXACIN 500 MG TABLET PEG SCH (12:00)
[2019-11-25] MEDS: LEVOTHYROXINE 200 MCG TABLET PEG SCH (16:13)
[2019-11-25] MEDS: INSULIN GLARGINE 100 UNIT/ML SUBCUT SCH (21:51)
[2019-11-26] MEDS: ALBUTEROL 2.5 MG/3 ML NEB RESP TX SCH ×2 (00:17→07:06)
[2019-11-26] MEDS: HEPARIN 5,000 UNIT/1 ML VIAL SUBCUT SCH ×2 (03:34→12:08)
[2019-11-26] MEDS ORDERED: LEVOTHYROXINE 200 MCG TABLET PEG SCH (07:00)
[2019-11-26 08:15] VITALS: BP 130/68
[2019-11-26] MEDS ORDERED: INSULIN GLARGINE 100 UNIT/ML SUBCUT SCH (09:00)
[2019-11-26] MEDS: POLYETHYLENE GLYCOL POWDER 17 GM PACK PEG SCH (09:04)
[2019-11-26] MEDS: INSULIN REGULAR 100 UNIT/ML SUBCUT SCH (09:04)
[2019-11-26] MEDS: METOPROLOL TARTRATE 25 MG TABLET PEG SCH (09:05)
[2019-11-26] MEDS: SODIUM HYPOCHLORITE 0.25% IRRIG 473 ML BOTTLE TOP SCH (09:05)
[2019-11-26] MEDS: PANTOPRAZOLE 40 MG TABLET PO SCH (09:05)
[2019-11-26] MEDS: METOCLOPRAMIDE 10 MG TABLET PEG SCH (09:05)
[2019-11-26] MEDS: ZINC OXIDE PASTE 113 GM TUBE TOP SCH (09:05)
== END 2019-11-26 12:54 | disposition hospice, inpatient (51) | DRG 177 ==
LOC: N.ED 14:02 → N.EDINP 18:41 → SUATTDRO 18:41 → N.3E 19:39
PROVIDERS: ADMIT Emergency Medicine; ATTEND Internal Medicine